=== PATIENT | male | born 1950 | race Caucasian/White ===

== ENCOUNTER 2020-06-12 14:53 | Inpatient (IN) | payer MEDICARE, SELFPAY ==
[2020-06-12 14:57] VITALS: BP 123/83; BP 127/82; PULSE 91; RESP 17; TEMP 36.8; O2SAT 98; BMI 27.8
--- NOTE | 2020-06-12 15:04 | RAD_ITS ---
STUDY: X-RAY - PELVIS AND LEFT HIP REASON FOR EXAM: Male, 69 years old. fall, left hip pain, shortening and rotation TECHNIQUE: 3 views of the pelvis and hip. COMPARISON: None. FINDINGS: There is a non-specific bowel gas pattern. Normal visualized soft tissue structures. Normal bilateral iliac wings, sacroiliac joints and visualized sacrum. Normal bilateral superior and inferior pubic rami. Normal pubic symphysis. Normal bilateral ischial tuberosities. Acute angulated fracture of the intertrochanteric left femur. Normal acetabulum. Normal hip joint. RAD/HIP, UNI W/ Pelvis 2-3 Views IMPRESSION: Acute angulated fracture of the intertrochanteric femur. Electronically Signed: Bennett Rand MD at 16:01 EST Tel , Service support ,
--- NOTE | 2020-06-12 15:04 | EKG12_ITS ---
Test Reason : FALL Blood Pressure : / mmHG Vent. Rate : 083 BPM Atrial Rate : 083 BPM P-R Int : 146 ms QRS Dur : 096 ms QT Int : 372 ms P-R-T Axes : 070 -64 080 degrees QTc Int : 437 ms Sinus rhythm with Premature atrial complexes Left axis deviation Low voltage QRS Abnormal ECG Confirmed by CRIS POLK, SUMAN ([id number]), editor in chief KHAI GOTTLIEB ([id number]) on 06/19/2020 10:26:24 AM Referred By: TAMMIE Confirmed By:SANGEETA LYNCH MD
--- NOTE | 2020-06-12 15:06 | ED.DCSUM_ITS ---
- ER Visit Summary Date of Service: 06/12/20 Chief Complaint: Fall, left hip pain History of Present Illness: The patient is a [address] Black. He reports that he was walking his dog and slipped on the slope of his driveway. States that he landed on his left hip. He has pain extension with movement is pain- free at rest. He denies any loss of consciousness or headache. He is not on anticoagulants. He denies any neck, back, shoulder, wrist, or right hip pain. Physical Examination: Vitals: Stable. Afebrile. Neck: No vertebral tenderness. Full ROM without difficulty. Cleared by NEXUS criteria. Back: No vertebral tenderness. General: A&O x 3. NAD. Cardiovascular exam: Regular rate and rhythm, no murmur, rub or gallop. Respiratory exam: Chest nontender. No crepitus. Clear to auscultation bilaterally. No wheezes or stridor. Abdominal exam: Soft, nontender, nondistended, normal bowel sounds. No pain in RUQ or LUQ specifically. No peritoneal signs. Extremity: Left leg is shortened and externally rotated. He has pain with minimal internal and external rotation. He has a 2+ dorsalis pedis pulse normal sensation to light touch. Test Results: EKG is sinus at 83 with PACs and nonspecific ST changes. Left hip x-ray shows an intertrochanteric fracture. CBC shows 7 neutrophils of 40 and monocytes of 15. Chem-7 is normal. Coags are normal. Chest x-ray shows chronic changes and hyperinflation. Emergency Department Course and Treatment: Patient had an IV on arrival. He was given morphine and Zofran IV. He is resting more comfortably. Treatment Plan: Patient was discussed with Dr. Kebede and Dr. Vargas. He will be admitted to the hospital for further evaluation and treatment. Disposition: Admitted in improved condition. Impression: 1. Fall. 2. Left hip fracture. This note was generated with [employer] dictation software. It may contain incorrect words, spelling, and punctuation that were not noted in review of the chart prior to signing ED Disposition - Plan for ED Patient: Referrals: Inocencio Black MD [Primary Care Provider] -
[2020-06-12 15:11] LABS: Absolute Lymphocyte Count 4.15 X10^3/uL (0.83-4.51); Basophil# 0.09 X10^3/uL; Basophil% 0.9 % (0-1); Eosinophil# 0.37 X10^3/uL; Eosinophils% 3.6 % (0-5); Hematocrit 48.2 % (40-54); Lymphocyte # 4.15 X10^3/ul (4.0); Lymphocyte % 40.8 % (19-41); Mean Corp Hgb Conc 33.2 g/dL (32-36); Mean Corpuscular Hgb 34.7 pg (27.0-32.0); Mean Corpuscular Volume 104.6 fL (80-94); Monocyte# 1.53 X10^3/uL; NRBC Flagged by Analyzer 0 % (0-5); Neutrophil # 4.01 X10^3/uL (2.7-7.7); Neutrophil % 39.5 % (47-70); POSITIVE DIFFERENTIAL YES; Platelet Count 363 K/mm3 (150-450); RBC Distribution Width CV 12.9 % (11.6-14.6); RBC Distribution Width SD 49.9 fl (35.1-43.9); Red Blood Count 4.61 M/mm3 (4.6-6.2); White Blood Count 10.2 K/mm3 (4.4-11.0)
[2020-06-12 15:24] LABS: Prothrombin Time (Protime)PT. 12.7 SECONDS (11.7-14.9)
[2020-06-12 15:25] LABS: Anion Gap 5 (5-15); BUN 14 mg/dL (7-18); BUN/Creat Ratio 14.8 RATIO (10-20); Calcium,Total 9.3 mg/dL (8.5-10.1); Chloride 106 mmol/L (98-107); Creatinine, Serum 0.95 mg/dL (0.70-1.30); EST Glomerular Filtration Rate 84 mL/min (>60); Est Glom Filt Rate - Afr Amer 102 mL/min (>60); Estimated Creatinine Clearance 84.11 ml/min; Glucose 100 mg/dL (74-106); Potassium 3.5 mmol/L (3.5-5.1); Sodium Level 142 mmol/L (136-145)
[2020-06-12] MEDS: Morphine 4 MG/ML Syringe IV ×2 (15:26→16:31)
--- NOTE | 2020-06-12 15:40 | RAD_ITS ---
STUDY: X-RAY CHEST REASON FOR EXAM: Male, 69 years old. fall, left hip pain, shortening and rotation TECHNIQUE: Single AP portable view of the chest. COMPARISON: 05/14/2015 FINDINGS: The lungs are clear and expanded. There is no demonstrated pleural abnormality. Normal size heart. Normal mediastinum and angelica. Normal visualized pulmonary arteries. Normal visualized aortic arch and descending thoracic aorta. Normal visualized thoracic spine. Normal visualized ribs, clavicles, and shoulders. There is no demonstrated abnormality of the visualized soft tissue structures of the upper abdomen. RAD/Chest 1 View (Portable) IMPRESSION: Normal x-ray examination of the chest. Electronically Signed: Bennett Rand MD at 16:01 EST Tel , Service support ,
[2020-06-12 15:49] LABS: Differential Indicated SCAN CRITERIA MET
[2020-06-12 16:15] LABS: Platelet Estimate ADEQUATE (ADEQ); Reactive Lymphocyte 1+
[2020-06-12 16:34] VITALS: BP 111/71; PULSE 78; RESP 16; TEMP 36.8; O2SAT 99
--- NOTE | 2020-06-12 16:36 | NURSING ---
MED SURG WHITE LEFT HIP FX
--- NOTE | 2020-06-12 17:01 | HP.PCM_ITS ---
Problem List (1) Intertrochanteric fracture Status: Acute (2) Nicotine abuse Status: Chronic History of Present Illness Date of Admission: 06/12/20 Chief Complaint: left hip pain The patient is a 69 year old M with pmhx of smoking, HLD, and prior left knee repair with Dr. Varela who presented to the ER with c/o left hip pain. The patient slipped and fell while out walking his dog today. He landed directly on his left hip. He developed severe pain and inability to stand or ambulate. He presented to the ER via EMS and was found to have a left intertroch fracture. The pain has improved to 5/10. He has otherwise been in his normal state of health. [] Past Medical History Past Medical History (Chronic Problems): Chronic Problems Nicotine abuse (Chronic) Allergies No Known Allergies Allergy (Verified 06/12/20 14:56) Home Medications: Ambulatory Orders Medication Instructions Recorded Ascorbic Acid [C-1000] 1,000 mg PO 4X/DAY 06/12/20 Aspirin E.C. [Ecotrin] 81 mg PO DAILY@0800 06/12/20 Aspirin E.C. [Ecotrin] 325 mg PO DAILY@0800 06/12/20 Atorvastatin Calcium [Lipitor] 20 mg PO DAILY 06/12/20 Cholecalciferol (Vitamin D3) 1,000 unit PO DAILY 06/12/20 [Vitamin D3] Cyanocobalamin (Vitamin B-12) 1,000 mcg PO DAILY 06/12/20 [Vitamin B-12] Multivitamin with Minerals 1 tab PO DAILY 06/12/20 [Multiple Vitamin] Vitamin A 8,000 unit PO DAILY 06/12/20 Surgical History: - - left knee repair, small bowel fistula repair, appendectomy Lives: Spouse/ Significant Other Smoking Status: Current every day smoker Tobacco Use: Non-smoker Alcohol: None Drugs: None - *Family History Maternal History Items: No pertinent history Paternal History Items: No pertinent history Review of Systems Constitutional: Denies: Chills, Fever, Weight Change HEENT: Denies: Hard of Hearing, Head Aches, Sinus Congestion, Sinus Drainage Cardiovascular: Denies: Chest Pain, Heaviness, Palpitations Respiratory: Denies: Cough, Shortness of breath at rest, Sputum production Gastrointestinal: Denies: Abdominal Pain, Nausea, Vomiting Genitourinary: Denies: Dysuria Musculoskeletal: Denies: Joint Pain, Joint Tenderness Skin: Denies: Lesions, Rash, Wounds Neurological: Denies: Numbness, Tingling, Focal weakness Psychiatric: Denies: Anxiety, Depression, Homicidal Ideations, Suicidal Ideations Hematologic/ Lymphatic: Denies: Easy Bruising, Easy Bleeding VTE Information - Inpt Only VTE Present on Admission: No VTE Mechan Device Prophylaxis: None VTE Pharm Prophylaxis ordered?: Yes - Physical Exam Vitals/I&O's: Vital Signs Temp Pulse Resp BP Pulse Ox 98.2 F 78 16 111/71 99 06/12/20 16:34 06/12/20 16:34 06/12/20 16:34 06/12/20 16:34 06/12/20 16:34 Oxygen Delivery Method Room Air Weight: 210 lb 15.718 oz Body Mass Index (BMI) 27.8 General: Alert, Oriented x3, Cooperative HEENT: Atraumatic, PERRLA, EOMI, Normocephalic Neck: Supple, No JVD, Negative Carotid Bruits Lungs: Clear to auscultation, Normal air movement Cardiovascular: Regular rate, No murmurs Abdomen: Bowel Sounds Present, Soft, Non Tender Extremities: No edema, Capillary Refill Less than 3 Seconds Skin: No rashes, No breakdown Musculoskeletal: No Tenderness to Palpation of Joints or Extremities Neurological: Cranial nerves II-XII grossly intact Psych/Mental Status: Normal Affect, Appropriate, Alert and oriented to time, place, person, mood and affect Microbiology Past 72 Hours 06/12/20 15:35 Mucosa - Nose SARS-CoV-2 Antigen (Rapid) - Final Laboratory Results 06/12/20 14:42: WBC 10.2, RBC 4.61, Hgb 16.0, Hct 48.2, MCV 104.6 H, MCH 34.7 H, MCHC 33.2, RDW Std Deviation 49.9 H, RDW Coeff of Ena 12.9, Plt Count 363, MPV 10.0, Immature Gran % (Auto) 0.200, Neut % (Auto) 39.5 L, Lymph % (Auto) 40.8, [place] % (Auto) 15.0 H, Eos % (Auto) 3.6, Baso % (Auto) 0.9, Absolute Neuts (auto) 4.0, Absolute Lymphs (auto) 4.15, Nucleated RBC % 0, Differential Comment COMMENT, Reactive Lymphocytes 1+, Platelet Estimate ADEQUATE 06/12/20 14:42: PT 12.7, INR 1.0, APTT 29.0 06/12/20 14:42: Sodium 142, Potassium 3.5, Chloride 106, Carbon Dioxide 31.0, Anion Gap 5, BUN 14, Creatinine 0.95, Estim Creat Clear Calc 84.11, Est GFR (MDRD) Af Amer 102, Est GFR (MDRD) Non-Af 84, BUN/Creatinine Ratio 14.8, Glucose 100, Calcium 9.3 Assessment/Plan All Active Problems Intertrochanteric fracture (Acute) 1. Acute left intertroch fx 2/2 mechanical fall - consult ortho. admit to med surg. NPO after midnight. 2. Nicotine abuse - 1 ppd, whole life. provide patch. 3. HLD - statin DVT ppx: per ortho DC planning: PTOT evals. Pt lives with . Previously without home needs This patient was seen by Guillermo Rasmussen PA-C under the supervision of Dr. Vargas.
--- NOTE | 2020-06-12 17:06 | RAD_ITS ---
STUDY: X-RAY - LEFT KNEE REASON FOR EXAM: Male, 69 years old. Pain after fall TECHNIQUE: 3 Limited view(s) of the knee. COMPARISON: None. FINDINGS: Normal visualized distal femur. Normal visualized proximal tibia and fibula. Normal proximal tibiofibular articulation. There is mild degenerative arthrosis of the medial femorotibial compartment. Normal lateral femorotibial compartment. Normal patellofemoral articulation. The soft tissue structures are unremarkable. RAD/Knee 1 or 2 Views IMPRESSION: No demonstrated fracture in the distal femur or visualized proximal tibia. Medial compartment arthrosis Electronically Signed: Mejia Power MD at 17:24 EST , Service support ,
[2020-06-12 17:53] VITALS: BMI 24.4
--- NOTE | 2020-06-12 17:59 | PCM.CONS.GEN ---
Reason for Consult Date of Consultation: 06/12/20 Reason for Consultation: Left hip pain History of Present Illness: The patient is a 69 year old M [who was walking his dog this afternoon. He slipped and fell this in the snow and broke his left hip. He was admitted via the ED. At the time of my evaluation, he reported only left hip pain, He denied N/T/P or pain in other parts of the axial or appendicular skeleton. His PMHx, PSHx, Family Hx, ROS, Medications and allergies were reviewed as per the chart.] Past Medical History Past Medical History (Chronic Problems): Chronic Problems Nicotine abuse (Chronic) Allergies No Known Allergies Allergy (Verified 06/12/20 14:56) Home Medications: Ambulatory Orders Medication Instructions Recorded Ascorbic Acid [C-1000] 1,000 mg PO 4X/DAY 06/12/20 Aspirin E.C. [Ecotrin] 81 mg PO DAILY@0800 06/12/20 Aspirin E.C. [Ecotrin] 325 mg PO DAILY@0800 06/12/20 Atorvastatin Calcium [Lipitor] 20 mg PO DAILY 06/12/20 Cholecalciferol (Vitamin D3) 1,000 unit PO DAILY 06/12/20 [Vitamin D3] Cyanocobalamin (Vitamin B-12) 1,000 mcg PO DAILY 06/12/20 [Vitamin B-12] Multivitamin with Minerals 1 tab PO DAILY 06/12/20 [Multiple Vitamin] Vitamin A 8,000 unit PO DAILY 06/12/20 Surgical History: - - left knee repair, small bowel fistula repair, appendectomy Lives: Spouse/ Significant Other Smoking Status: Current every day smoker Tobacco Use: Non-smoker Alcohol: None Drugs: None - *Family History Maternal History Items: No pertinent history Paternal History Items: No pertinent history Patient Problems: Active and Suspected Problems Intertrochanteric fracture (Acute) - Physical Exam Vitals/I&O's: Vital Signs Temp Pulse Resp BP Pulse Ox 98.2 F 78 16 111/71 99 06/12/20 16:34 06/12/20 16:34 06/12/20 16:34 06/12/20 16:34 06/12/20 16:34 Oxygen Delivery Method Room Air Weight: 210 lb 15.718 oz Body Mass Index (BMI) 27.8 General: Alert, Oriented x3, Cooperative, No apparent distress HEENT: Atraumatic, PERRLA, EOMI Neck: Supple Extremities: No clubbing, No cyanosis, No edema, Capillary Refill Less than 3 Seconds, No Calf Tenderness, Tenderness - Left hip with shortening and external rotation. ROM not tested due to known fracture. Neurological: Neuro grossly intact Comment: Review of xrays reveals a comminuted,displaced and shortened IT fx Microbiology Past 72 Hours 06/12/20 15:35 Mucosa - Nose SARS-CoV-2 Antigen (Rapid) - Final Laboratory Results 06/12/20 14:42: WBC 10.2, RBC 4.61, Hgb 16.0, Hct 48.2, MCV 104.6 H, MCH 34.7 H, MCHC 33.2, RDW Std Deviation 49.9 H, RDW Coeff of Ena 12.9, Plt Count 363, MPV 10.0, Immature Gran % (Auto) 0.200, Neut % (Auto) 39.5 L, Lymph % (Auto) 40.8, [place] % (Auto) 15.0 H, Eos % (Auto) 3.6, Baso % (Auto) 0.9, Absolute Neuts (auto) 4.0, Absolute Lymphs (auto) 4.15, Nucleated RBC % 0, Differential Comment COMMENT, Reactive Lymphocytes 1+, Platelet Estimate ADEQUATE 06/12/20 14:42: PT 12.7, INR 1.0, APTT 29.0 06/12/20 14:42: Sodium 142, Potassium 3.5, Chloride 106, Carbon Dioxide 31.0, Anion Gap 5, BUN 14, Creatinine 0.95, Estim Creat Clear Calc 84.11, Est GFR (MDRD) Af Amer 102, Est GFR (MDRD) Non-Af 84, BUN/Creatinine Ratio 14.8, Glucose 100, Calcium 9.3 Current Medications Acetaminophen (Acetaminophen 325 Mg Tablet) 650 mg PO Q6H PRN PRN PRN Reason: Pain Score 1-10/Temp > 100.7 F Al Hydroxide/Mg Hydroxide (Mag Hydrox/Al Hydrox/Simeth 30 Ml Udc) 30 ml PO Q6H PRN PRN PRN Reason: Gastric Burning Albuterol Sulfate (Albuterol 2.5 Mg/3 Ml Vial.Neb.) 2.5 mg INHALATION Q2H PRN PRN PRN Reason: Dyspnea, wheezing Atorvastatin Calcium (Atorvastatin Calcium 20 Mg Tablet) 20 mg PO DAILY ROSA Famotidine (Famotidine 20 Mg Tablet) 20 mg PO BID ROSA Guaifenesin (Guaifenesin 10 Ml Udc (200mg/10ml)) 20 ml PO Q4H PRN PRN PRN Reason: COUGH Hydralazine HCl (Hydralazine 20 Mg/Ml Vial) 10 mg IV Q4H PRN PRN PRN Reason: SBP > 160 Hydromorphone HCl (Hydromorphone 0.5 Mg/0.5 Ml Syringe) 0.5 mg IV Q4H PRN PRN PRN Reason: Pain Score 6-10 Sodium Chloride () 1,000 mls @ 100 mls/hr IV .Q10H ROSA Sodium Chloride () 250 mls @ 15 mls/hr IV .[id number] PRN PRN Reason: Saline Flush Sodium Chloride () 250 mls @ 15 mls/hr IV .[id number] PRN PRN Reason: Additional IVPB Infusion Magnesium Hydroxide (Magnesium Hydroxide 30 Ml Udc) 30 ml PO DAILY PRN PRN PRN Reason: Constipation Nicotine (Nicotine 14 Mg Patch) 14 mg TD DAILY PRN PRN Reason: Nicotine Craving Ondansetron HCl (Ondansetron 4 Mg/2 Ml Vial) 4 mg IV Q8H PRN PRN PRN Reason: NAUSEA/VOMITING Oxycodone HCl (Oxycodone 5 Mg Tablet) 5 mg PO Q4H PRN PRN PRN Reason: Pain Score 4-5 Oxycodone HCl (Oxycodone 5 Mg Tablet) 10 mg PO Q4H PRN PRN PRN Reason: Pain Score 6-10 Prochlorperazine Edisylate (Prochlorperazine 10 Mg/2 Ml Vial) 5 mg IV Q4H PRN PRN PRN Reason: Breakthrough nausea/vomiting Psyllium Hydrophilic Mucilloid (Psyllium 1 Packet) 1 packet PO DAILY PRN PRN PRN Reason: Constipation Senna/Docusate Sodium (Senna/Docusate Sodium 1 Tablet) 2 tablet PO BID PRN PRN PRN Reason: Constipation Sodium Chloride (0.9% Saline Lock 10 Ml Syringe) 10 - 40 ml IV UD PRN PRN Reason: SALINE FLUSH Temazepam (Temazepam 15 Mg Capsule) 15 mg PO QHS PRN PRN PRN Reason: INSOMNIA Throat Lozenges (Benzocaine/Menthol 1 Lozenge) 1 lozenge MUCOUS MEM Q2H PRN PRN PRN Reason: SORE THROAT Assessment/Plan All Active Problems Intertrochanteric fracture (Acute) Comminuted, displaced intertrochanteric fracture left hip We will plan on going to the OR tomorrow afternoon for reduction and fixation of this fracture with a Gamma nail. I reviewed with him the potential risks, complications, expected healing time and course and other options and he does wish to proceed.
[2020-06-12 18:18] LABS: Magnesium 2.1 mg/dL (1.6-2.6)
[2020-06-12 18:24] VITALS: BP 98/59; PULSE 71; RESP 16; TEMP 36.8; O2SAT 99
[2020-06-12] MEDS: oxyCODONE 5 MG Tablet 10 MG PO (19:32)
[2020-06-12] MEDS: 0.9% Saline Lock 10 ML Syringe IV (19:33)
[2020-06-12] MEDS: 0.9% Normal Saline 1,000 ML 100 ML IV (19:38)
[2020-06-12 20:33] VITALS: PULSE 65
[2020-06-12 20:48] VITALS: BP 112/55; PULSE 46; RESP 16; TEMP 37; O2SAT 96
[2020-06-12] MEDS: Acetaminophen 325 MG Tablet 650 MG PO (21:04)
--- NOTE | 2020-06-12 23:04 | PCS.PANDOC ---
PANDEMIC DOCUMENTATION INITIATED: Date: Time:
[2020-06-12 23:48] VITALS: BP 139/59; PULSE 79; RESP 15; TEMP 36.9; O2SAT 94
[2020-06-12] MEDS: HYDROmorphone 0.5 MG/0.5 ML SYRINGE IV (23:58)
[2020-06-13] VITALS (15 sets, daily range): BP systolic 107–157; BP diastolic 52–77; PULSE 62–96; RESP 16–20; TEMP 36.8–37.4; O2SAT 94–98; BMI 24.4
[2020-06-13] MEDS: oxyCODONE 5 MG Tablet 10 MG PO ×2 (02:38→18:30)
[2020-06-13] MEDS: Acetaminophen 325 MG Tablet 650 MG PO ×2 (05:03→18:30)
[2020-06-13 07:29] LABS: Absolute Lymphocyte Count 2.35 X10^3/uL (0.83-4.51); Absolute Neutrophil Count 6.7 X10^3/uL (2.0-7.7); Basophil# 0.06 X10^3/uL; Basophil% 0.5 % (0-1); Eosinophil# 0.18 X10^3/uL; Eosinophils% 1.6 % (0-5); Hemoglobin 11.9 g/dL (13.0-16.5); Lymphocyte # 2.35 X10^3/ul (4.0); Lymphocyte % 21.3 % (19-41); Mean Corp Hgb Conc 32.2 g/dL (32-36); Mean Corpuscular Hgb 33.6 pg (27.0-32.0); Mean Corpuscular Volume 104.5 fL (80-94); Mean Platelet Vol. 9.7 fl (6.2-12.0); Monocyte# 1.68 X10^3/uL; Monocyte% 15.2 % (0-10); NRBC Flagged by Analyzer 0 % (0-5); Neutrophil # 6.73 X10^3/uL (2.7-7.7); POSITIVE DIFFERENTIAL YES; Platelet Count 245 K/mm3 (150-450); RBC Distribution Width CV 13.2 % (11.6-14.6); RBC Distribution Width SD 50.8 fl (35.1-43.9); Red Blood Count 3.54 M/mm3 (4.6-6.2)
[2020-06-13 07:35] LABS: Differential Indicated SCAN CRITERIA MET
[2020-06-13 07:37] LABS: International Normalized Ratio 1.1; Prothrombin Time (Protime)PT. 13.9 SECONDS (11.7-14.9)
[2020-06-13 07:38] LABS: Partial Thromboplast Time 30.5 Seconds (24.1-36.2)
[2020-06-13 08:11] LABS: ALB/GLOB Ratio 1.1 RATIO (0.9-2.4); AST(SGOT) 9 U/L (15-37); Alanine Aminotransfer ALT/SGPT 19 U/L (16-61); Albumin, Serum 3.1 g/dL (3.2-5.0); Alkaline Phosphatase 103 U/L (45-117); Anion Gap 5 (5-15); BUN 14 mg/dL (7-18); BUN/Creat Ratio 20.5 RATIO (10-20); Calcium,Total 7.8 mg/dL (8.5-10.1); Chloride 108 mmol/L (98-107); Creatinine, Serum 0.68 mg/dL (0.70-1.30); EST Glomerular Filtration Rate 122 mL/min (>60); Est Glom Filt Rate - Afr Amer 148 mL/min (>60); Globulin 2.7 g/dL (2.2-4.2); Glucose 101 mg/dL (74-106); Potassium 3.6 mmol/L (3.5-5.1); Protein, Total 5.8 g/dL (6.4-8.2); Sodium Level 141 mmol/L (136-145)
[2020-06-13] MEDS: 0.9% Saline Lock 10 ML Syringe IV ×2 (08:21→11:56)
[2020-06-13] MEDS: HYDROmorphone 0.5 MG/0.5 ML SYRINGE IV (08:21)
[2020-06-13] MEDS: Famotidine 20 MG Tablet PO (09:38)
--- NOTE | 2020-06-13 11:45 | RAD_ITS ---
STUDY: X-RAY - PELVIS AND LEFT HIP REASON FOR EXAM: Male, 69 years old. ORIF hip, gamma nail long. TECHNIQUE: 3 intraoperative views of the pelvis and hip. COMPARISON: None. FINDINGS: 3 limited intraoperative C-arm films were performed of the left femur as the patient has undergone ORIF of an intertrochanteric fracture to the left femur. Alignment at the fracture site is anatomic. Hardware is free of complication, follow-up recommended to assure osseous union RAD/Hip Min 2 Views (Portable) IMPRESSION: Status post ORIF of an intertrochanteric fracture of the left femur. Alignment at the fracture site is anatomic. Follow-up recommended to assure osseous union Electronically Signed: Mejia Power MD at 16:34 EST , Service support ,
--- NOTE | 2020-06-13 11:50 | PN_ITS ---
Patient Problems: Active and Suspected Problems Intertrochanteric fracture (Acute) Reason for Visit: Follow-up for left hip fracture. Objective: Patient has history of smoking more than 40 pack years of cigarette smoking. Does not want to quit. Admitted with left hip intertrochanteric fracture. Complain of pain 7/10 intensity. Urine output 125 mL since 6 AM Physical exam: General: Alert, Oriented x3, Cooperative HEENT: Atraumatic, PERRLA, EOMI, Normocephalic Oral: No Gingival or Mucosal Lesions/ Ulcerations Neck: Supple, No JVD, Negative Carotid Bruits Lungs: Air entry diminished in bilateral lung bases. No crepitation/rhonchi Cardiovascular: Regular rate, Regular Rhythm, Normal S1, Normal S2, No murmurs Abdomen: Bowel Sounds Present, Soft, Non Tender, Non-Distended : No renal angle tenderness. No suprapubic tenderness. Extremities: Left lower extremity externally rotated. Tenderness over left hip joint. Capillary Refill Less than 3 Seconds Skin: No rashes, No breakdown Musculoskeletal: ROM restricted over left hip, left knee joint. No Tenderness to Palpation of other joints or Extremities except left hip Neurological: Cranial nerves II-XII grossly intact, Deep Tendon Reflexes 2+/4 and Symmetrical, Neuro grossly intact Psych/Mental Status: Normal Affect, Appropriate. Vitals/I&O's: Vital Signs Temp Pulse Resp BP Pulse Ox 98.6 F 72 18 111/57 L 96 06/13/20 11:37 06/13/20 11:37 06/13/20 11:37 06/13/20 11:37 06/13/20 11:37 Oxygen Flow Rate (L/min) 2 Oxygen Delivery Method Nasal Cannula Weight: 185 lb 3.013 oz Body Mass Index (BMI) 24.4 Intake and Output for Last 24 Hours 06/11/20 06/12/20 06/13/20 23:59 23:59 23:59 Intake Total 2325 / 2325 Output Total 475 / 475 Balance 1850 / 1850 Microbiology Past 72 Hours 06/12/20 15:35 Mucosa - Nose SARS-CoV-2 Antigen (Rapid) - Final Laboratory Results 06/12/20 14:42: WBC 10.2, RBC 4.61, Hgb 16.0, Hct 48.2, MCV 104.6 H, MCH 34.7 H, MCHC 33.2, RDW Std Deviation 49.9 H, RDW Coeff of Ena 12.9, Plt Count 363, MPV 10.0, Immature Gran % (Auto) 0.200, Neut % (Auto) 39.5 L, Lymph % (Auto) 40.8, [place] % (Auto) 15.0 H, Eos % (Auto) 3.6, Baso % (Auto) 0.9, Absolute Neuts (auto) 4.0, Absolute Lymphs (auto) 4.15, Nucleated RBC % 0, Differential Comment COMME NT, Reactive Lymphocytes 1+, Platelet Estimate ADEQUATE 06/12/20 14:42: PT 12.7, INR 1.0, APTT 29.0 06/12/20 14:42: Sodium 142, Potassium 3.5, Chloride 106, Carbon Dioxide 31.0, Anion Gap 5, BUN 14, Creatinine 0.95, Estim Creat Clear Calc 84.11, Est GFR (MDRD) Af Amer 102, Est GFR (MDRD) Non-Af 84, BUN/Creatinine Ratio 14.8, Glucose 100, Calcium 9.3 06/12/20 14:42: Magnesium 2.1 06/13/20 07:00: WBC 11.0, RBC 3.54 L, Hgb 11.9 L, Hct 37.0 L, MCV 104.5 H, MCH 33.6 H, MCHC 32.2, RDW Std Deviation 50.8 H, RDW Coeff of Ena 13.2, Plt Count 245, MPV 9.7, Immature Gran % (Auto) 0.400, Neut % (Auto) 61.0, Lymph % (Auto) 21.3, [place] % (Auto) 15.2 H, Eos % (Auto) 1.6, Baso % (Auto) 0.5, Absolute Neuts (auto) 6.7, Absolute Lymphs (auto) 2.35, Nucleated RBC % 0, Differential Comment COMMENT 06/13/20 07:00: PT 13.9, INR 1.1, APTT 30.5 06/13/20 07:00: Sodium 141, Potassium 3.6, Chloride 108 H, Carbon Dioxide 28.0, Anion Gap 5, BUN 14, Creatinine 0.68 L, Estim Creat Clear Calc 79.90, Est GFR (MDRD) Af Amer 148, Est GFR (MDRD) Non-Af 122, BUN/Creatinine Ratio 20.5 H, Glucose 101, Calcium 7.8 L, Total Bilirubin 0.90, AST 9 L, ALT 19, Alkaline Phosphatase 103, Total Protein 5.8 L, Albumin 3.1 L, Globulin 2.7, Albumin/Globulin Ratio 1.1 06/13/20 07:00: Blood Type O NEGATIVE, Antibody Screen NEGATIVE Current Medications Acetaminophen (Acetaminophen 325 Mg Tablet) 650 mg PO Q6H PRN PRN PRN Reason: Pain Score 1-10/Temp > 100.7 F Last Admin: 06/13/20 05:03 Dose: 650 mg Documented by: Al Hydroxide/Mg Hydroxide (Mag Hydrox/Al Hydrox/Simeth 30 Ml Udc) 30 ml PO Q6H PRN PRN PRN Reason: Gastric Burning Albuterol Sulfate (Albuterol 2.5 Mg/3 Ml Vial.Neb.) 2.5 mg INHALATION Q2H PRN PRN PRN Reason: Dyspnea, wheezing Atorvastatin Calcium (Atorvastatin Calcium 20 Mg Tablet) 20 mg PO QHS [facility] Last Admin: 06/12/20 21:12 Dose: Not Given Documented by: Famotidine (Famotidine 20 Mg Tablet) 20 mg PO BID [facility] Last Admin: 06/13/20 09:38 Dose: 20 mg Documented by: Guaifenesin (Guaifenesin 10 Ml Udc (200mg/10ml)) 20 ml PO Q4H PRN PRN PRN Reason: COUGH Hydralazine HCl (Hydralazine 20 Mg/Ml Vial) 10 mg IV Q4H PRN PRN PRN Reason: SBP > 160 Hydromorphone HCl (Hydromorphone 1 Mg/Ml Syringe) 1 mg IV X1 ONE Stop: 06/13/20 11:50 Hydromorphone HCl (Hydromorphone 0.5 Mg/0.5 Ml Syringe) 1 mg IV Q4H PRN PRN PRN Reason: Pain Score 6-10 Sodium Chloride () 250 mls @ 15 mls/hr IV .[id number] PRN PRN Reason: Saline Flush Sodium Chloride () 250 mls @ 15 mls/hr IV .[id number] PRN PRN Reason: Additional IVPB Infusion Cefazolin Sodium 2 gm/ Sodium (Chloride) 110 mls @ 150 mls/hr IV X1 ONE Stop: 06/13/20 13:43 Lactated Ringer's () 1,000 mls @ 999 mls/hr IV .[id number] ROSA Stop: 06/13/20 12:50 Lactated Ringer's () 1,000 mls @ 100 mls/hr IV .Q10H [facility] Stop: 06/13/20 21:49 Magnesium Hydroxide (Magnesium Hydroxide 30 Ml Udc) 30 ml PO DAILY PRN PRN PRN Reason: Constipation Nicotine (Nicotine 14 Mg Patch) 14 mg TD DAILY PRN PRN Reason: Nicotine Craving Ondansetron HCl (Ondansetron 4 Mg/2 Ml Vial) 4 mg IV Q8H PRN PRN PRN Reason: NAUSEA/VOMITING Oxycodone HCl (Oxycodone 5 Mg Tablet) 5 mg PO Q4H PRN PRN PRN Reason: Pain Score 4-5 Oxycodone HCl (Oxycodone 5 Mg Tablet) 10 mg PO Q4H PRN PRN PRN Reason: Pain Score 6-10 Last Admin: 06/13/20 02:38 Dose: 10 mg Documented by: Prochlorperazine Edisylate (Prochlorperazine 10 Mg/2 Ml Vial) 5 mg IV Q4H PRN PRN PRN Reason: Breakthrough nausea/vomiting Psyllium Hydrophilic Mucilloid (Psyllium 1 Packet) 1 packet PO DAILY PRN PRN PRN Reason: Constipation Senna/Docusate Sodium (Senna/Docusate Sodium 1 Tablet) 2 tablet PO BID PRN PRN PRN Reason: Constipation Sodium Chloride (0.9% Saline Lock 10 Ml Syringe) 10 - 40 ml IV UD PRN PRN Reason: SALINE FLUSH Last Admin: 06/13/20 08:21 Dose: 10 ml Documented by: Temazepam (Temazepam 15 Mg Capsule) 15 mg PO QHS PRN PRN PRN Reason: INSOMNIA Throat Lozenges (Benzocaine/Menthol 1 Lozenge) 1 lozenge MUCOUS MEM Q2H PRN PRN PRN Reason: SORE THROAT STROKE Vital Signs/Narrative: Vital Signs Temp Pulse Resp BP Pulse Ox 06/13/20 11:37 98.6 F 72 18 111/57 L 96 06/13/20 11:32 98.6 F 72 18 111/57 L 96 06/13/20 08:10 98.5 F 64 18 112/52 L 96 Medical Necessity - Tobacco Use Smoking Status: Current every day smoker Tobacco Use: Non-smoker Assessment/Plan All Active Problems Intertrochanteric fracture (Acute) This is a 69-year-old gentleman with history of chronic cigarette smoking more than 40 packs came to ED with left hip pain after slip and fall and x-ray finding of left hip intertrochanteric fracture. 1. Acute angulated left intertrochanteric fracture mechanical fall -heart rate and blood pressure in normal range. Twelve-lead EKG normal sinus rhythm with no acute evidence of ischemia. Chest x-ray no acute cardiopulmonary findings. Clinically possibility of underlying undiagnosed COPD as patient has cough with sputum early in the morning after he wakes up. Does not willing to quit smoking. NSQIP perioperative low risk. Pain management, incentive spirometry, PT and OT. 2. Low urine output, oliguria: Patient had 125 mL dark-colored urine since 6 AM. Total urine output charted found 75 mils since admission. Ringer lactate 1000 mL bolus and 100 mils per hour. 3. Chronic cigarette smoking with possibility of underlying COPD: Advised outpatient PFT patient has declined. On nicotine patch. DuoNeb as needed. 4 dyslipidemia: Statin. DVT ppx: Moderate to high risk based on the left hip fracture, chronic smoking: As per orthopedic surgeon discretion but prefer Lovenox 40 mg subcu daily for Eliquis 2.5 mg p.o. twice daily after surgery once bleeding risk is acceptable. DC planning: PTOT evals. Pt lives with . Previously without home needs Clinical Impression(s) from Imaging Studies Hip/Pelvis X-Ray 06/12/20 15:04 IMPRESSION: Acute angulated fracture of the intertrochanteric femur. Chest X-Ray 06/12/20 15:40 IMPRESSION: Normal x-ray examination of the chest. Electronically Signed: Bennett Rand MD at 16:01 EST Tel , Service support , Knee X-Ray 06/12/20 17:06 IMPRESSION: No demonstrated fracture in the distal femur or visualized proximal tibia. Medial compartment arthrosis Microbiology Past 72 Hours 06/12/20 15:35 Mucosa - Nose SARS-CoV-2 Antigen (Rapid) - Final Laboratory Results 06/12/20 14:42: WBC 10.2, RBC 4.61, Hgb 16.0, Hct 48.2, MCV 104.6 H, MCH 34.7 H, MCHC 33.2, RDW Std Deviation 49.9 H, RDW Coeff of Ena 12.9, Plt Count 363, MPV 10.0, Immature Gran % (Auto) 0.200, Neut % (Auto) 39.5 L, Lymph % (Auto) 40.8, [place] % (Auto) 15.0 H, Eos % (Auto) 3.6, Baso % (Auto) 0.9, Absolute Neuts (auto) 4.0, Absolute Lymphs (auto) 4.15, Nucleated RBC % 0, Differential Comment COMMENT, Reactive Lymphocytes 1+, Platelet Estimate ADEQUATE 06/12/20 14:42: PT 12.7, INR 1.0, APTT 29.0 06/12/20 14:42: Sodium 142, Potassium 3.5, Chloride 106, Carbon Dioxide 31.0, Anion Gap 5, BUN 14, Creatinine 0.95, Estim Creat Clear Calc 84.11, Est GFR (MDRD) Af Amer 102, Est GFR (MDRD) Non-Af 84, BUN/Creatinine Ratio 14.8, Glucose 100, Calcium 9.3 06/12/20 14:42: Magnesium 2.1 06/13/20 07:00: WBC 11.0, RBC 3.54 L, Hgb 11.9 L, Hct 37.0 L, MCV 104.5 H, MCH 33.6 H, MCHC 32.2, RDW Std Deviation 50.8 H, RDW Coeff of Ena 13.2, Plt Count 245, MPV 9.7, Immature Gran % (Auto) 0.400, Neut % (Auto) 61.0, Lymph % (Auto) 21.3, [place] % (Auto) 15.2 H, Eos % (Auto) 1.6, Baso % (Auto) 0.5, Absolute Neuts (auto) 6.7, Absolute Lymphs (auto) 2.35, Nucleated RBC % 0, Differential Comment COMMENT 06/13/20 07:00: PT 13.9, INR 1.1, APTT 30.5 06/13/20 07:00: Sodium 141, Potassium 3.6, Chloride 108 H, Carbon Dioxide 28.0, Anion Gap 5, BUN 14, Creatinine 0.68 L, Estim Creat Clear Calc 79.90, Est GFR (MDRD) Af Amer 148, Est GFR (MDRD) Non-Af 122, BUN/Creatinine Ratio 20.5 H, Glucose 101, Calcium 7.8 L, Total Bilirubin 0.90, AST 9 L, ALT 19, Alkaline Phosphatase 103, Total Protein 5.8 L, Albumin 3.1 L, Globulin 2.7, Albumin/Globulin Ratio 1.1 06/13/20 07:00: Blood Type O NEGATIVE, Antibody Screen NEGATIVE Inpatient E&M: 12563 Subs Hosp L2
--- NOTE | 2020-06-13 11:50 | CASEMGMT ---
RN CM Face to Face with patient for initial transition planning/care coordination assessment. RN CM introduced self and role at [facility]. Patient lying in bed, alert and oriented. Patient willing to participate in assessment and is able to answer all questions appropriately. Care providers, pharmacy, and demographics verified. Patient wishes to discharge home, will monitor for HHC vs Outpt PT vs SNF pending how patient progresses with therapy. Patient states he has no further needs or concerns at this time. CM to follow for discharge planning needs that may arise. PCP: Wayne Specialists: none Preferred Pharmacy: [facility] Insurance: [employer] [facility] Prescription Benefit: yes Living Will/HPOA: yes, Cinthya Colón LNOK: Living Arrangements: Patient live with in a 2 story home with bed and bath on second floor. Patient states he has double railing to second floor. Patient states he was independent at home. Transportation: self, DME/HHC: Patient states he has crutches, will monitor for need for walker at discharge. Disposition Plan: TBD. Will monitor how patient progresses with therapy to determine disposition plan. Stephanie STEWART, RN, CM
[2020-06-13] MEDS: Lactated Ringers 1,000 ML 999 ML IV (11:52)
[2020-06-13] MEDS: HYDROmorphone 1 MG/ML Syringe IV (11:55)
[2020-06-13] MEDS: Cefazolin 2 GM in 0.9% Normal Saline 100 ML IV (13:37)
[2020-06-13] MEDS: Lactated Ringers 1,000 ML 100 ML IV ×2 (14:00→15:53)
--- NOTE | 2020-06-13 14:43 | PCM.OPRPT ---
Report of Operation Date of Procedure: 06/13/20 Pre-Operative Diagnosis: Comminuted, displaced intertrochanteric fracture left hip Post-Operative Diagnosis: same Surgery/Procedure Performed:: ORIF left hip with 400 mm x 13 mm Gamma nail Description of Surgical Findings:: Primary Surgeon/Physician: Rosendo Varela clothespin drier operator: LESLEY Nichols clothespin drier operator: Pre-Operative Diagnosis: Comminuted, displace intertrochanteric fracture left hip Post-Operative Diagnosis: same Surgery/Procedure Performed: ORIF left hip Estimated Blood Loss: 150 cc Specimen's Removed: none Type of Anesthesia: general ASA Class: 2 Implants: [place] Gamma nail 13mm x 400 mm, 110 mm lag screw, 50 mm locking screw Procedure Description: The patient was greeted in the preoperative area. The [left ] lower extremity was marked with surgical marker. Preoperative antibiotics were administered. The patient was then placed in supine position on a fracture table, a padded perineal post was utilized, all bony prominences were well-padded. Patient's leg was then secured in the fracture leg huizar and the well leg was placed in the well-leg huizar both were well-padded. Closed reduction maneuver was then performed under biplanar fluoroscopic imaging. Once anatomic alignment of the fracture was confirmed the leg was prepped and draped in usual sterile fashion. Surgical timeout was performed and surgery was commenced. Fluoroscopic imaging was used to identify the tip of the greater trochanter. A 3 cm incision was then made 3 cm above the tip of the greater trochanter and a guidepin was then placed at the junction of the anterior one third and posterior two thirds of the greater trochanter. This was then placed intramedullary. an opening reamer was then used and a ball-tipped guidewire was then placed to the superior pole of the patella and measured. Sequential reaming was then commenced over the ball-tipped guidewire to the appropriate diameter and where chatter was identified. Appropriate size Gamma nail was then placed on the guide handle on the operating table and confirmed to be appropriately placed. This was then inserted into the body over the ball-tipped guidewire to the appropriate depth. A stab incision was then made on lateral aspect of the thigh for placement of the lag screw which was then placed in center-center position confirmed in both AP and lateral. Lag screw reamer was then used over the guidepin and the lag screw was then placed into subchondral bone with tip to apex distance less than 25 mm on both the AP and lateral. The insertion handle was then removed after the compression screw was applied. Attention was then turned to the distal fixation. A perfect jackson technique was used and a screw was then placed from lateral to medial through the eccentric hole distally. This was drilled measured and a screw was placed with excellent purchase. Final imaging was obtained with fluoroscopic imaging AP and lateral. The wounds were then irrigated with copious irrigation and closed in layers with 2-0 Vicryl and surgical ashlee. A well-padded nonadherent dressing is applied patient was taken to recovery room in stable condition. Postoperatively patient may be weightbearing as tolerated without restrictions clothespin drier operator: Amador Rushing Type of Anesthesia:: General Anesthesiologist: Edgar Angulo Estimated Blood Loss (mL): 150 cc - Admit VTE Documentation VTE Present on Admission: No VTE Mechan Device Prophylaxis: SCD's VTE Pharm Prophylaxis ordered?: Yes
[2020-06-13 15:46] LABS: Hematocrit 38.9 % (40-54); Hemoglobin 12.4 g/dL (13.0-16.5); Mean Corp Hgb Conc 31.9 g/dL (32-36); Mean Corpuscular Hgb 34.1 pg (27.0-32.0); Mean Corpuscular Volume 106.9 fL (80-94); Mean Platelet Vol. 9.6 fl (6.2-12.0); Platelet Count 241 K/mm3 (150-450); RBC Distribution Width CV 13.1 % (11.6-14.6); RBC Distribution Width SD 52.6 fl (35.1-43.9); Red Blood Count 3.64 M/mm3 (4.6-6.2); White Blood Count 12.9 K/mm3 (4.4-11.0)
[2020-06-13 15:55] LABS: Anion Gap 5 (5-15); BUN 12 mg/dL (7-18); BUN/Creat Ratio 13.4 RATIO (10-20); Calcium,Total 7.7 mg/dL (8.5-10.1); Chloride 106 mmol/L (98-107); EST Glomerular Filtration Rate 89 mL/min (>60); Est Glom Filt Rate - Afr Amer 108 mL/min (>60); Estimated Creatinine Clearance 88.78 ml/min; Glucose 131 mg/dL (74-106); Potassium 4.3 mmol/L (3.5-5.1); Sodium Level 139 mmol/L (136-145)
[2020-06-13] MEDS: 0.9% Normal Saline 1,000 ML 100 ML IV (16:56)
[2020-06-13] MEDS: Senna/Docusate Sodium 1 Tablet 2 TABLET PO (18:30)
[2020-06-13] MEDS: Atorvastatin Calcium 20 MG Tablet PO (21:37)
[2020-06-13] MEDS: Cefazolin 1 GM/50 ML BAG IV (21:37)
[2020-06-13] MEDS: Temazepam 15 MG Capsule PO (23:12)
[2020-06-14] VITALS (9 sets, daily range): BP systolic 103–118; BP diastolic 47–63; PULSE 88–107; RESP 18–20; TEMP 36.7–37.5; O2SAT 92–98; BMI 24.4
[2020-06-14] MEDS: oxyCODONE 5 MG Tablet 10 MG PO ×4 (03:28→18:15)
[2020-06-14] MEDS: Enoxaparin 40 MG/0.4 ML Syringe SC (06:20)
[2020-06-14] MEDS: Cefazolin 1 GM/50 ML BAG IV (06:20)
[2020-06-14 07:38] LABS: Hematocrit 28.7 % (40-54); Hemoglobin 9.4 g/dL (13.0-16.5); Mean Corp Hgb Conc 32.8 g/dL (32-36); Mean Corpuscular Hgb 34.4 pg (27.0-32.0); Mean Corpuscular Volume 105.1 fL (80-94); Mean Platelet Vol. 9.6 fl (6.2-12.0); Platelet Count 183 K/mm3 (150-450); RBC Distribution Width CV 12.8 % (11.6-14.6); RBC Distribution Width SD 49.2 fl (35.1-43.9); Red Blood Count 2.73 M/mm3 (4.6-6.2); White Blood Count 10.5 K/mm3 (4.4-11.0)
--- NOTE | 2020-06-14 09:04 | PN.ORTHO_ITS ---
Patient Problems: Active and Suspected Problems Intertrochanteric fracture (Acute) Subjective: Pt. doing well. Left hip pain with motion. Denies N/T/P. - Physical Exam Vitals/I&O's: Vital Signs Temp Pulse Resp BP Pulse Ox 99.5 F H 91 18 111/63 92 06/14/20 03:10 06/14/20 03:10 06/14/20 03:10 06/14/20 03:10 06/14/20 07:27 Oxygen Flow Rate (L/min) 2 Oxygen Delivery Method Nasal Cannula Weight: 185 lb 3.013 oz Body Mass Index (BMI) 24.4 Intake and Output for Last 24 Hours 06/12/20 06/13/20 06/14/20 23:59 23:59 23:59 Intake Total 5443.33 / 5443.33 1063.33 / 1063.33 Output Total 1175 / 1175 450 / 450 Balance 4268.33 / 4268.33 613.33 / 613.33 General: Alert, Oriented x3, Cooperative, No apparent distress Extremities: No clubbing, No cyanosis, No edema, Capillary Refill Less than 3 Seconds, No Calf Tenderness Skin: Incision - stable without drainage Neurological: Neuro grossly intact Microbiology Past 72 Hours 06/12/20 15:35 Mucosa - Nose SARS-CoV-2 Antigen (Rapid) - Final Laboratory Results 06/13/20 07:00: Blood Type O NEGATIVE, Antibody Screen NEGATIVE 06/13/20 15:36: WBC 12.9 H, RBC 3.64 L, Hgb 12.4 L, Hct 38.9 L, MCV 106.9 H, MCH 34.1 H, MCHC 31.9 L, RDW Std Deviation 52.6 H, RDW Coeff of Ena 13.1, Plt Count 241, MPV 9.6 06/13/20 15:36: Sodium 139, Potassium 4.3, Chloride 106, Carbon Dioxide 28.0, Anion Gap 5, BUN 12, Creatinine 0.90, Estim Creat Clear Calc 88.78, Est GFR (MDRD) Af Amer 108, Est GFR (MDRD) Non-Af 89, BUN/Creatinine Ratio 13.4, Glucose 131 H, Calcium 7.7 L 06/14/20 07:25: WBC 10.5, RBC 2.73 L, Hgb 9.4 L, Hct 28.7 L, MCV 105.1 H, MCH 34.4 H, MCHC 32.8, RDW Std Deviation 49.2 H, RDW Coeff of Ena 12.8, Plt Count 183, MPV 9.6 Current Medications Acetaminophen (Acetaminophen 325 Mg Tablet) 650 mg PO Q6H PRN PRN PRN Reason: Pain Score 1-10/Temp > 100.7 F Last Admin: 06/13/20 18:30 Dose: 650 mg Documented by: Acetaminophen/Codeine Phosphate (Acetaminophen/Codeine #3 Tablet) 1 - 2 tablet PO Q6H PRN PRN PRN Reason: Pain Score 1-3 Al Hydroxide/Mg Hydroxide (Mag Hydrox/Al Hydrox/Simeth 30 Ml Udc) 30 ml PO Q6H PRN PRN PRN Reason: Gastric Burning Albuterol Sulfate (Albuterol 2.5 Mg/3 Ml Vial.Neb.) 2.5 mg INHALATION Q2H PRN PRN PRN Reason: Dyspnea, wheezing Atorvastatin Calcium (Atorvastatin Calcium 20 Mg Tablet) 20 mg PO QHS [facility] Last Admin: 06/13/20 21:37 Dose: 20 mg Documented by: Enoxaparin Sodium (Enoxaparin 40 Mg/0.4 Ml Syringe) 40 mg SC DAILY@0600 [facility] Last Admin: 06/14/20 06:20 Dose: 40 mg Documented by: Famotidine (Famotidine 20 Mg Tablet) 20 mg PO BID [facility] Last Admin: 06/13/20 21:37 Dose: Not Given Documented by: Guaifenesin (Guaifenesin 10 Ml Udc (200mg/10ml)) 20 ml PO Q4H PRN PRN PRN Reason: COUGH Hydralazine HCl (Hydralazine 20 Mg/Ml Vial) 10 mg IV Q4H PRN PRN PRN Reason: SBP > 160 Hydromorphone HCl (Hydromorphone 0.5 Mg/0.5 Ml Syringe) 1 mg IV Q4H PRN PRN PRN Reason: Pain Score 6-10 Sodium Chloride () 250 mls @ 15 mls/hr IV .[id number] PRN PRN Reason: Saline Flush Sodium Chloride () 250 mls @ 15 mls/hr IV .[id number] PRN PRN Reason: Additional IVPB Infusion Magnesium Hydroxide (Magnesium Hydroxide 30 Ml Udc) 30 ml PO DAILY PRN PRN PRN Reason: Constipation Nicotine (Nicotine 14 Mg Patch) 14 mg TD DAILY PRN PRN Reason: Nicotine Craving Ondansetron HCl (Ondansetron 4 Mg/2 Ml Vial) 4 mg IV Q8H PRN PRN PRN Reason: NAUSEA/VOMITING Oxycodone HCl (Oxycodone 5 Mg Tablet) 5 mg PO Q4H PRN PRN PRN Reason: Pain Score 4-5 Oxycodone HCl (Oxycodone 5 Mg Tablet) 10 mg PO Q4H PRN PRN PRN Reason: Pain Score 6-10 Last Admin: 06/14/20 03:28 Dose: 10 mg Documented by: Prochlorperazine Edisylate (Prochlorperazine 10 Mg/2 Ml Vial) 5 mg IV Q4H PRN PRN PRN Reason: Breakthrough nausea/vomiting Psyllium Hydrophilic Mucilloid (Psyllium 1 Packet) 1 packet PO DAILY PRN PRN PRN Reason: Constipation Senna/Docusate Sodium (Senna/Docusate Sodium 1 Tablet) 2 tablet PO BID PRN PRN PRN Reason: Constipation Last Admin: 06/13/20 18:30 Dose: 2 tablet Documented by: Sodium Chloride (0.9% Saline Lock 10 Ml Syringe) 10 - 40 ml IV UD PRN PRN Reason: SALINE FLUSH Last Admin: 06/13/20 11:56 Dose: 10 ml Documented by: Temazepam (Temazepam 15 Mg Capsule) 15 mg PO QHS PRN PRN PRN Reason: INSOMNIA Last Admin: 06/13/20 23:12 Dose: 15 mg Documented by: Throat Lozenges (Benzocaine/Menthol 1 Lozenge) 1 lozenge MUCOUS MEM Q2H PRN PRN PRN Reason: SORE THROAT Medical Necessity - Tobacco Use Smoking Status: Current every day smoker Tobacco Use: Non-smoker Assessment/Plan All Active Problems Intertrochanteric fracture (Acute) s/p ORIF left hip fracture with long Gamma nail PT today, WBAT Eliquis for DVT prophylaxis Discharge either to home or ECF Follow up with me in my office in 10 days for staple removal and wound check Case discussed with hospitalist.
[2020-06-14] MEDS: Acetaminophen 325 MG Tablet 650 MG PO ×2 (09:20→18:15)
[2020-06-14] MEDS: Famotidine 20 MG Tablet PO ×2 (09:20→21:10)
[2020-06-14] MEDS: Senna/Docusate Sodium 1 Tablet 2 TABLET PO (09:20)
--- NOTE | 2020-06-14 09:54 | CASEMGMT ---
Addendum entered by Melany Timmons 06/14/20 11:59: PT/OT evaluations completed, SW let Cindy on the referral line know, she will contact physician regarding the referral. SATURNINO Antoine Addendum entered by Melany Timmons 06/14/20 10:27: SW spoke w/pt again in regard to options. We discussed rehab as a possible option as well, SW explained to pt that he would need be approved both by the physician and by insurance. SW explained that he may not be approves but we can try. Pt is in agreement with trying to see if rehab will take him and insurance will approve. Pt states if he cannot go to rehab, he is going home. Pt is refusing to go to a halfway for rehab. SW explained we will start the process and will let him know. Pt asked about equipment for homegoing. SW explained to pt that if he does end up going home, we will order the DME needed, explained some is covered by insurance and some is not, we will let him know if he ends up going home. Pt states understanding. SW called rehab, made referral. Cindy will let SW know if physician will accept and if so will start precert. If pt is accepted and precert is attained, they would have a bed for him Wednesday. SW will continue to follow. SATURNINO Antoine Original Note: SW spoke w/pt in room about discharge options. Pt aware he would have a difficult time going home, but does not want to go to a halfway either. Pt expressed frustration with the current situation. Pt asked what kind of help he would get if he were to go home, SW explained that with home care he would get therapy and an aide once per week. We discussed how much help pt needed with therapy, pt confirmed needed help of two people. Pt lives home w/ and would not be able to assist pt to level needed at present. SW gave pt list of nursing homes in network, pt is not at this time able to give SW any choices, not wanting to go to any of the facilities listed. Pt is going to call his , SW explained will come back shortly to see what they have decided. SW will continue to follow. SATURNINO Antoine
--- NOTE | 2020-06-14 14:08 | CASEMGMT ---
Rehab will be able to take pt pending precert. Cindy will start precert today. She will be in on the weekend to check on it. The bed will be available on Wednesday. Cindy will call the floor to let them know if precert is attained on the weekend and pt can come on the weekend. SW spoke w/pt in room, let him know the physician in rehab accepted him and they are starting precert with insurance. SW explained to pt that pt may be here through the weekend if the precert is still pending through the weekend. If precert is attained on the weekend, pt can go to rehab on Wednesday. SW explained if rehab is denied, SW will follow up w/him again on Wednesday regarding if pt can truly go home or if group home needs to be considered. Pt states understanding. Plan: Rehab, pending precert. Green sheet on chart in even precert is attained on the weekend. Otherwise, SW will follow up Wednesday and if pt's insurance denied rehab SW will follow up w/pt regarding plan, home w/home health and DME, or if pt will reconsider SNF. SATURNINO Antoine
[2020-06-14] MEDS: Albuterol 2.5 MG/3 ML VIAL.NEB. INHALATION (14:55)
--- NOTE | 2020-06-14 15:16 | PCM.PN.HOSP ---
Patient Problems: Active and Suspected Problems Intertrochanteric fracture (Acute) Reason for Visit: Follow-up for left hip fracture. Objective: No fever or chills. Heart rate and blood pressure is good. Had low-grade temperature T-max 99.5 Fahrenheit. Patient has mild chronic cough with history of smoking 2 packs/day. Mild shortness of breath and wheezing. Physical exam General: Alert, Oriented x3, Cooperative HEENT: Atraumatic, PERRLA, EOMI, Normocephalic Oral: No Gingival or Mucosal Lesions/ Ulcerations Neck: Supple, No JVD, Negative Carotid Bruits Lungs: Air entry diminished in bilateral lung bases. Mild bilateral expiratory rhonchi, right more than left. Cardiovascular: Regular rate, Regular Rhythm, Normal S1, Normal S2, No murmurs Abdomen: Bowel Sounds Present, Soft, Non Tender, Non-Distended : No renal angle tenderness. No suprapubic tenderness. Extremities: Left hip surgical dressing, mild soakage with serous drainage but mostly dry. No edema, Capillary Refill Less than 3 Seconds Skin: No rashes, No breakdown Musculoskeletal: Tenderness on the left hip operative region. Patient could not stand up on walker. No Tenderness to Palpation of other joints or Extremities Neurological: Cranial nerves II-XII grossly intact, Deep Tendon Reflexes 2+/4 and Symmetrical, Neuro grossly intact Psych/Mental Status: Normal Affect, Appropriate. Vitals/I&O's: Vital Signs Temp Pulse Resp BP Pulse Ox 98.1 F 89 18 109/56 L 98 06/14/20 14:18 06/14/20 14:18 06/14/20 14:18 06/14/20 14:18 06/14/20 14:18 Oxygen Flow Rate (L/min) 2 Oxygen Delivery Method Nasal Cannula Weight: 185 lb 3.013 oz Body Mass Index (BMI) 24.4 Intake and Output for Last 24 Hours 06/12/20 06/13/20 06/14/20 23:59 23:59 23:59 Intake Total 5443.33 / 5443.33 1063.33 / 1063.33 Output Total 1175 / 1175 750 / 750 Balance 4268.33 / 4268.33 313.33 / 313.33 Microbiology Past 72 Hours 06/12/20 15:35 Mucosa - Nose SARS-CoV-2 Antigen (Rapid) - Final Laboratory Results 06/13/20 15:36: WBC 12.9 H, RBC 3.64 L, Hgb 12.4 L, Hct 38.9 L, MCV 106.9 H, MCH 34.1 H, MCHC 31.9 L, RDW Std Deviation 52.6 H, RDW Coeff of Ena 13.1, Plt Count 241, MPV 9.6 06/13/20 15:36: Sodium 139, Potassium 4.3, Chloride 106, Carbon Dioxide 28.0, Anion Gap 5, BUN 12, Creatinine 0.90, Estim Creat Clear Calc 88.78, Est GFR (MDRD) Af Amer 108, Est GFR (MDRD) Non-Af 89, BUN/Creatinine Ratio 13.4, Glucose 131 H, Calcium 7.7 L 06/14/20 07:25: WBC 10.5, RBC 2.73 L, Hgb 9.4 L, Hct 28.7 L, MCV 105.1 H, MCH 34.4 H, MCHC 32.8, RDW Std Deviation 49.2 H, RDW Coeff of Ena 12.8, Plt Count 183, MPV 9.6 Current Medications Acetaminophen (Acetaminophen 325 Mg Tablet) 650 mg PO Q6H PRN PRN PRN Reason: Pain Score 1-10/Temp > 100.7 F Last Admin: 06/14/20 09:20 Dose: 650 mg Documented by: Acetaminophen/Codeine Phosphate (Acetaminophen/Codeine #3 Tablet) 1 - 2 tablet PO Q6H PRN PRN PRN Reason: Pain Score 1-3 Al Hydroxide/Mg Hydroxide (Mag Hydrox/Al Hydrox/Simeth 30 Ml Udc) 30 ml PO Q6H PRN PRN PRN Reason: Gastric Burning Albuterol Sulfate (Albuterol 2.5 Mg/3 Ml Vial.Neb.) 2.5 mg INHALATION Q2H PRN PRN PRN Reason: Dyspnea, wheezing Last Admin: 06/14/20 14:55 Dose: 2.5 mg Documented by: Albuterol/Ipratropium (Ipratropium/Albuterol Sulfate 3 Ml Ampul.Neb) 3 ml INHALATION Q6HWA.RT ROSA Atorvastatin Calcium (Atorvastatin Calcium 20 Mg Tablet) 20 mg PO QHS ROSA Last Admin: 06/13/20 21:37 Dose: 20 mg Documented by: Enoxaparin Sodium (Enoxaparin 40 Mg/0.4 Ml Syringe) 40 mg SC DAILY@0600 [facility] Last Admin: 06/14/20 06:20 Dose: 40 mg Documented by: Famotidine (Famotidine 20 Mg Tablet) 20 mg PO BID [facility] Last Admin: 06/14/20 09:20 Dose: 20 mg Documented by: Guaifenesin (Guaifenesin 10 Ml Udc (200mg/10ml)) 20 ml PO Q4H PRN PRN PRN Reason: COUGH Hydralazine HCl (Hydralazine 20 Mg/Ml Vial) 10 mg IV Q4H PRN PRN PRN Reason: SBP > 160 Hydromorphone HCl (Hydromorphone 0.5 Mg/0.5 Ml Syringe) 1 mg IV Q4H PRN PRN PRN Reason: Pain Score 6-10 Sodium Chloride () 250 mls @ 15 mls/hr IV .[id number] PRN PRN Reason: Saline Flush Sodium Chloride () 250 mls @ 15 mls/hr IV .[id number] PRN PRN Reason: Additional IVPB Infusion Magnesium Hydroxide (Magnesium Hydroxide 30 Ml Udc) 30 ml PO DAILY PRN PRN PRN Reason: Constipation Nicotine (Nicotine 14 Mg Patch) 14 mg TD DAILY PRN PRN Reason: Nicotine Craving Last Admin: 06/14/20 09:20 Dose: 14 mg Documented by: Ondansetron HCl (Ondansetron 4 Mg/2 Ml Vial) 4 mg IV Q8H PRN PRN PRN Reason: NAUSEA/VOMITING Oxycodone HCl (Oxycodone 5 Mg Tablet) 5 mg PO Q4H PRN PRN PRN Reason: Pain Score 4-5 Oxycodone HCl (Oxycodone 5 Mg Tablet) 10 mg PO Q4H PRN PRN PRN Reason: Pain Score 6-10 Last Admin: 06/14/20 13:56 Dose: 10 mg Documented by: Prochlorperazine Edisylate (Prochlorperazine 10 Mg/2 Ml Vial) 5 mg IV Q4H PRN PRN PRN Reason: Breakthrough nausea/vomiting Psyllium Hydrophilic Mucilloid (Psyllium 1 Packet) 1 packet PO DAILY PRN PRN PRN Reason: Constipation Senna/Docusate Sodium (Senna/Docusate Sodium 1 Tablet) 2 tablet PO BID PRN PRN PRN Reason: Constipation Last Admin: 06/14/20 09:20 Dose: 2 tablet Documented by: Sodium Chloride (0.9% Saline Lock 10 Ml Syringe) 10 - 40 ml IV UD PRN PRN Reason: SALINE FLUSH Last Admin: 06/13/20 11:56 Dose: 10 ml Documented by: Temazepam (Temazepam 15 Mg Capsule) 15 mg PO QHS PRN PRN PRN Reason: INSOMNIA Last Admin: 06/13/20 23:12 Dose: 15 mg Documented by: Throat Lozenges (Benzocaine/Menthol 1 Lozenge) 1 lozenge MUCOUS MEM Q2H PRN PRN PRN Reason: SORE THROAT STROKE Vital Signs/Narrative: Vital Signs Temp Pulse Resp BP Pulse Ox 06/14/20 14:18 98.1 F 89 18 109/56 L 98 Medical Necessity - Tobacco Use Smoking Status: Current every day smoker Tobacco Use: Non-smoker Assessment/Plan All Active Problems Intertrochanteric fracture (Acute) This is a 69-year-old gentleman with history of chronic cigarette smoking more than 40 packs came to ED with left hip pain after slip and fall and x-ray finding of left hip intertrochanteric fracture. 1. Acute angulated left intertrochanteric fracture mechanical fall -heart rate and blood pressure in normal range. Twelve-lead EKG normal sinus rhythm with no acute evidence of ischemia. Chest x-ray no acute cardiopulmonary findings. Clinically possibility of underlying undiagnosed COPD as patient has cough with sputum early in the morning after he wakes up. Does not willing to quit smoking. NSQIP perioperative low risk. Pain management, incentive spirometry, PT and OT. 06/14: Patient evaluated by PT. Patient could not bear weight on walker even on standing. Plan to discharge to SNF. Pre-CERT pending. Acute anemia of blood loss: Patient hemoglobin dropped from 12.4-9.4 after surgery. No active bleeding or left hip hematoma. No indication for blood transfusion product. Ferrous sulfate 325 mg daily. 2. Low urine output, oliguria: Patient had 125 mL dark-colored urine since 6 AM. Total urine output charted found 75 mils since admission. Ringer lactate 1000 mL bolus and 100 mils per hour. 06/14: Resolved. Patient had declined 75 mL output on 06/13 and 750 mL 06/14. BUN/creatinine normal. 3. Chronic cigarette smoking with possibility of underlying COPD: Advised outpatient PFT patient has declined. On nicotine patch. DuoNeb as needed. 04/14: Mild wheezing and shortness of breath. Bronchodilator ordered. Aggressive pulmonary hygiene with incentive spirometry and PEP 4 dyslipidemia: Statin. DVT ppx: Moderate to high risk based on the left hip fracture, chronic smoking: As per orthopedic surgeon discretion but prefer Lovenox 40 mg subcu daily for Eliquis 2.5 mg p.o. twice daily after surgery once bleeding risk is acceptable. DC planning: PTOT evals. Pt lives with . Previously without home needs Clinical Impression(s) from Imaging Studies Hip/Pelvis X-Ray 06/12/20 15:04 IMPRESSION: Acute angulated fracture of the intertrochanteric femur. Chest X-Ray 06/12/20 15:40 IMPRESSION: Normal x-ray examination of the chest. Electronically Signed: Bennett Rand MD at 16:01 EST Tel , Service support , Knee X-Ray 06/12/20 17:06 IMPRESSION: No demonstrated fracture in the distal femur or visualized proximal tibia. Medial compartment arthrosis Microbiology Past 72 Hours 06/12/20 15:35 Mucosa - Nose SARS-CoV-2 Antigen (Rapid) - Final Laboratory Results 06/13/20 15:36: WBC 12.9 H, RBC 3.64 L, Hgb 12.4 L, Hct 38.9 L, MCV 106.9 H, MCH 34.1 H, MCHC 31.9 L, RDW Std Deviation 52.6 H, RDW Coeff of Ena 13.1, Plt Count 241, MPV 9.6 06/13/20 15:36: Sodium 139, Potassium 4.3, Chloride 106, Carbon Dioxide 28.0, Anion Gap 5, BUN 12, Creatinine 0.90, Estim Creat Clear Calc 88.78, Est GFR (MDRD) Af Amer 108, Est GFR (MDRD) Non-Af 89, BUN/Creatinine Ratio 13.4, Glucose 131 H, Calcium 7.7 L 06/14/20 07:25: WBC 10.5, RBC 2.73 L, Hgb 9.4 L, Hct 28.7 L, MCV 105.1 H, MCH 34.4 H, MCHC 32.8, RDW Std Deviation 49.2 H, RDW Coeff of Ena 12.8, Plt Count 183, MPV 9.6 Inpatient E&M: 10336 Subs Hosp L2
[2020-06-14] MEDS: Ferrous Sulfate 325 MG Tablet PO (17:07)
--- NOTE | 2020-06-14 18:19 | NURSING ---
encouraged po intake/liquids post bladder scan- pt verbalizes understanding and is agreeable.
[2020-06-14] MEDS: Ipratropium/Albuterol Sulfate 3 ML AMPUL.NEB INHALATION (19:53)
[2020-06-14] MEDS: Tamsulosin HCl 0.4 MG Capsule PO (21:10)
[2020-06-14] MEDS: Atorvastatin Calcium 20 MG Tablet PO (21:10)
[2020-06-15] VITALS (7 sets, daily range): BP systolic 111–140; BP diastolic 43–68; PULSE 57–105; RESP 14–20; TEMP 36.7–37.6; O2SAT 92–99
[2020-06-15] MEDS: oxyCODONE 5 MG Tablet 10 MG PO ×4 (05:38→21:04)
[2020-06-15] MEDS: Enoxaparin 40 MG/0.4 ML Syringe SC (05:39)
[2020-06-15] MEDS: Ferrous Sulfate 325 MG Tablet PO (10:46)
[2020-06-15] MEDS: Famotidine 20 MG Tablet PO ×2 (10:46→19:54)
[2020-06-15 11:59] LABS: Absolute Lymphocyte Count 1.53 X10^3/uL (0.83-4.51); Absolute Neutrophil Count 5.7 X10^3/uL (2.0-7.7); Basophil# 0.04 X10^3/uL; Basophil% 0.4 % (0-1); Eosinophil# 0.12 X10^3/uL; Eosinophils% 1.3 % (0-5); Hematocrit 25.3 % (40-54); Hemoglobin 8.5 g/dL (13.0-16.5); Lymphocyte # 1.53 X10^3/ul (4.0); Lymphocyte % 16.6 % (19-41); Mean Corp Hgb Conc 33.6 g/dL (32-36); Mean Corpuscular Hgb 34.6 pg (27.0-32.0); Mean Corpuscular Volume 102.8 fL (80-94); Mean Platelet Vol. 9.7 fl (6.2-12.0); Monocyte# 1.75 X10^3/uL; NRBC Flagged by Analyzer 0 % (0-5); Neutrophil # 5.74 X10^3/uL (2.7-7.7); Neutrophil % 62.5 % (47-70); POSITIVE DIFFERENTIAL YES; Platelet Count 173 K/mm3 (150-450); RBC Distribution Width CV 12.4 % (11.6-14.6); Red Blood Count 2.46 M/mm3 (4.6-6.2); White Blood Count 9.2 K/mm3 (4.4-11.0)
[2020-06-15 12:00] LABS: Differential Indicated SCAN CRITERIA MET
[2020-06-15 12:48] LABS: Hypochromasia 1+; Platelet Estimate ADEQUATE (ADEQ)
--- NOTE | 2020-06-15 14:08 | PN_ITS ---
Patient Problems: Active and Suspected Problems Intertrochanteric fracture (Acute) Reason for Visit: Patient is to complain of pain on the left hip and could not stand up or do much walking but said he does not want to go to alf. Heart rate and blood pressure are good. Physical exam General: Alert, Oriented x3, Cooperative HEENT: Atraumatic, PERRLA, EOMI, Normocephalic Oral: No Gingival or Mucosal Lesions/ Ulcerations Neck: Supple, No JVD, Negative Carotid Bruits Lungs: Air entry diminished in bilateral lungs. Mild expiratory rhonchi present. No tachypnea. On 1 to 2 L of oxygen. Cardiovascular: Regular rate, Regular Rhythm, Normal S1, Normal S2, No murmurs Abdomen: Bowel Sounds Present, Soft, Non Tender, Non-Distended : No renal angle tenderness. No suprapubic tenderness. Extremities: No edema, Capillary Refill Less than 3 Seconds Skin: No rashes, No breakdown Musculoskeletal: Mild expected tenderness around left hip. Surgical dressing is dry. ROM restricted. Neurological: Cranial nerves II-XII grossly intact, Deep Tendon Reflexes 2+/4 and Symmetrical, Neuro grossly intact Psych/Mental Status: Normal Affect, Appropriate. Vitals/I&O's: Vital Signs Temp Pulse Resp BP Pulse Ox 98.1 F 100 14 113/48 L 94 06/15/20 09:55 06/15/20 09:55 06/15/20 09:55 06/15/20 09:55 06/15/20 09:55 Oxygen Flow Rate (L/min) 1 Oxygen Delivery Method Nasal Cannula Weight: 185 lb 3.013 oz Body Mass Index (BMI) 24.4 Intake and Output for Last 24 Hours 06/13/20 06/14/20 06/15/20 23:59 23:59 23:59 Intake Total 5443.33 / 5443.33 1063.33 / 1063.33 Output Total 1175 / 1175 1600 / 1600 300 / 300 Balance 4268.33 / 4268.33 -536.67 / -536.67 -300 / -300 Microbiology Past 72 Hours 06/12/20 15:35 Mucosa - Nose SARS-CoV-2 Antigen (Rapid) - Final Laboratory Results 06/15/20 11:40: WBC 9.2, RBC 2.46 L, Hgb 8.5 L, Hct 25.3 L, MCV 102.8 H, MCH 34.6 H, MCHC 33.6, RDW Std Deviation 47.0 H, RDW Coeff of Ena 12.4, Plt Count 173, MPV 9.7, Immature Gran % (Auto) 0.200, Neut % (Auto) 62.5, Lymph % (Auto) 16.6 L, Sweet Grass % (Auto) 19.0 H, Eos % (Auto) 1.3, Baso % (Auto) 0.4, Absolute Neuts (auto) 5.7, Absolute Lymphs (auto) 1.53, Nucleated RBC % 0, Platelet Estimate ADEQUATE, Hypochromasia 1+ Current Medications Acetaminophen (Acetaminophen 325 Mg Tablet) 650 mg PO Q6H PRN PRN PRN Reason: Pain Score 1-10/Temp > 100.7 F Last Admin: 06/14/20 18:15 Dose: 650 mg Documented by: Acetaminophen/Codeine Phosphate (Acetaminophen/Codeine #3 Tablet) 1 - 2 tablet PO Q6H PRN PRN PRN Reason: Pain Score 1-3 Al Hydroxide/Mg Hydroxide (Mag Hydrox/Al Hydrox/Simeth 30 Ml Udc) 30 ml PO Q6H PRN PRN PRN Reason: Gastric Burning Albuterol Sulfate (Albuterol 2.5 Mg/3 Ml Vial.Neb.) 2.5 mg INHALATION Q2H PRN PRN PRN Reason: Dyspnea, wheezing Last Admin: 06/14/20 14:55 Dose: 2.5 mg Documented by: Albuterol/Ipratropium (Ipratropium/Albuterol Sulfate 3 Ml Ampul.Neb) 3 ml INHALATION Q6HWA.RT [facility] Last Admin: 06/14/20 19:53 Dose: 3 ml Documented by: Atorvastatin Calcium (Atorvastatin Calcium 20 Mg Tablet) 20 mg PO QHS [facility] Last Admin: 06/14/20 21:10 Dose: 20 mg Documented by: Enoxaparin Sodium (Enoxaparin 40 Mg/0.4 Ml Syringe) 40 mg SC DAILY@0600 [facility] Last Admin: 06/15/20 05:39 Dose: 40 mg Documented by: Famotidine (Famotidine 20 Mg Tablet) 20 mg PO BID [facility] Last Admin: 06/15/20 10:46 Dose: 20 mg Documented by: Ferrous Sulfate (Ferrous Sulfate 325 Mg Tablet) 325 mg PO DAILY@1200 [facility] Last Admin: 06/15/20 10:46 Dose: 325 mg Documented by: Guaifenesin (Guaifenesin 10 Ml Udc (200mg/10ml)) 20 ml PO Q4H PRN PRN PRN Reason: COUGH Hydralazine HCl (Hydralazine 20 Mg/Ml Vial) 10 mg IV Q4H PRN PRN PRN Reason: SBP > 160 Hydromorphone HCl (Hydromorphone 0.5 Mg/0.5 Ml Syringe) 1 mg IV Q4H PRN PRN PRN Reason: Pain Score 6-10 Sodium Chloride () 250 mls @ 15 mls/hr IV .[id number] PRN PRN Reason: Saline Flush Sodium Chloride () 250 mls @ 15 mls/hr IV .[id number] PRN PRN Reason: Additional IVPB Infusion Magnesium Hydroxide (Magnesium Hydroxide 30 Ml Udc) 30 ml PO DAILY PRN PRN PRN Reason: Constipation Nicotine (Nicotine 14 Mg Patch) 14 mg TD DAILY PRN PRN Reason: Nicotine Craving Last Admin: 06/15/20 10:46 Dose: 14 mg Documented by: Ondansetron HCl (Ondansetron 4 Mg/2 Ml Vial) 4 mg IV Q8H PRN PRN PRN Reason: NAUSEA/VOMITING Oxycodone HCl (Oxycodone 5 Mg Tablet) 5 mg PO Q4H PRN PRN PRN Reason: Pain Score 4-5 Oxycodone HCl (Oxycodone 5 Mg Tablet) 10 mg PO Q4H PRN PRN PRN Reason: Pain Score 6-10 Last Admin: 06/15/20 10:46 Dose: 10 mg Documented by: Prochlorperazine Edisylate (Prochlorperazine 10 Mg/2 Ml Vial) 5 mg IV Q4H PRN PRN PRN Reason: Breakthrough nausea/vomiting Psyllium Hydrophilic Mucilloid (Psyllium 1 Packet) 1 packet PO DAILY PRN PRN PRN Reason: Constipation Senna/Docusate Sodium (Senna/Docusate Sodium 1 Tablet) 2 tablet PO BID PRN PRN PRN Reason: Constipation Last Admin: 06/14/20 09:20 Dose: 2 tablet Documented by: Sodium Chloride (0.9% Saline Lock 10 Ml Syringe) 10 - 40 ml IV UD PRN PRN Reason: SALINE FLUSH Last Admin: 06/13/20 11:56 Dose: 10 ml Documented by: Tamsulosin HCl (Tamsulosin Hcl 0.4 Mg Capsule) 0.4 mg PO DAILY@1730 [facility] Last Admin: 06/14/20 21:10 Dose: 0.4 mg Documented by: Temazepam (Temazepam 15 Mg Capsule) 15 mg PO QHS PRN PRN PRN Reason: INSOMNIA Last Admin: 06/13/20 23:12 Dose: 15 mg Documented by: Throat Lozenges (Benzocaine/Menthol 1 Lozenge) 1 lozenge MUCOUS MEM Q2H PRN PRN PRN Reason: SORE THROAT Medical Necessity - Tobacco Use Smoking Status: Current every day smoker Tobacco Use: Non-smoker Assessment/Plan All Active Problems Intertrochanteric fracture (Acute) This is a 69-year-old gentleman with history of chronic cigarette smoking more than 40 packs came to ED with left hip pain after slip and fall and x-ray finding of left hip intertrochanteric fracture. 1. Acute angulated left intertrochanteric fracture mechanical fall -heart rate and blood pressure in normal range. Twelve-lead EKG normal sinus rhythm with no acute evidence of ischemia. Chest x-ray no acute cardiopulmonary findings. Clinically possibility of underlying undiagnosed COPD as patient has cough with sputum early in the morning after he wakes up. Does not willing to quit smoking. NSQIP perioperative low risk. Pain management, incentive spirometry, PT and OT. 06/14: Patient evaluated by PT. Patient could not bear weight on walker even on standing. Plan to discharge to SNF. Pre-CERT pending. 06/15 continue PT and OT. associate program manager working on it. Acute anemia of blood loss: Patient hemoglobin dropped from 12.4-9.4 after surgery. No active bleeding or left hip hematoma. No indication for blood transfusion product. Ferrous sulfate 325 mg daily. 06/15: Hemoglobin further dropped to 8.5. 200 mg IV Venofer ordered. 2. Low urine output, oliguria: Patient had 125 mL dark-colored urine since 6 AM. Total urine output charted found 75 mils since admission. Ringer lactate 1000 mL bolus and 100 mils per hour. 06/14: Resolved. Patient had declined 75 mL output on 06/13 and 750 mL 06/14. BUN/creatinine normal. 06/15: Urine output was 1300 mL on 06/14 3. Chronic cigarette smoking with possibility of underlying COPD: Advised outpatient PFT patient has declined. On nicotine patch. DuoNeb as needed. 06/14: Mild wheezing and shortness of breath. Scheduled bronchodilator ordered. Aggressive pulmonary hygiene with incentive spirometry and PEP 06/15: Continue bronchodilator and above treatment. Does not seem to be acute exacerbation 4 dyslipidemia: Statin. DVT ppx: Moderate to high risk based on the left hip fracture, chronic smoking: As per orthopedic surgeon discretion but prefer Lovenox 40 mg subcu daily for Eliquis 2.5 mg p.o. twice daily after surgery once bleeding risk is acceptable. DC planning: PTOT evals. Pt lives with . Previously without home needs Microbiology Past 72 Hours 06/12/20 15:35 Mucosa - Nose SARS-CoV-2 Antigen (Rapid) - Final Laboratory Results 06/15/20 11:40: WBC 9.2, RBC 2.46 L, Hgb 8.5 L, Hct 25.3 L, MCV 102.8 H, MCH 34.6 H, MCHC 33.6, RDW Std Deviation 47.0 H, RDW Coeff of Ena 12.4, Plt Count 173, MPV 9.7, Immature Gran % (Auto) 0.200, Neut % (Auto) 62.5, Lymph % (Auto) 16.6 L, Sweet [place] % (Auto) 19.0 H, Eos % (Auto) 1.3, Baso % (Auto) 0.4, Absolute Neuts (auto) 5.7, Absolute Lymphs (auto) 1.53, Nucleated RBC % 0, Platelet Estimate ADEQUATE, Hypochromasia 1+ Clinical Impression(s) from Imaging Studies Hip/Pelvis X-Ray 06/12/20 15:04 IMPRESSION: Acute angulated fracture of the intertrochanteric femur. Chest X-Ray 06/12/20 15:40 IMPRESSION: Normal x-ray examination of the chest. Electronically Signed: Bennett Rand MD at 16:01 EST Tel , Service support , Knee X-Ray 06/12/20 17:06 IMPRESSION: No demonstrated fracture in the distal femur or visualized proximal tibia. Medial compartment arthrosis Inpatient E&M: [id number] Subs Hosp L2
[2020-06-15 14:53] LABS: Platelet Count 178 K/mm3 (150-450); Reticulocyte Count 1.98 % (0.5-1.5)
[2020-06-15] MEDS: Sodium Ferric Gluconat 250 MG in 0.9% Normal Saline 250 ML 135 MG IV (16:11)
[2020-06-15] MEDS: 0.9% Saline Lock 10 ML Syringe IV ×2 (16:11→21:04)
[2020-06-15] MEDS: Tamsulosin HCl 0.4 MG Capsule PO (16:12)
[2020-06-15] MEDS: Ipratropium/Albuterol Sulfate 3 ML AMPUL.NEB INHALATION (18:55)
[2020-06-15] MEDS: Acetaminophen 325 MG Tablet 650 MG PO (19:54)
[2020-06-15] MEDS: Atorvastatin Calcium 20 MG Tablet PO (19:54)
[2020-06-16] VITALS (8 sets, daily range): BP systolic 106–133; BP diastolic 55–68; PULSE 72–101; RESP 14–18; TEMP 36.8–37.2; O2SAT 90–96
[2020-06-16] MEDS: Enoxaparin 40 MG/0.4 ML Syringe SC (06:26)
[2020-06-16 07:28] LABS: Absolute Lymphocyte Count 1.39 X10^3/uL (0.83-4.51); Absolute Neutrophil Count 6.3 X10^3/uL (2.0-7.7); Basophil# 0.04 X10^3/uL; Basophil% 0.4 % (0-1); Differential Indicated SCAN CRITERIA MET; Eosinophil# 0.18 X10^3/uL; Eosinophils% 1.9 % (0-5); Hematocrit 25.9 % (40-54); Hemoglobin 8.7 g/dL (13.0-16.5); Lymphocyte # 1.39 X10^3/ul (4.0); Lymphocyte % 14.4 % (19-41); Mean Corp Hgb Conc 33.6 g/dL (32-36); Mean Corpuscular Hgb 34.3 pg (27.0-32.0); Mean Platelet Vol. 10.4 fl (6.2-12.0); Monocyte# 1.65 X10^3/uL; Monocyte% 17.2 % (0-10); NRBC Flagged by Analyzer 0 % (0-5); Neutrophil # 6.32 X10^3/uL (2.7-7.7); Neutrophil % 65.7 % (47-70); POSITIVE DIFFERENTIAL YES; Platelet Count 209 K/mm3 (150-450); RBC Distribution Width CV 12.7 % (11.6-14.6); RBC Distribution Width SD 47.3 fl (35.1-43.9); Red Blood Count 2.54 M/mm3 (4.6-6.2); White Blood Count 9.6 K/mm3 (4.4-11.0)
--- NOTE | 2020-06-16 07:28 | PCM.PN.HOSP ---
Patient Problems: Active and Suspected Problems Intertrochanteric fracture (Acute) Objective: Heart rate and blood pressure are controlled in normal range. Patient complain of pain in the left posterior medial thigh. Patient still has significant pain with the left hip Physical exam General: Alert, Oriented x3, Cooperative HEENT: Atraumatic, PERRLA, EOMI, Normocephalic Oral: No Gingival or Mucosal Lesions/ Ulcerations Neck: Supple, No JVD, Negative Carotid Bruits Lungs: Air entry diminished in bilateral lungs. Mild expiratory rhonchi present. No tachypnea. On 1 to 2 L of oxygen. Cardiovascular: Regular rate, Regular Rhythm, Normal S1, Normal S2, No murmurs Abdomen: Bowel Sounds Present, Soft, Non Tender, Non-Distended : No renal angle tenderness. No suprapubic tenderness. Extremities: No erythema, induration or swelling palpable lump posterior medial left thigh. No edema, Capillary Refill Less than 3 Seconds Skin: No rashes, No breakdown Musculoskeletal: Mild expected tenderness around left hip point. Surgical dressing is dry. ROM restricted. Neurological: Cranial nerves II-XII grossly intact, Deep Tendon Reflexes 2+/4 and Symmetrical, Neuro grossly intact Psych/Mental Status: Normal Affect, Appropriate. Vitals/I&O's: Vital Signs Temp Pulse Resp BP Pulse Ox 98.8 F 101 H 16 116/55 L 92 06/16/20 02:05 06/16/20 02:05 06/16/20 02:05 06/16/20 02:05 06/16/20 02:05 Oxygen Flow Rate (L/min) 1 Oxygen Delivery Method Room Air Weight: 185 lb 3.013 oz Body Mass Index (BMI) 24.4 Intake and Output for Last 24 Hours 06/14/20 06/15/20 06/16/20 23:59 23:59 23:59 Intake Total 1063.33 / 1063.33 670.25 / 670.25 150 / 150 Output Total 1600 / 1600 1000 / 1000 200 / 200 Balance -536.67 / -536.67 -329.75 / -329.75 -50 / -50 Laboratory Results 06/15/20 11:40: WBC 9.2, RBC 2.46 L, Hgb 8.5 L, Hct 25.3 L, MCV 102.8 H, MCH 34.6 H, MCHC 33.6, RDW Std Deviation 47.0 H, RDW Coeff of Ena 12.4, Plt Count 173, MPV 9.7, Immature Gran % (Auto) 0.200, Neut % (Auto) 62.5, Lymph % (Auto) 16.6 L, Toole % (Auto) 19.0 H, Eos % (Auto) 1.3, Baso % (Auto) 0.4, Absolute Neuts (auto) 5.7, Absolute Lymphs (auto) 1.53, Nucleated RBC % 0, Platelet Estimate ADEQUATE, Hypochromasia 1+ 06/15/20 11:40: Retic Count 1.98 H, Immature Retic Fraction 14.50, Retic Hgb Equivalent 37.0 H 06/16/20 06:21: WBC Pending, RBC Pending, Hgb Pending, Hct Pending, MCV Pending, MCH Pending, MCHC Pending, RDW Std Deviation Pending, RDW Coeff of Ena Pending, Plt Count Pending, Neut % (Auto) Pending, Absolute Neuts (auto) Pending 06/16/20 06:21: Sodium Pending, Potassium Pending, Chloride Pending, Carbon Dioxide Pending, Anion Gap Pending, BUN Pending, Creatinine Pending, Est GFR (MDRD) Af Amer Pending, Est GFR (MDRD) Non-Af Pending, BUN/Creatinine Ratio Pending, Glucose Pending, Calcium Pending Current Medications Acetaminophen (Acetaminophen 325 Mg Tablet) 650 mg PO Q6H PRN PRN PRN Reason: Pain Score 1-10/Temp > 100.7 F Last Admin: 06/15/20 19:54 Dose: 650 mg Documented by: Acetaminophen/Codeine Phosphate (Acetaminophen/Codeine #3 Tablet) 1 - 2 tablet PO Q6H PRN PRN PRN Reason: Pain Score 1-3 Al Hydroxide/Mg Hydroxide (Mag Hydrox/Al Hydrox/Simeth 30 Ml Udc) 30 ml PO Q6H PRN PRN PRN Reason: Gastric Burning Albuterol Sulfate (Albuterol 2.5 Mg/3 Ml Vial.Neb.) 2.5 mg INHALATION Q2H PRN PRN PRN Reason: Dyspnea, wheezing Last Admin: 06/14/20 14:55 Dose: 2.5 mg Documented by: Albuterol/Ipratropium (Ipratropium/Albuterol Sulfate 3 Ml Ampul.Neb) 3 ml INHALATION Q6HWA.RT [facility] Last Admin: 06/15/20 18:55 Dose: 3 ml Documented by: Atorvastatin Calcium (Atorvastatin Calcium 20 Mg Tablet) 20 mg PO QHS [facility] Last Admin: 06/15/20 19:54 Dose: 20 mg Documented by: Enoxaparin Sodium (Enoxaparin 40 Mg/0.4 Ml Syringe) 40 mg SC DAILY@0600 [facility] Last Admin: 06/16/20 06:26 Dose: 40 mg Documented by: Famotidine (Famotidine 20 Mg Tablet) 20 mg PO BID [facility] Last Admin: 06/15/20 19:54 Dose: 20 mg Documented by: Ferrous Sulfate (Ferrous Sulfate 325 Mg Tablet) 325 mg PO DAILY@1200 [facility] Last Admin: 06/15/20 10:46 Dose: 325 mg Documented by: Guaifenesin (Guaifenesin 10 Ml Udc (200mg/10ml)) 20 ml PO Q4H PRN PRN PRN Reason: COUGH Hydralazine HCl (Hydralazine 20 Mg/Ml Vial) 10 mg IV Q4H PRN PRN PRN Reason: SBP > 160 Sodium Chloride () 250 mls @ 15 mls/hr IV .[id number] PRN PRN Reason: Saline Flush Last Infusion: 06/15/20 18:11 Dose: 15 mls/hr Documented by: Sodium Chloride () 250 mls @ 15 mls/hr IV .[id number] PRN PRN Reason: Additional IVPB Infusion Magnesium Hydroxide (Magnesium Hydroxide 30 Ml Udc) 30 ml PO DAILY PRN PRN PRN Reason: Constipation Nicotine (Nicotine 14 Mg Patch) 14 mg TD DAILY PRN PRN Reason: Nicotine Craving Last Admin: 06/15/20 10:46 Dose: 14 mg Documented by: Ondansetron HCl (Ondansetron 4 Mg/2 Ml Vial) 4 mg IV Q8H PRN PRN PRN Reason: NAUSEA/VOMITING Oxycodone HCl (Oxycodone 5 Mg Tablet) 5 mg PO Q4H PRN PRN PRN Reason: Pain Score 4-5 Oxycodone HCl (Oxycodone 5 Mg Tablet) 10 mg PO Q4H PRN PRN PRN Reason: Pain Score 6-10 Last Admin: 06/15/20 21:04 Dose: 10 mg Documented by: Prochlorperazine Edisylate (Prochlorperazine 10 Mg/2 Ml Vial) 5 mg IV Q4H PRN PRN PRN Reason: Breakthrough nausea/vomiting Psyllium Hydrophilic Mucilloid (Psyllium 1 Packet) 1 packet PO DAILY PRN PRN PRN Reason: Constipation Senna/Docusate Sodium (Senna/Docusate Sodium 1 Tablet) 2 tablet PO BID PRN PRN PRN Reason: Constipation Last Admin: 06/14/20 09:20 Dose: 2 tablet Documented by: Sodium Chloride (0.9% Saline Lock 10 Ml Syringe) 10 - 40 ml IV UD PRN PRN Reason: SALINE FLUSH Last Admin: 06/15/20 21:04 Dose: 20 ml Documented by: Tamsulosin HCl (Tamsulosin Hcl 0.4 Mg Capsule) 0.4 mg PO DAILY@1730 [facility] Last Admin: 06/15/20 16:12 Dose: 0.4 mg Documented by: Temazepam (Temazepam 15 Mg Capsule) 15 mg PO QHS PRN PRN PRN Reason: INSOMNIA Last Admin: 06/13/20 23:12 Dose: 15 mg Documented by: Throat Lozenges (Benzocaine/Menthol 1 Lozenge) 1 lozenge MUCOUS MEM Q2H PRN PRN PRN Reason: SORE THROAT Medical Necessity - Tobacco Use Smoking Status: Current every day smoker Tobacco Use: Non-smoker Assessment/Plan All Active Problems Intertrochanteric fracture (Acute) This is a 69-year-old gentleman with history of chronic cigarette smoking more than 40 packs came to ED with left hip pain after slip and fall and x-ray finding of left hip intertrochanteric fracture. 1. Acute angulated left intertrochanteric fracture mechanical fall -heart rate and blood pressure in normal range. Twelve-lead EKG normal sinus rhythm with no acute evidence of ischemia. Chest x-ray no acute cardiopulmonary findings. Clinically possibility of underlying undiagnosed COPD as patient has cough with sputum early in the morning after he wakes up. Does not willing to quit smoking. NSQIP perioperative low risk. Pain management, incentive spirometry, PT and OT. 06/14: Patient evaluated by PT. Patient could not bear weight on walker even on standing. Plan to discharge to SNF. Pre-CERT pending. 06/15 continue PT and OT. research laboratory manager working on it. 06/16: Continue incentive spirometry. Acute anemia of blood loss: Patient hemoglobin dropped from 12.4-9.4 after surgery. No active bleeding or left hip hematoma. No indication for blood transfusion product. Ferrous sulfate 325 mg daily. GERD continue normal. 06/15: Hemoglobin further dropped to 8.5. 200 mg IV Venofer ordered. 06/16: Reticulocyte count is 1.98 high suggestive of good marrow response. H&H responded well with IV Venofer. H&H 8.01/20. Lovenox changed to Eliquis. Venous duplex of lower extremities ordered for tomorrow a.m. 2. Low urine output, oliguria: Patient had 125 mL dark-colored urine since 6 AM. Total urine output charted found 75 mils since admission. Ringer lactate 1000 mL bolus and 100 mils per hour. 06/14: Resolved. Patient had declined 75 mL output on 06/13 and 750 mL 06/14. BUN/creatinine normal. 06/15: Urine output was 1300 mL on 06/14 3. Chronic cigarette smoking with possibility of underlying COPD: Advised outpatient PFT patient has declined. On nicotine patch. DuoNeb as needed. 06/14: Mild wheezing and shortness of breath. Scheduled bronchodilator ordered. Aggressive pulmonary hygiene with incentive spirometry and PEP 06/15: Continue bronchodilator and above treatment. Does not seem to be acute exacerbation 4 dyslipidemia: Statin. DVT ppx: Moderate to high risk based on the left hip fracture, chronic smoking: As per orthopedic surgeon discretion but prefer Lovenox 40 mg subcu daily for Eliquis 2.5 mg p.o. twice daily after surgery once bleeding risk is acceptable. DC planning: PTOT evals. PT recommended SNF placement. Pre-CERT pending. Patient not eager to go to residential. Follow-up venous duplex of lower extremity as patient complained of pain over distal left posterior medial thigh Laboratory Results 06/15/20 11:40: WBC 9.2, RBC 2.46 L, Hgb 8.5 L, Hct 25.3 L, MCV 102.8 H, MCH 34.6 H, MCHC 33.6, RDW Std Deviation 47.0 H, RDW Coeff of Ena 12.4, Plt Count 173, MPV 9.7, Immature Gran % (Auto) 0.200, Neut % (Auto) 62.5, Lymph % (Auto) 16.6 L, Toole % (Auto) 19.0 H, Eos % (Auto) 1.3, Baso % (Auto) 0.4, Absolute Neuts (auto) 5.7, Absolute Lymphs (auto) 1.53, Nucleated RBC % 0, Platelet Estimate ADEQUATE, Hypochromasia 1+ 06/15/20 11:40: Retic Count 1.98 H, Immature Retic Fraction 14.50, Retic Hgb Equivalent 37.0 H 06/16/20 06:21: WBC 9.6, RBC 2.54 L, Hgb 8.7 L, Hct 25.9 L, MCV 102.0 H, MCH 34.3 H, MCHC 33.6, RDW Std Deviation 47.3 H, RDW Coeff of Ena 12.7, Plt Count 209, MPV 10.4, Immature Gran % (Auto) 0.400, Neut % (Auto) 65.7, Lymph % (Auto) 14.4 L, Toole % (Auto) 17.2 H, Eos % (Auto) 1.9, Baso % (Auto) 0.4, Absolute Neuts (auto) 6.3, Absolute Lymphs (auto) 1.39, Nucleated RBC % 0, Platelet Estimate ADEQUATE, Polychromasia RARE, Hypochromasia 2+ 06/16/20 06:21: Sodium 139, Potassium 3.5, Chloride 104, Carbon Dioxide 29.0, Anion Gap 6, BUN 9, Creatinine 0.60 L, Estim Creat Clear Calc 79.90, Est GFR (MDRD) Af Amer 173, Est GFR (MDRD) Non-Af 143, BUN/Creatinine Ratio 15.1, Glucose 110 H, Calcium 7.9 L Clinical Impression(s) from Imaging Studies Hip/Pelvis X-Ray 06/12/20 15:04 IMPRESSION: Acute angulated fracture of the intertrochanteric femur. Chest X-Ray 06/12/20 15:40 IMPRESSION: Normal x-ray examination of the chest. Electronically Signed: Bennett Rand MD at 16:01 EST Tel , Service support , Knee X-Ray 06/12/20 17:06 IMPRESSION: No demonstrated fracture in the distal femur or visualized proximal tibia. Medial compartment arthrosis Inpatient E&M: 02590 Subs Hosp L2
[2020-06-16 07:50] LABS: Anion Gap 6 (5-15); BUN 9 mg/dL (7-18); BUN/Creat Ratio 15.1 RATIO (10-20); Calcium,Total 7.9 mg/dL (8.5-10.1); Chloride 104 mmol/L (98-107); EST Glomerular Filtration Rate 143 mL/min (>60); Est Glom Filt Rate - Afr Amer 173 mL/min (>60); Glucose 110 mg/dL (74-106); Potassium 3.5 mmol/L (3.5-5.1); Sodium Level 139 mmol/L (136-145)
[2020-06-16 08:10] LABS: Hypochromasia 2+; Platelet Estimate ADEQUATE (ADEQ); Polychromasia RARE
[2020-06-16] MEDS: Famotidine 20 MG Tablet PO ×2 (08:14→21:51)
[2020-06-16] MEDS: oxyCODONE 5 MG Tablet 10 MG PO ×2 (09:01→21:51)
--- NOTE | 2020-06-16 10:02 | NURSING ---
PT TELLING THIS NURSE THAT HE GOT HIM SELF OUT OF BED AND INTO THE CHAIR LAST NIGHT AND THEN BACK TO BED. I TOLD HIM THAT IS WHY WE HAVE THE TATTLE TAIL (BED ALARM/CHAIR ALARM) ON HIM. HE SAID HE WAS UP AFTER THAT?!. I REMINDED HIM THAT HE SHOULD NOT GET UP ON HIS OWN INCASE HE LOSES HIS BALANCE OR ANYTHING BECAUSE HE HAD SAID IF IM GOING TO BE GETTING UP, I NEED TO LEARN TO DO IT ON MY OWN HE THEN SAID YOU REMEMBER WHAT I TOLD YOU YESTERDAY (GIGGLING). I SAID ABOUT SUEING?, WELL MY THOUGHT IS, YOU ARE A GROWN MAN AND ALERT AND ORIENTED. PT GIGGLED AND SAID I WOULD NEVER DO THAT YESTERDAY AFTER PT BECAME UPSET FOR BEING LEFT UP IN THE CHAIR AFTER THERAPY SAYING YOU CANT LEAVE AN INJURED PERSON UP ALONE AND THEY (THERAPY) SAID I COULDNT GET UP WITHOUT THEM. I EXPLAINED TO PT THAT WE CANNOT REMAIN IN THE ROOM WITH EVERY PT THE ENTIRE TIME THEY ARE UP IN A CHAIR, HE REPLIED WELL I WILL GET UP AND IF I FALL, I WILL LUCIANA. I THEN EXPLAINED THAT THERAPY DOES NOT REMAIN WITH THE PT AT ALL TIMES EITHER AND THAT WHAT THEY MEANT WAS THAT HE SHOULD NOT GET UP ALONE.
[2020-06-16] MEDS: Ferrous Sulfate 325 MG Tablet PO (10:47)
[2020-06-16] MEDS: Ipratropium/Albuterol Sulfate 3 ML AMPUL.NEB INHALATION ×2 (13:08→18:30)
[2020-06-16] MEDS: oxyCODONE 5 MG Tablet PO (14:08)
[2020-06-16] MEDS: Tamsulosin HCl 0.4 MG Capsule PO (17:21)
[2020-06-16] MEDS: Senna/Docusate Sodium 1 Tablet 2 TABLET PO (21:50)
[2020-06-16] MEDS: Atorvastatin Calcium 20 MG Tablet PO (21:51)
[2020-06-17 03:10] VITALS: BP 111/49; PULSE 99; RESP 18; TEMP 36.7; O2SAT 92
--- NOTE | 2020-06-17 05:55 | VDLE_ITS ---
Reason For Study: LLE pain (medial thigh) RIGHT LEFT GSV is normal. GSV is normal. CFV is compressible, spontaneous, phasic, CFV is compressible, spontaneous, phasic, competent and demonstrates normal competent, and demonstrates normal augmentation. augmentation. FV is compressible, spontaneous, phasic, FV is compressible, spontaneous, phasic, competent and demonstrates normal competent and demonstrates normal augmentation. augmentation. T/P Trunk is compressible. T/P Trunk is compressible. PTV is compressible. PTV is compressible. RT PerV is compressible. LT PerV is compressible. POP V is dialted, compressible and POP V is dialted, compressible and demonstrates rouleaux flow. demonstrates rouleaux flow. Procedure This is a venous duplex using B-mode, color flow and spectral Doppler. Exam performed portable in patient room. The exam was diagnostic. A preliminary report was called and/or faxed to [facility]. Interpretation Summary No evidence for acute deep venous thrombosis bilateral lower extremities with patent and compressible bilateral great saphenous veins. Bilateral popliteal veins are mildly dilated and demonstrate sluggish flow. Thrombosis is yet not identified. Ordering Physician: Benjamin Chisholm Referring Physician: Inocencio Black Performed By: Tequila Mcbride, MIKE, RVT
[2020-06-17 07:20] VITALS: PULSE 97; RESP 18
[2020-06-17] MEDS: APIXABAN 2.5 MG TABLET PO ×3 (07:59→20:22)
[2020-06-17 08:01] VITALS: BP 123/54; PULSE 99; RESP 18; TEMP 36.8; O2SAT 93
[2020-06-17] MEDS: oxyCODONE 5 MG Tablet 10 MG PO ×2 (09:37→18:39)
[2020-06-17] MEDS: Famotidine 20 MG Tablet PO ×2 (09:37→20:22)
--- NOTE | 2020-06-17 09:54 | CASEMGMT ---
Addendum entered by Stephanie Casey 06/17/20 15:16: SW received call from Cindy in [place] stating pt was denied. Cindy states [employer] is requesting to speak to this SW to let this worker know about the denial. Phone number [phone]. Cindy states TCU would have a bed available for pt if pt is agreeable. MUSA placed a call to [employer] number and spoke with Crista. Crista confirms pt was denied, states denial letter will be faxed and requests denial letter be given to pt if pt is still at [facility]. Crista states peer to peer can be completed for [facility]. SW in to speak with pt. SW introduced self and role at [facility]. Pt is alert and orientated. SW updated pt that [facility] has been denied, but [facility] does have a bed available if pt were to be agreeable to [facility]. SW discussed differences between [facility] and [facility]. Pt agreeable to [facility]. SW explained that pre-cert will need to be resubmitted again, likely will not get decision today. Pt then called his Cinthya and asked this worker to update her. SW introduced self and role to Cinthya. SW updated Cinthya on denial to [facility] and educated Cinthya on [facility]. Cinthya also agreeable to [facility]. SW updated pt this worker will be back in once this worker hears from insurance again regarding pre-cert. Pt states understanding. SW did educate pt on peer to peer process. MUSA placed a call to Cindy in TCU and updated her that pt is agreeable to [facility]. Cindy states she will submit for pre-cert. Physician updated. Plan: TCU pending pre-cert Original Note: Social Work Note MUSA spoke with Cindy in [place], pre-cert is still pending. MUSA updated Cindy pt is medically cleared for discharge once pre-cert is obtained. Plan: [facility] pending pre-cert Stephanie Casey TAPE EDITOR, PARTNER INTEGRATION PLANNER
[2020-06-17] MEDS: Ferrous Sulfate 325 MG Tablet PO (12:54)
[2020-06-17] MEDS: Senna/Docusate Sodium 1 Tablet 2 TABLET PO ×2 (12:57→20:22)
[2020-06-17] MEDS: oxyCODONE 5 MG Tablet PO (12:57)
[2020-06-17] MEDS: Psyllium 1 PACKET PO (12:58)
[2020-06-17 13:36] VITALS: PULSE 81; RESP 18
[2020-06-17] MEDS: Ipratropium/Albuterol Sulfate 3 ML AMPUL.NEB INHALATION ×2 (13:36→19:23)
[2020-06-17] MEDS: Tamsulosin HCl 0.4 MG Capsule PO (17:23)
--- NOTE | 2020-06-17 17:28 | PN_ITS ---
Patient Problems: Active and Suspected Problems Intertrochanteric fracture (Acute) Subjective: Pt states pain is controlled for the most part but sore with therapies. No BM yet. Willing to go to SNF/TCU at d/c. Vitals/I&O's: Vital Signs Temp Pulse Resp BP Pulse Ox 98.3 F 99 18 123/54 H 93 06/17/20 08:01 06/17/20 08:01 06/17/20 08:01 06/17/20 08:01 06/17/20 08:01 Oxygen Flow Rate (L/min) 2 Oxygen Delivery Method Room Air Weight: 84 kg Body Mass Index (BMI) 24.4 Intake and Output for Last 24 Hours 06/15/20 06/16/20 06/17/20 23:59 23:59 23:59 Intake Total 670.25 / 670.25 950 / 950 1100 / 1100 Output Total 1000 / 1000 750 / 750 1450 / 1450 Balance -329.75 / -329.75 200 / 200 -350 / -350 General: Alert, Oriented x3, Cooperative, No apparent distress, Well developed, Well nourished, - - upper middle aged WM lying in bed watching TV,appears comfortable HEENT: Atraumatic, Normocephalic Lungs: Clear to auscultation, Normal air movement, No rhonchi, No wheeze, No rales Cardiovascular: Regular rate, Regular Rhythm, Normal S1, Normal S2, No murmurs, No Ectopic Activity, No rub noted, No Gallop Abdomen: Bowel Sounds Present, Soft, Non Tender, Non-Distended, No Hepato- splenomegaly Extremities: No clubbing, No cyanosis, No edema, Peripheral Pulses Normal, Tenderness, - - ecchymosis L upper medial thigh/groin and tenderness R medial leg Skin: No rashes, No breakdown, - - bandage over incision Neurological: Cranial nerves II-XII grossly intact, Neuro grossly intact Psych/Mental Status: Normal Affect, Appropriate Current Medications Acetaminophen (Acetaminophen 325 Mg Tablet) 650 mg PO Q6H PRN PRN PRN Reason: Pain Score 1-10/Temp > 100.7 F Last Admin: 06/15/20 19:54 Dose: 650 mg Documented by: Acetaminophen/Codeine Phosphate (Acetaminophen/Codeine #3 Tablet) 1 - 2 tablet PO Q6H PRN PRN PRN Reason: Pain Score 1-3 Al Hydroxide/Mg Hydroxide (Mag Hydrox/Al Hydrox/Simeth 30 Ml Udc) 30 ml PO Q6H PRN PRN PRN Reason: Gastric Burning Albuterol Sulfate (Albuterol 2.5 Mg/3 Ml Vial.Neb.) 2.5 mg INHALATION Q2H PRN PRN PRN Reason: Dyspnea, wheezing Last Admin: 06/14/20 14:55 Dose: 2.5 mg Documented by: Albuterol/Ipratropium (Ipratropium/Albuterol Sulfate 3 Ml Ampul.Neb) 3 ml INHALATION Q6HWA.RT [facility] Last Admin: 06/17/20 13:36 Dose: 3 ml Documented by: Apixaban (Apixaban 2.5 Mg Tablet) 2.5 mg PO BID [facility] Last Admin: 06/17/20 09:38 Dose: 2.5 mg Documented by: Atorvastatin Calcium (Atorvastatin Calcium 20 Mg Tablet) 20 mg PO QHS [facility] Last Admin: 06/16/20 21:51 Dose: 20 mg Documented by: Famotidine (Famotidine 20 Mg Tablet) 20 mg PO BID [facility] Last Admin: 06/17/20 09:37 Dose: 20 mg Documented by: Ferrous Sulfate (Ferrous Sulfate 325 Mg Tablet) 325 mg PO DAILY@1200 [facility] Last Admin: 06/17/20 12:54 Dose: 325 mg Documented by: Guaifenesin (Guaifenesin 10 Ml Udc (200mg/10ml)) 20 ml PO Q4H PRN PRN PRN Reason: COUGH Hydralazine HCl (Hydralazine 20 Mg/Ml Vial) 10 mg IV Q4H PRN PRN PRN Reason: SBP > 160 Sodium Chloride () 250 mls @ 15 mls/hr IV .[id number] PRN PRN Reason: Saline Flush Last Infusion: 06/15/20 18:11 Dose: 15 mls/hr Documented by: Sodium Chloride () 250 mls @ 15 mls/hr IV .[id number] PRN PRN Reason: Additional IVPB Infusion Magnesium Hydroxide (Magnesium Hydroxide 30 Ml Udc) 30 ml PO DAILY PRN PRN PRN Reason: Constipation Nicotine (Nicotine 14 Mg Patch) 14 mg TD DAILY PRN PRN Reason: Nicotine Craving Last Admin: 06/16/20 14:07 Dose: 14 mg Documented by: Ondansetron HCl (Ondansetron 4 Mg/2 Ml Vial) 4 mg IV Q8H PRN PRN PRN Reason: NAUSEA/VOMITING Oxycodone HCl (Oxycodone 5 Mg Tablet) 5 mg PO Q4H PRN PRN PRN Reason: Pain Score 4-5 Last Admin: 06/17/20 12:57 Dose: 5 mg Documented by: Oxycodone HCl (Oxycodone 5 Mg Tablet) 10 mg PO Q4H PRN PRN PRN Reason: Pain Score 6-10 Last Admin: 06/17/20 09:37 Dose: 10 mg Documented by: Potassium Chloride (Potassium Chloride 20 Meq Tablet) 40 meq PO DAILYCM [facility] Stop: 06/18/20 11:31 Last Admin: 06/17/20 08:00 Dose: 40 meq Documented by: Prochlorperazine Edisylate (Prochlorperazine 10 Mg/2 Ml Vial) 5 mg IV Q4H PRN PRN PRN Reason: Breakthrough nausea/vomiting Psyllium Hydrophilic Mucilloid (Psyllium 1 Packet) 1 packet PO DAILY PRN PRN PRN Reason: Constipation Last Admin: 06/17/20 12:58 Dose: 1 packet Documented by: Senna/Docusate Sodium (Senna/Docusate Sodium 1 Tablet) 2 tablet PO BID PRN PRN PRN Reason: Constipation Last Admin: 06/17/20 12:57 Dose: 2 tablet Documented by: Sodium Chloride (0.9% Saline Lock 10 Ml Syringe) 10 - 40 ml IV UD PRN PRN Reason: SALINE FLUSH Last Admin: 06/15/20 21:04 Dose: 20 ml Documented by: Tamsulosin HCl (Tamsulosin Hcl 0.4 Mg Capsule) 0.4 mg PO DAILY@1730 [facility] Last Admin: 06/17/20 17:23 Dose: 0.4 mg Documented by: Temazepam (Temazepam 15 Mg Capsule) 15 mg PO QHS PRN PRN PRN Reason: INSOMNIA Last Admin: 06/13/20 23:12 Dose: 15 mg Documented by: Throat Lozenges (Benzocaine/Menthol 1 Lozenge) 1 lozenge MUCOUS MEM Q2H PRN PRN PRN Reason: SORE THROAT Medical Necessity - Tobacco Use Smoking Status: Current every day smoker Tobacco Use: Non-smoker Assessment/Plan All Active Problems Intertrochanteric fracture (Acute) Acute angulated left intertrochanteric fracture s/p mechanical fall -s/p ORIF with Gamma nail on 06/13 -continue current pain meds -PT/OT -WBAT -Eliquis for DVT prophylaxis -F/U with Dr. Varela in 10 days (06/24) L Medial Thigh Pain -Doppler pending Acute Anemia in the post-operative period -stable counts -trend -PO Fe -IV Fe given -retic count was up Tobacco Abuse -suspect COPD -PFT as outpt recommend -nicotine patch HPL -continue statin DVT Prophylaxis -Eliquis per Ortho Code Status -Full Inpatient E&M: 10573 Subs Hosp L2
[2020-06-17 19:23] VITALS: PULSE 90; RESP 18
[2020-06-17] MEDS: Atorvastatin Calcium 20 MG Tablet PO (20:22)
[2020-06-17] MEDS: Acetaminophen 325 MG Tablet 650 MG PO (20:22)
[2020-06-17 20:30] VITALS: BP 124/58; PULSE 91; RESP 18; TEMP 36.8; O2SAT 96
[2020-06-18] VITALS (7 sets, daily range): BP systolic 100–125; BP diastolic 55–74; PULSE 61–100; RESP 16–18; TEMP 36.7–37.2; O2SAT 91–98
[2020-06-18] MEDS: oxyCODONE 5 MG Tablet 10 MG PO ×3 (02:27→17:01)
[2020-06-18 07:06] LABS: Absolute Lymphocyte Count 1.47 X10^3/uL (0.83-4.51); Absolute Neutrophil Count 6.2 X10^3/uL (2.0-7.7); Basophil# 0.03 X10^3/uL; Basophil% 0.3 % (0-1); Eosinophil# 0.25 X10^3/uL; Eosinophils% 2.6 % (0-5); Hematocrit 29.5 % (40-54); Hemoglobin 9.7 g/dL (13.0-16.5); Lymphocyte # 1.47 X10^3/ul (4.0); Lymphocyte % 15.5 % (19-41); Mean Corp Hgb Conc 32.9 g/dL (32-36); Mean Corpuscular Hgb 34.3 pg (27.0-32.0); Mean Corpuscular Volume 104.2 fL (80-94); Mean Platelet Vol. 9.7 fl (6.2-12.0); Monocyte# 1.47 X10^3/uL; Monocyte% 15.5 % (0-10); NRBC Flagged by Analyzer 0.2 % (0-5); Neutrophil # 6.22 X10^3/uL (2.7-7.7); Neutrophil % 65.7 % (47-70); Platelet Count 326 K/mm3 (150-450); RBC Distribution Width CV 13.1 % (11.6-14.6); RBC Distribution Width SD 49.3 fl (35.1-43.9); Red Blood Count 2.83 M/mm3 (4.6-6.2); White Blood Count 9.5 K/mm3 (4.4-11.0)
[2020-06-18] MEDS: Ipratropium/Albuterol Sulfate 3 ML AMPUL.NEB INHALATION ×3 (07:07→19:22)
[2020-06-18] MEDS: APIXABAN 2.5 MG TABLET PO ×2 (08:56→16:57)
[2020-06-18] MEDS: Famotidine 20 MG Tablet PO (08:57)
[2020-06-18] MEDS: Ferrous Sulfate 325 MG Tablet PO (12:29)
--- NOTE | 2020-06-18 14:35 | CASEMGMT ---
Social Work Note MUSA received call from Cindy in TCU stating pre-cert has been obtained, pt is able to discharge to TCU today. Physician updated. SW in to speak with pt. SW updated pt that pre-cert has been obtained for TCU and pt will discharge to TCU today. Pt states understanding, thanked this worker. RN updated. Plan: TCU today Stephanie Casey RADIOLOGIC TECHNOLOGIST, STENCIL CUTTER
--- NOTE | 2020-06-18 16:20 | PCM.TXEXTCAR ---
- Diet 06/14/20 00:32 Diet: Regular - General Type of Dietary Supplement:: Ensure Enlive Is pt able to select menu?: No - Routine Orders/Code Status Enema Frequency: Daily PRN Routine Lab Work: CBC, BMP Code Status: Full Code - Wound(s) left hip Wound Type: Surgical Incision left lower leg Wound Type: Surgical Incision - Therapies Weight Bearing: Weight bearing as tolerated Extremity Affected:: Left Lower Physical Therapy: Eval and Treat Occupational Therapy: Eval and Treat - Allergies/Procedures Done in Hospital Allergies/Adverse Reactions: Allergies No Known Allergies Allergy (Verified 06/12/20 14:56) Procedures: - - ORIF with GAMMA Nail - Type of Care/Length of Stay Estimated LOS: Convalescent Care Less Than 30 days Type of Care Needed: Skilled Rehab Potential: Good Prognosis: Good - Additional Orders/Day of Discharge Day of Discharge: 06/18/20 - Dietary and Speech Recommendations Dietitian Recommendations/Changes: Rec continue regular diet as ordered. - Follow Up Care Primary Care Physician: Inocencio Black MD [Primary Care Provider] - Please follow up with your Primary Care Physician in: 1-2 weeks Please Follow Up With: Rosendo Varela DO When: 06/24/2020-needs appt
--- NOTE | 2020-06-18 16:25 | PCM.DC.SUM ---
Discharge Date and Diagnosis - Problem List Patient Problems: Active and Suspected Problems Intertrochanteric fracture (Acute) Date of Admission: 06/12/20 Date of Discharge: 06/18/20 - Primary Discharge Diagnosis Acute Problems: Active Problems Intertrochanteric fracture (Acute) - Secondary Discharge Diagnosis Chronic Problems: Chronic Problems Nicotine abuse (Chronic) Hospital Course and Treatment Imaging Results: STUDY: X-RAY - PELVIS AND LEFT HIP REASON FOR EXAM: Male, 69 years old. fall, left hip pain, shortening and rotation TECHNIQUE: 3 views of the pelvis and hip. COMPARISON: None. FINDINGS: There is a non-specific bowel gas pattern. Normal visualized soft tissue structures. Normal bilateral iliac wings, sacroiliac joints and visualized sacrum. Normal bilateral superior and inferior pubic rami. Normal pubic symphysis. Normal bilateral ischial tuberosities. Acute angulated fracture of the intertrochanteric left femur. Normal acetabulum. Normal hip joint. RAD/HIP, UNI W/ Pelvis 2-3 Views IMPRESSION: Acute angulated fracture of the intertrochanteric femur. Reason For Study: LLE pain (medial thigh) RIGHT LEFT GSV is normal. GSV is normal. CFV is compressible, spontaneous, phasic, CFV is compressible, spontaneous, phasic, competent and demonstrates normal competent, and demonstrates normal augmentation. augmentation. FV is compressible, spontaneous, phasic, FV is compressible, spontaneous, phasic, competent and demonstrates normal competent and demonstrates normal augmentation. augmentation. T/P Trunk is compressible. T/P Trunk is compressible. PTV is compressible. PTV is compressible. RT PerV is compressible. LT PerV is compressible. POP V is dialted, compressible and POP V is dialted, compressible and demonstrates rouleaux flow. demonstrates rouleaux flow. Procedure This is a venous duplex using B-mode, color flow and spectral Doppler. Exam performed portable in patient room. The exam was diagnostic. A preliminary report was called and/or faxed to [facility]. Interpretation Summary No evidence for acute deep venous thrombosis bilateral lower extremities with patent and compressible bilateral great saphenous veins. Bilateral popliteal veins are mildly dilated and demonstrate sluggish flow. Thrombosis is yet not identified. Orthopaedics Operations: None, - - ORIF L Hip Procedures: - - ORIF L hip Summary of Care Provided: Mr Colón is a 69 year old M who presented to the ED on 06/12 with L hip pain. He had been walking his dog and slipped and fell. He landed directly on his L hip and immediately developed severe pain and was unable to ambulate. Xrays in the ED demonstrated L hip fracture. He was taken to the OR on 06/13/2020 where an ORIF left hip with 400 mm x 13 mm Gamma nail was performed. He tolerated this well. Weightbearing status postoperatively is WBAT. He is to be on DVT prophylaxis with Eliquis 2.5 mg daily until discontinued by Dr. Varela and is to be seen by Dr. Varela in his office on 06/24 for his post-operative follow up. He did require 1 dose of IV iron and was started on PO Fe. He did develop some medial L thigh pain and a doppler was done to r/o DVT. This was negative for DVT. PT and OT felt that he would benefit from further rehab. His insurance denied an acute rehab admission and he was discharged to the TCU for continued care. He is to continue a baby asa with his Eliquis at this time. Pt will need a Vitamin D level and possible DEXA as an outpt as he is at increased risk for bone disease with his smoking hx. Discharge Dx Acute angulated left intertrochanteric fracture s/p mechanical fall L Medial Thigh Pain Acute Anemia in the post-operative period Tobacco Abuse HPL Discharge Time > 35' Patient Problems: Active and Suspected Problems Intertrochanteric fracture (Acute) - Physical Exam Vitals/I&O's: Vital Signs Temp Pulse Resp BP Pulse Ox 98.0 F 74 18 125/56 H 98 06/18/20 16:07 06/18/20 16:07 06/18/20 16:07 06/18/20 16:07 06/18/20 16:07 Oxygen Flow Rate (L/min) 2 Oxygen Delivery Method Room Air Weight: 84 kg Body Mass Index (BMI) 24.4 Intake and Output for Last 24 Hours 06/16/20 06/17/20 06/18/20 23:59 23:59 23:59 Intake Total 950 / 950 1100 / 1550 1700 / 1700 Output Total 750 / 750 1450 / 2250 1900 / 1900 Balance 200 / 200 -350 / -700 -200 / -200 General: Alert, Oriented x3, Cooperative, No apparent distress, Well developed, Well nourished HEENT: Atraumatic, Normocephalic Oral: Moist Mucosa, No Gingival or Mucosal Lesions/ Ulcerations Neck: Supple, Trachea Midline Lungs: Clear to auscultation, No rhonchi, No wheeze, No rales, Diminished - diffusely Cardiovascular: Regular rate, Regular Rhythm, Normal S1, Normal S2, No murmurs, No Ectopic Activity, No rub noted, No Gallop Abdomen: Bowel Sounds Present, Soft, Non Tender, Non-Distended, No Hepato-splenomegaly, No hernias noted Extremities: No clubbing, No cyanosis, No edema, Capillary Refill Less than 3 Seconds, Peripheral Pulses Normal Skin: No rashes, No breakdown, - - ecchymosis in varied stages of healing L medial thigh and groin, lateral incisions with dressings in place, incision CDI Musculoskeletal: No Tenderness to Palpation of Joints or Extremities, No Muscle Wasting, Arthritic Changes Lymphatic: No Cervical, Supraclavicular, or Inguinal Adenopathy Neurological: Cranial nerves II-XII grossly intact, Neuro grossly intact, - - LLE weakness 2/2 pain and disuse Psych/Mental Status: Normal Affect, Appropriate Laboratory Results 06/18/20 05:50: WBC 9.5, RBC 2.83 L, Hgb 9.7 L, Hct 29.5 L, MCV 104.2 H, MCH 34.3 H, MCHC 32.9, RDW Std Deviation 49.3 H, RDW Coeff of Ena 13.1, Plt Count 326, MPV 9.7, Immature Gran % (Auto) 0.400, Neut % (Auto) 65.7, Lymph % (Auto) 15.5 L, [place] % (Auto) 15.5 H, Eos % (Auto) 2.6, Baso % (Auto) 0.3, Absolute Neuts (auto) 6.2, Absolute Lymphs (auto) 1.47, Nucleated RBC % 0.2 Current Medications Acetaminophen (Acetaminophen 325 Mg Tablet) 650 mg PO Q6H PRN PRN PRN Reason: Pain Score 1-10/Temp > 100.7 F Last Admin: 06/17/20 20:22 Dose: 650 mg Documented by: Acetaminophen/Codeine Phosphate (Acetaminophen/Codeine #3 Tablet) 1 - 2 tablet PO Q6H PRN PRN PRN Reason: Pain Score 1-3 Al Hydroxide/Mg Hydroxide (Mag Hydrox/Al Hydrox/Simeth 30 Ml Udc) 30 ml PO Q6H PRN PRN PRN Reason: Gastric Burning Albuterol Sulfate (Albuterol 2.5 Mg/3 Ml Vial.Neb.) 2.5 mg INHALATION Q2H PRN PRN PRN Reason: Dyspnea, wheezing Last Admin: 06/14/20 14:55 Dose: 2.5 mg Documented by: Albuterol/Ipratropium (Ipratropium/Albuterol Sulfate 3 Ml Ampul.Neb) 3 ml INHALATION Q6HWA.RT [facility] Last Admin: 06/18/20 13:19 Dose: 3 ml Documented by: Apixaban (Apixaban 2.5 Mg Tablet) 2.5 mg PO BID [facility] Last Admin: 06/18/20 08:56 Dose: 2.5 mg Documented by: Atorvastatin Calcium (Atorvastatin Calcium 20 Mg Tablet) 20 mg PO QHS [facility] Last Admin: 06/17/20 20:22 Dose: 20 mg Documented by: Famotidine (Famotidine 20 Mg Tablet) 20 mg PO BID [facility] Last Admin: 06/18/20 08:57 Dose: 20 mg Documented by: Ferrous Sulfate (Ferrous Sulfate 325 Mg Tablet) 325 mg PO DAILY@1200 [facility] Last Admin: 06/18/20 12:29 Dose: 325 mg Documented by: Guaifenesin (Guaifenesin 10 Ml Udc (200mg/10ml)) 20 ml PO Q4H PRN PRN PRN Reason: COUGH Hydralazine HCl (Hydralazine 20 Mg/Ml Vial) 10 mg IV Q4H PRN PRN PRN Reason: SBP > 160 Sodium Chloride () 250 mls @ 15 mls/hr IV .[id number] PRN PRN Reason: Saline Flush Last Infusion: 06/15/20 18:11 Dose: 15 mls/hr Documented by: Sodium Chloride () 250 mls @ 15 mls/hr IV .[id number] PRN PRN Reason: Additional IVPB Infusion Magnesium Hydroxide (Magnesium Hydroxide 30 Ml Udc) 30 ml PO DAILY PRN PRN PRN Reason: Constipation Nicotine (Nicotine 14 Mg Patch) 14 mg TD DAILY PRN PRN Reason: Nicotine Craving Last Admin: 06/16/20 14:07 Dose: 14 mg Documented by: Ondansetron HCl (Ondansetron 4 Mg/2 Ml Vial) 4 mg IV Q8H PRN PRN PRN Reason: NAUSEA/VOMITING Oxycodone HCl (Oxycodone 5 Mg Tablet) 5 mg PO Q4H PRN PRN PRN Reason: Pain Score 4-5 Last Admin: 06/17/20 12:57 Dose: 5 mg Documented by: Oxycodone HCl (Oxycodone 5 Mg Tablet) 10 mg PO Q4H PRN PRN PRN Reason: Pain Score 6-10 Last Admin: 06/18/20 06:11 Dose: 10 mg Documented by: Prochlorperazine Edisylate (Prochlorperazine 10 Mg/2 Ml Vial) 5 mg IV Q4H PRN PRN PRN Reason: Breakthrough nausea/vomiting Psyllium Hydrophilic Mucilloid (Psyllium 1 Packet) 1 packet PO DAILY PRN PRN PRN Reason: Constipation Last Admin: 06/17/20 12:58 Dose: 1 packet Documented by: Senna/Docusate Sodium (Senna/Docusate Sodium 1 Tablet) 2 tablet PO BID PRN PRN PRN Reason: Constipation Last Admin: 06/17/20 20:22 Dose: 2 tablet Documented by: Sodium Chloride (0.9% Saline Lock 10 Ml Syringe) 10 - 40 ml IV UD PRN PRN Reason: SALINE FLUSH Last Admin: 12/19/20 21:04 Dose: 20 ml Documented by: Tamsulosin HCl (Tamsulosin Hcl 0.4 Mg Capsule) 0.4 mg PO DAILY@1730 [facility] Last Admin: 06/17/20 17:23 Dose: 0.4 mg Documented by: Temazepam (Temazepam 15 Mg Capsule) 15 mg PO QHS PRN PRN PRN Reason: INSOMNIA Last Admin: 06/13/20 23:12 Dose: 15 mg Documented by: Throat Lozenges (Benzocaine/Menthol 1 Lozenge) 1 lozenge MUCOUS MEM Q2H PRN PRN PRN Reason: SORE THROAT Home Medications: Medications to take at Discharge Ascorbic Acid [C-1000] 1,000 mg PO 4X/DAY 06/12/20 Aspirin E.C. [Ecotrin] 81 mg PO DAILY@0800 06/12/20 Aspirin E.C. [Ecotrin] 325 mg PO DAILY@0800 06/12/20 Atorvastatin Calcium [Lipitor] 20 mg PO DAILY 06/12/20 Cholecalciferol (Vitamin D3) [Vitamin D3] 1,000 unit PO DAILY 06/12/20 Cyanocobalamin (Vitamin B-12) [Vitamin B-12] 1,000 mcg PO DAILY 06/12/20 Multivitamin with Minerals [Multiple Vitamin] 1 tab PO DAILY 06/12/20 Vitamin A 8,000 unit PO DAILY 06/12/20 Acetaminophen [Tylenol Tablet] 650 mg PO Q6H PRN PRN tab 06/18/20 Apixaban [Eliquis] 2.5 mg PO BID tab 06/18/20 Ferrous Sulfate 325 mg PO DAILY@1200 tab 06/18/20 Nicotine [Nicoderm] 14 mg TD DAILY PRN patch 06/18/20 Oxycodone [Oxyir] 5 mg PO Q4H PRN PRN 2 Days #12 tab 06/18/20 Psyllium [Metamucil] 1 packet PO DAILY PRN PRN packet 06/18/20 Senna/Docusate Sodium [Senokot-S] 2 tab PO BID PRN PRN tab 06/18/20 Tamsulosin HCl [Flomax] 0.4 mg PO DAILY@1730 cap 06/18/20 Primary Care Physician: Inocencio Black MD [Primary Care Provider] - Please follow up with your Primary Care Physician in: 1-2 weeks Please Follow Up With: Rosendo Varela, DO When: 06/24/2020-needs appt Medical Necessity - Tobacco Use Smoking Status: Current every day smoker Tobacco Use: Non-smoker Meaningful Use Info Meaningful Use Diagnoses (Choose all that apply): None applicable Inpatient E&M: 53878 Disch Hosp
[2020-06-18] MEDS: Tamsulosin HCl 0.4 MG Capsule PO (17:02)
== END 2020-06-18 20:28 | DRG 481 ==
LOC: ED 16:24 → MS3 16:49
PROVIDERS: Internal Medicine; Orthopaedic Surgery; Admitting Provider Family Medicine; Emergency Provider Emergency Medicine; PCP Family Medicine; Visit Provider Internal Medicine
PROC: 0QS704Z Reposition Left Upper Femur with Internal Fixation Device, Open Approach (ICD-10-PCS; CPT 27245; principal; 2020-06-13 12:30)
DX: S72.142A Displaced intertrochanteric fracture of left femur, initial encounter for closed fracture (principal); D62 Acute posthemorrhagic anemia; M96.811 Intraoperative hemorrhage and hematoma of a musculoskeletal structure complicating other procedure; W10.2XXA Fall (on)(from) incline, initial encounter; Y93.K1 Activity, walking an animal; Y92.008 Other place in unspecified non-institutional (private) residence as the place of occurrence of the external cause; F17.210 Nicotine dependence, cigarettes, uncomplicated; E78.5 Hyperlipidemia, unspecified; Y83.8 Other surgical procedures as the cause of abnormal reaction of the patient, or of later complication, without mention of misadventure at the time of the procedure; Y92.239 Unspecified place in hospital as the place of occurrence of the external cause; R34 Anuria and oliguria; K21.9 Gastro-esophageal reflux disease without esophagitis
CPT/HCPCS: 36415; 71045; 73502; 73560; 76000; 80048; 80053; 83735; 85025; 85027; 85045; 85610; 85730; 86850; 86900; 86901; 87426; 93005; 93970; 94640; 97116; 97162; 97166; 97530; 99251; 99285; 99406; C1713; J7030; J7050; J7120; A4216; G0463; J2405; J2916

== ENCOUNTER 2020-06-18 20:58 | Inpatient (IN) | payer MEDICARE, SELFPAY ==
[2020-06-13 11:37] VITALS: BMI 24.4
[2020-06-18 21:14] VITALS: BMI 24.7
[2020-06-18 21:21] VITALS: BP 119/66; PULSE 62; RESP 18; TEMP 37.2; O2SAT 91
[2020-06-18 21:24] VITALS: BMI 24.7
[2020-06-18 21:28] VITALS: PULSE 62
--- NOTE | 2020-06-18 21:43 | HP.PCM_ITS ---
Problem List (1) Debility Status: Acute (2) Closed left hip fracture Status: Acute (3) Hyperlipidemia Status: Chronic (4) Postoperative anemia Status: Acute (5) Nicotine abuse Status: Chronic History of Present Illness Date of Admission: 06/18/20 Chief Complaint: Here for rehabilitation, strengthening, prior to discharge home with . 06/12/20 The patient is a 69 year old Male with below past medical history presented to [facility] Emergency Department with fall, left hip pain. 06/12/20 X-ray pelvis, left hip showed left hip fracture. 06/12/20 Chest X-ray negative. 06/22/20 X-ray left knee medial compartment arthritis. Walking his dog, slipped, fell on sloped driveway, landed left hip. Left hip fracture. Morphine, Zofran IV given. 06/12/20 Admit to Hospital. Prepare for surgery. 06/13/20 Orthopedics performed ORIF left hip with Gamma nail. Eliquis 2.5MG BID for DVT prophylaxis. IV iron, PO iron given for postoperative anemia. Left medial thigh pain, Doppler ultrasound done NEGATIVE DVT. PT/OT recommended SNF. 06/18/20 Admit to TCU with debility, here for rehabilitation, strengthening, prior to discharge home with . Past Medical History Past Medical History (Chronic Problems): Chronic Problems Nicotine abuse (Chronic) Hyperlipidemia (Chronic) Allergies No Known Allergies Allergy (Verified 06/12/20 14:56) Home Medications: Ambulatory Orders Medication Instructions Recorded Ascorbic Acid [C-1000] 1,000 mg PO 4X/DAY 06/12/20 Aspirin E.C. [Ecotrin] 81 mg PO DAILY@0800 06/12/20 Atorvastatin Calcium [Lipitor] 20 mg PO DAILY 06/12/20 Cholecalciferol (Vitamin D3) 1,000 unit PO DAILY 06/12/20 [Vitamin D3] Cyanocobalamin (Vitamin B-12) 1,000 mcg PO DAILY 06/12/20 [Vitamin B-12] Multivitamin with Minerals 1 tab PO DAILY 06/12/20 [Multiple Vitamin] Vitamin A 8,000 unit PO DAILY 06/12/20 Acetaminophen [Tylenol Tablet] 650 mg PO Q6H PRN PRN tab 06/18/20 Apixaban [Eliquis] 2.5 mg PO BID 06/18/20 Ferrous Sulfate 325 mg PO DAILY@1200 06/18/20 Nicotine [Nicoderm] 14 mg TD DAILY PRN patch 06/18/20 Oxycodone [Oxyir] 5 mg PO Q4H PRN PRN 2 Days #12 tab 06/18/20 Psyllium [Metamucil] 1 packet PO DAILY PRN PRN packet 06/18/20 Senna/Docusate Sodium [Senokot-S] 2 tab PO BID PRN PRN tab 06/18/20 Tamsulosin HCl [Flomax] 0.4 mg PO DAILY@1730 06/18/20 Surgical History: appendectomy, - - left knee repair, small bowel fistula repair, ORIF left hip with Gamma nail. Psychiatric History: No pertinent psych hx Lives: Spouse/ Significant Other Smoking Status: Current every day smoker Tobacco Use: Cigarettes Alcohol: None Drugs: None - *Family History Maternal History Items: No pertinent history Paternal History Items: No pertinent history Review of Systems Constitutional: Denies: Chills, Fever, Weight Change HEENT: Denies: Head Aches, Sinus Congestion, Sinus Drainage Cardiovascular: Denies: Chest Pain, Palpitations Respiratory: Denies: Cough, Shortness of breath at rest, Sputum production Gastrointestinal: Denies: Abdominal Pain, Nausea, Vomiting Genitourinary: Denies: Dysuria Musculoskeletal: Denies: Joint Pain, Joint Tenderness Skin: Denies: Rash, Wounds Neurological: Denies: Numbness, Tingling, Focal weakness Psychiatric: Denies: Anxiety, Depression, Homicidal Ideations, Suicidal Ideations Hematologic/ Lymphatic: Denies: Easy Bruising, Easy Bleeding VTE Information - Inpt Only VTE Present on Admission: No VTE Mechan Device Prophylaxis: Knee High HANY Hose VTE Pharm Prophylaxis ordered?: Yes Patient Problems: Active and Suspected Problems Debility (Acute) Closed left hip fracture (Acute) Postoperative anemia (Acute) - Physical Exam Vitals/I&O's: Vital Signs Temp Pulse Resp BP Pulse Ox 98.9 F 62 18 119/66 91 06/18/20 21:21 06/18/20 21:21 06/18/20 21:21 06/18/20 21:21 06/18/20 21:21 Oxygen Delivery Method Room Air Weight: 85 kg Body Mass Index (BMI) 24.7 General: Alert, Oriented x3, Cooperative HEENT: Atraumatic, PERRLA, EOMI, Normocephalic Neck: Supple, No JVD, Negative Carotid Bruits Lungs: Clear to auscultation, Normal air movement Cardiovascular: Regular rate, No murmurs Abdomen: Bowel Sounds Present, Soft, Non Tender Extremities: No edema, Capillary Refill Less than 3 Seconds Skin: No rashes, No breakdown Musculoskeletal: No Tenderness to Palpation of Joints or Extremities Neurological: Cranial nerves II-XII grossly intact Psych/Mental Status: Normal Affect, Appropriate Current Medications Acetaminophen (Acetaminophen 325 Mg Tablet) 650 mg PO Q6H PRN PRN PRN Reason: Pain Score 1-10/Temp > 100.7 F Apixaban (Apixaban 2.5 Mg Tablet) 2.5 mg PO BID [facility] Ascorbic Acid (Ascorbic Acid 500 Mg Tablet) 1,000 mg PO 4X/DAY [facility] Aspirin (Aspirin E.C. 81 Mg Tablet) 81 mg PO DAILY@0800 [facility] Atorvastatin Calcium (Atorvastatin Calcium 20 Mg Tablet) 20 mg PO QHS [facility] Cholecalciferol (Cholecalciferol (Vit D3) 1,000 Unit (25mcg)) 1,000 unit PO DAILY [facility] Cyanocobalamin (Cyanocobalamin 500 Mcg Tablet) 1,000 mcg PO DAILY [facility] Ferrous Sulfate (Ferrous Sulfate 325 Mg Tablet) 325 mg PO DAILY@1200 [facility] Multivitamins/Minerals (Multivitamins,Ther W-Minerals Tablet) 1 tablet PO DAILY@0800 [facility] Nicotine (Nicotine 14 Mg Patch) 14 mg TD DAILY PRN PRN Reason: Nicotine Craving Non-Formulary Medication (Vitamin A) 8,000 unit PO DAILY [facility] Oxycodone HCl (Oxycodone 5 Mg Tablet) 5 mg PO Q4H PRN PRN PRN Reason: Pain Score 4-5 Psyllium Hydrophilic Mucilloid (Psyllium 1 Packet) 1 packet PO DAILY PRN PRN PRN Reason: Constipation Senna/Docusate Sodium (Senna/Docusate Sodium 1 Tablet) 1 tablet PO BID PRN PRN PRN Reason: Constipation Tamsulosin HCl (Tamsulosin Hcl 0.4 Mg Capsule) 0.4 mg PO DAILY@1730 [facility] Tuberculin PPD (Tuberculin,Purif.Prot.Deriv. 50 Tu/Ml Vial) 5 tu ID [id number] Stop: 06/19/20 10:01 Tuberculin PPD (Tuberculin,Purif.Prot.Deriv. 50 Tu/Ml Vial) 5 tu ID [id number] Stop: 06/26/20 10:01 Assessment/Plan All Active Problems Intertrochanteric fracture (Acute) Debility (Acute) Closed left hip fracture (Acute) Postoperative anemia (Acute) 69 year old male with below past medical history hospitalized for left hip fracture, underwent ORIF left hip with gamma nail 06/13/20, postoperative course complicated left medial thigh pain, DVT ruled out, postoperative anemia requiring iron, admitted to TCU with debility, here for rehabilitation, strengthening, prior to discharge home with . * Debility - PT/OT. * Pain -Tylenol 1000MG Q6H PRN pain (1-3), Tramadol 50MG Q6H PRN pain (4-5), Oxycodone 5MG Q4H PRN pain (6-10). * Bowel - Miralax 17GM daily, Senna/colace 2 tablets BID, MOM 30ML daily PRN, Dulcolax 10MG AL daily PRN. * Adult immunization - Administer Prevnar 13, Pneumovax 23, Fluzone as appropriate. * DVT prophylaxis - Eliquis 2.5MG BID. * Vitamin C deficiency - Vitamin C 1000MG 4x/day. * CV prophylaxis - Aspirin 81MG daily. * Hyperlipidemia - Atorvastatin 20MG QHS. * Vitamin D deficiency - D3 1000IU daily. * Vitamin B12 deficiency - B12 1000MCG daily. * Iron deficiency anemia - Iron sulfate 325MG daily. * Nutrition - MVI daily. * Nicotine abuse - Nicotine patch 14MG TD daily. * BPH - Tamsulosin 0.4MG daily.
[2020-06-18] MEDS: oxyCODONE 5 MG Tablet PO (22:54)
[2020-06-18] MEDS: Ascorbic Acid 500 MG Tablet 1000 MG PO (23:34)
[2020-06-19 05:39] LABS: Absolute Lymphocyte Count 1.87 X10^3/uL (0.83-4.51); Absolute Neutrophil Count 6.4 X10^3/uL (2.0-7.7); Basophil# 0.05 X10^3/uL; Basophil% 0.5 % (0-1); Eosinophil# 0.26 X10^3/uL; Eosinophils% 2.5 % (0-5); Hematocrit 28.2 % (40-54); Hemoglobin 9.4 g/dL (13.0-16.5); Lymphocyte # 1.87 X10^3/ul (4.0); Lymphocyte % 18.2 % (19-41); Mean Corp Hgb Conc 33.3 g/dL (32-36); Mean Corpuscular Hgb 34.4 pg (27.0-32.0); Mean Corpuscular Volume 103.3 fL (80-94); Mean Platelet Vol. 9.7 fl (6.2-12.0); Monocyte# 1.64 X10^3/uL; Monocyte% 15.9 % (0-10); NRBC Flagged by Analyzer 0.2 % (0-5); Neutrophil # 6.41 X10^3/uL (2.7-7.7); Neutrophil % 62.3 % (47-70); POSITIVE DIFFERENTIAL YES; Platelet Count 375 K/mm3 (150-450); RBC Distribution Width CV 13.5 % (11.6-14.6); RBC Distribution Width SD 49.1 fl (35.1-43.9); Red Blood Count 2.73 M/mm3 (4.6-6.2); White Blood Count 10.3 K/mm3 (4.4-11.0)
[2020-06-19 05:57] LABS: Differential Indicated SCAN CRITERIA MET
[2020-06-19 06:15] LABS: Anion Gap 6 (5-15); BUN 17 mg/dL (7-18); BUN/Creat Ratio 25.6 RATIO (10-20); Calcium,Total 8.4 mg/dL (8.5-10.1); Chloride 101 mmol/L (98-107); Creatinine, Serum 0.66 mg/dL (0.70-1.30); EST Glomerular Filtration Rate 126 mL/min (>60); Est Glom Filt Rate - Afr Amer 153 mL/min (>60); Glucose 109 mg/dL (74-106); Potassium 4.2 mmol/L (3.5-5.1); Sodium Level 136 mmol/L (136-145)
[2020-06-19 07:00] VITALS: BP 113/56; PULSE 98; RESP 18; TEMP 36.8; O2SAT 94
[2020-06-19] MEDS: Menthol/Lanolin/Calamine/Znox 113 GM Tube 1 APPLIC TOPICAL ×2 (07:02→19:56)
[2020-06-19] MEDS: Polyethylene Glycol 3350 17 GM PACKET PO (07:03)
[2020-06-19] MEDS: Senna/Docusate Sodium 1 Tablet 2 TABLET PO ×2 (07:03→18:05)
[2020-06-19] MEDS: APIXABAN 2.5 MG TABLET PO ×2 (07:03→18:05)
[2020-06-19] MEDS: Cyanocobalamin 500 MCG Tablet 1000 MCG PO (07:04)
[2020-06-19] MEDS: Aspirin E.C. 81 MG Tablet PO (08:24)
[2020-06-19] MEDS: Multivitamins,Ther W-Minerals Tablet 1 TABLET PO (08:24)
[2020-06-19] MEDS: Ferrous Sulfate 325 MG Tablet PO (10:57)
[2020-06-19] MEDS: Tuberculin,Purif.prot.deriv. 50 TU/ML Vial 5 ML ID (11:02)
[2020-06-19] MEDS: Ascorbic Acid 500 MG Tablet 1000 MG PO ×3 (12:27→19:56)
[2020-06-19 12:29] VITALS: PULSE 99; RESP 16; O2SAT 91
[2020-06-19] MEDS: oxyCODONE 5 MG Tablet PO ×2 (13:36→18:38)
[2020-06-19] MEDS: Acetaminophen 500 MG Tablet 1000 MG PO (13:37)
[2020-06-19 14:49] VITALS: BP 105/60; PULSE 106; RESP 16; TEMP 37; O2SAT 91
--- NOTE | 2020-06-19 15:03 | CASEMGMT ---
Social Work Discussed code status with pt. Pt confirmed full code. MOLST form reviewed, communication to , placed in chart. Lea Ferrell, SPLICING MACHINE OPERATOR [employer] DIRECTOR
[2020-06-19] MEDS: Tamsulosin HCl 0.4 MG Capsule PO (18:06)
[2020-06-19] MEDS: Atorvastatin Calcium 20 MG Tablet PO (19:56)
[2020-06-20] MEDS: Cyanocobalamin 500 MCG Tablet 1000 MCG PO (05:48)
[2020-06-20] MEDS: Polyethylene Glycol 3350 17 GM PACKET PO (05:48)
[2020-06-20] MEDS: Senna/Docusate Sodium 1 Tablet 2 TABLET PO ×2 (05:50→17:37)
[2020-06-20] MEDS: Ascorbic Acid 500 MG Tablet 1000 MG PO ×4 (05:50→20:22)
[2020-06-20] MEDS: APIXABAN 2.5 MG TABLET PO ×2 (05:51→17:35)
[2020-06-20] MEDS: oxyCODONE 5 MG Tablet PO ×3 (06:02→16:06)
[2020-06-20] MEDS: Menthol/Lanolin/Calamine/Znox 113 GM Tube 1 APPLIC TOPICAL ×2 (06:04→20:21)
[2020-06-20 06:06] VITALS: BP 106/53; PULSE 83; RESP 18; TEMP 37.3; O2SAT 92
[2020-06-20] MEDS: Aspirin E.C. 81 MG Tablet PO (08:54)
[2020-06-20] MEDS: Multivitamins,Ther W-Minerals Tablet 1 TABLET PO (08:54)
[2020-06-20] MEDS: Ferrous Sulfate 325 MG Tablet PO (10:54)
[2020-06-20 14:26] VITALS: BP 125/69; PULSE 89; RESP 17; TEMP 36.5; O2SAT 95
[2020-06-20] MEDS: Tamsulosin HCl 0.4 MG Capsule PO (17:36)
[2020-06-20] MEDS: traMADol 50 MG Tablet PO (17:39)
[2020-06-20] MEDS: Atorvastatin Calcium 20 MG Tablet PO (20:22)
[2020-06-21 05:00] VITALS: BP 112/59; PULSE 82; RESP 14; TEMP 36.3; O2SAT 92
[2020-06-21] MEDS: Cyanocobalamin 500 MCG Tablet 1000 MCG PO (05:38)
[2020-06-21] MEDS: Senna/Docusate Sodium 1 Tablet 2 TABLET PO ×2 (05:38→16:47)
[2020-06-21] MEDS: Ascorbic Acid 500 MG Tablet 1000 MG PO ×4 (05:39→20:01)
[2020-06-21] MEDS: APIXABAN 2.5 MG TABLET PO ×3 (05:39→20:01)
[2020-06-21] MEDS: Polyethylene Glycol 3350 17 GM PACKET PO (05:39)
[2020-06-21] MEDS: Menthol/Lanolin/Calamine/Znox 113 GM Tube 1 APPLIC TOPICAL ×2 (05:39→21:01)
[2020-06-21] MEDS: Aspirin E.C. 81 MG Tablet PO (08:14)
[2020-06-21] MEDS: Multivitamins,Ther W-Minerals Tablet 1 TABLET PO (08:14)
[2020-06-21 10:11] VITALS: PULSE 87; RESP 16; O2SAT 93
[2020-06-21] MEDS: Ferrous Sulfate 325 MG Tablet PO (11:17)
--- NOTE | 2020-06-21 14:42 | PCM.PN.RX ---
<Anthony Talley C - Last Filed: 06/21/20 14:42> Progress Note - Pharmacy Subjective: [] TCU Admission Objective: Allergies No Known Allergies Allergy (Verified 06/12/20 14:56) Current Medications Generic Name Dose Route Start Last Admin Trade Name Freq PRN Reason Stop Dose Admin Acetaminophen 1,000 mg 06/18/20 21:55 06/19/20 13:37 Acetaminophen 500 Mg Tablet PO 1,000 mg Q6H PRN PRN Administration Pain Score 1-3 Apixaban 2.5 mg 06/19/20 06:00 06/21/20 05:39 Apixaban 2.5 Mg Tablet PO 2.5 mg BID ROSA Administration Ascorbic Acid 1,000 mg 06/18/20 22:00 06/21/20 11:17 Ascorbic Acid 500 Mg Tablet PO 1,000 mg 4X/DAY ROSA Administration Aspirin 81 mg 06/19/20 08:00 06/21/20 08:14 Aspirin E.C. 81 Mg Tablet PO 81 mg DAILY@0800 ROSA Administration Atorvastatin Calcium 20 mg 06/19/20 22:00 06/20/20 20:22 Atorvastatin Calcium 20 Mg Tablet PO 20 mg QHS ROSA Administration Bisacodyl 10 mg 06/18/20 21:55 Bisacodyl 10 Mg Suppository RECTAL DAILY PRN Constipation Calamine/Phenol 1 applic 06/19/20 06:00 06/21/20 05:39 Menthol/Lanolin/Calamine/Znox 113 Gm Tube TOPICAL 1 applicatio 0600,2200 [facility] Administration Protocol Cholecalciferol 1,000 unit 06/19/20 06:00 06/21/20 05:39 Cholecalciferol (Vit D3) 1,000 Unit (25mcg) PO 1,000 unit DAILY ROSA Administration Cyanocobalamin 1,000 mcg 06/19/20 06:00 06/21/20 05:38 Cyanocobalamin 500 Mcg Tablet PO 1,000 mcg DAILY ROSA Administration Ferrous Sulfate 325 mg 06/19/20 12:00 06/21/20 11:17 Ferrous Sulfate 325 Mg Tablet PO 325 mg DAILY@1200 ROSA Administration Magnesium Hydroxide 30 ml 06/18/20 21:55 Magnesium Hydroxide 30 Ml Udc PO DAILY PRN Constipation Multivitamins/Minerals 1 tablet 06/19/20 08:00 06/21/20 08:14 Multivitamins,Ther W-Minerals Tablet PO 1 tablet DAILY@0800 ROSA Administration Nicotine 14 mg 06/19/20 06:00 06/21/20 05:39 Nicotine 14 Mg Patch TD 14 mg DAILY ROSA Administration Nutritional Formula (Lactose Free) 120 ml 06/19/20 06:00 06/21/20 11:16 Ensure Enlive 120 Ml Liquid PO 120 ml 4X/DAY ROSA Administration Oxycodone HCl 5 mg 06/18/20 21:24 06/20/20 16:06 Oxycodone 5 Mg Tablet PO 5 mg Q4H PRN PRN Administration Pain Score 6-10 Polyethylene Glycol 17 gm 06/19/20 06:00 06/21/20 05:39 Polyethylene Glycol 3350 17 Gm Packet PO 17 gm DAILY ROSA Administration Senna/Docusate Sodium 2 tablet 06/19/20 06:00 06/21/20 05:38 Senna/Docusate Sodium 1 Tablet PO 2 tablet BID ROSA Administration Tamsulosin HCl 0.4 mg 06/19/20 17:30 06/20/20 17:36 Tamsulosin Hcl 0.4 Mg Capsule PO 0.4 mg DAILY@1730 [facility] Administration Tramadol HCl 50 mg 06/18/20 21:54 06/20/20 17:39 Tramadol 50 Mg Tablet PO 50 mg Q6H PRN PRN Administration Pain Score 4-5 Tuberculin PPD 5 tu 06/26/20 10:00 Tuberculin,Purif.Prot.Deriv. 50 Tu/Ml Vial ID 06/26/20 10:01 X1 ONE Problem List Nicotine abuse (Chronic) Debility (Acute) Closed left hip fracture (Acute) Hyperlipidemia (Chronic) Postoperative anemia (Acute) Vital Signs Temp Pulse Resp BP Pulse Ox 97.4 F L 87 16 112/59 L 93 06/21/20 05:00 06/21/20 10:11 06/21/20 10:11 06/21/20 05:00 06/21/20 10:11 Oxygen Flow Rate (L/min) 2 Oxygen Delivery Method Room Air Weight: 85 kg Body Mass Index (BMI) 24.7 Sodium 136 mmol/L (136-145) 06/19/20 05:00 Potassium 4.2 mmol/L (3.5-5.1) 06/19/20 05:00 Chloride 101 mmol/L (98-107) 06/19/20 05:00 Carbon Dioxide 29.0 mmol/L (21.0-32.0) 06/19/20 05:00 Anion Gap 6 (5-15) 06/19/20 05:00 BUN 17 mg/dL (7-18) 06/19/20 05:00 Creatinine 0.66 mg/dL (0.70-1.30) L 06/19/20 05:00 Est GFR (MDRD) Af Amer 153 mL/min (>60) 06/19/20 05:00 Est GFR (MDRD) Non-Af 126 mL/min (>60) 06/19/20 05:00 BUN/Creatinine Ratio 25.6 RATIO (10-20) H 06/19/20 05:00 Glucose 109 mg/dL (74-106) H 06/19/20 05:00 Assessment/Plan: 1) Pain: Acetaminophen 1000mg po q6h prn pain 1-3, Tramadol 50mg po q6h prn for pain 4-5, Oxycodone 5mg po q4h prn for pain 6-10. Please continue to monitor prn usage and for signs/symptoms of increased/decreased pain. *2) Hyperlipidemia: Atorvastatin 20mg po qhs. I could not find a recent Lipid Panel in the pt's chart. Please consider a yearly Lipid Panel while the pt is on Atorvastatin. Thank you 3) BPH: Tamsulosin 0.4mg po daily. Please consider to monitor for signs/symptoms of urinary retention 4) Iron Deficiency Anemia: Iron Sulfate 325mg po daily. Pt's H & H are 9.4 and 28.2, RBC are 2.73. Please continue to monitor labs *5) DVT Prophylaxis. Apixaban 2.5mg po bid. Pt has history of anemia and is also on Aspirin 81mg po daily. Please continue to monitor pt for signs/symptoms of bleeding/worsened anemia. Thanks Psychotropic Medications: None Unnecessary Medications: None Bowel Regimen: Bisacodyl 10mg suppository daily prn, Miralax 17gm po daily, Senna/Docusate 2 tablets po bid, Milk of Magnesia 30ml po daily prn. Please continue to monitor prn usage and for signs/symptoms of constipation/diarrhea. Date of Note:: 06/21/20 - Provider Comments Provider responsibility: Provider responsible to enter orders to implement recommendations <Dion Glaser Chi - Last Filed: 06/23/20 11:33> Progress Note - Pharmacy Subjective: [] Objective: Allergies No Known Allergies Allergy (Verified 06/12/20 14:56) Current Medications Generic Name Dose Route Start Last Admin Trade Name Freq PRN Reason Stop Dose Admin Acetaminophen 1,000 mg 06/18/20 21:55 06/22/20 18:23 Acetaminophen 500 Mg Tablet PO 1,000 mg Q6H PRN PRN Administration Pain Score 1-3 Apixaban 2.5 mg 06/19/20 06:00 06/23/20 05:32 Apixaban 2.5 Mg Tablet PO 2.5 mg BID ROSA Administration Ascorbic Acid 1,000 mg 06/18/20 22:00 06/23/20 05:31 Ascorbic Acid 500 Mg Tablet PO 1,000 mg 4X/DAY ROSA Administration Aspirin 81 mg 06/19/20 08:00 06/23/20 08:35 Aspirin E.C. 81 Mg Tablet PO 81 mg DAILY@0800 [facility] Administration Atorvastatin Calcium 20 mg 06/19/20 22:00 06/22/20 20:30 Atorvastatin Calcium 20 Mg Tablet PO 20 mg QHS ROSA Administration Bisacodyl 10 mg 06/18/20 21:55 Bisacodyl 10 Mg Suppository RECTAL DAILY PRN Constipation Calamine/Phenol 1 applic 06/19/20 06:00 06/23/20 05:33 Menthol/Lanolin/Calamine/Znox 113 Gm Tube TOPICAL Not Given 0600,2200 [facility] Protocol Cholecalciferol 1,000 unit 06/19/20 06:00 06/23/20 05:32 Cholecalciferol (Vit D3) 1,000 Unit (25mcg) PO 1,000 unit DAILY ROSA Administration Cyanocobalamin 1,000 mcg 06/19/20 06:00 06/23/20 05:31 Cyanocobalamin 500 Mcg Tablet PO 1,000 mcg DAILY ROSA Administration Ferrous Sulfate 325 mg 06/19/20 12:00 06/22/20 11:45 Ferrous Sulfate 325 Mg Tablet PO 325 mg DAILY@1200 ROSA Administration Magnesium Hydroxide 30 ml 06/18/20 21:55 Magnesium Hydroxide 30 Ml Udc PO DAILY PRN Constipation Multivitamins/Minerals 1 tablet 06/19/20 08:00 06/23/20 08:35 Multivitamins,Ther W-Minerals Tablet PO 1 tablet DAILY@0800 [facility] Administration Nicotine 14 mg 06/19/20 06:00 06/23/20 05:35 Nicotine 14 Mg Patch TD 14 mg DAILY [facility] Administration Nutritional Formula (Lactose Free) 120 ml 06/19/20 06:00 06/23/20 05:31 Ensure Enlive 120 Ml Liquid PO 120 ml 4X/DAY [facility] Administration Oxycodone HCl 5 mg 06/18/20 21:24 06/22/20 18:24 Oxycodone 5 Mg Tablet PO 5 mg Q4H PRN PRN Administration Pain Score 6-10 Polyethylene Glycol 17 gm 06/19/20 06:00 06/23/20 05:33 Polyethylene Glycol 3350 17 Gm Packet PO Not Given DAILY [facility] Senna/Docusate Sodium 2 tablet 06/19/20 06:00 06/23/20 05:33 Senna/Docusate Sodium 1 Tablet PO Not Given BID [facility] Tamsulosin HCl 0.4 mg 06/19/20 17:30 06/22/20 18:26 Tamsulosin Hcl 0.4 Mg Capsule PO 0.4 mg DAILY@1730 [facility] Administration Tramadol HCl 50 mg 06/18/20 21:54 06/22/20 14:02 Tramadol 50 Mg Tablet PO 50 mg Q6H PRN PRN Administration Pain Score 4-5 Tuberculin PPD 5 tu 06/26/20 10:00 Tuberculin,Purif.Prot.Deriv. 50 Tu/Ml Vial ID 06/26/20 10:01 X1 ONE Problem List Nicotine abuse (Chronic) Debility (Acute) Closed left hip fracture (Acute) Hyperlipidemia (Chronic) Postoperative anemia (Acute) Vital Signs Temp Pulse Resp BP Pulse Ox 98.3 F 71 14 112/58 L 92 06/23/20 05:30 06/23/20 05:30 06/23/20 05:30 06/23/20 05:30 06/23/20 05:30 Oxygen Flow Rate (L/min) 2 Oxygen Delivery Method Room Air Weight: 85 kg Body Mass Index (BMI) 24.7 Sodium 136 mmol/L (136-145) 06/19/20 05:00 Potassium 4.2 mmol/L (3.5-5.1) 06/19/20 05:00 Chloride 101 mmol/L (98-107) 06/19/20 05:00 Carbon Dioxide 29.0 mmol/L (21.0-32.0) 06/19/20 05:00 Anion Gap 6 (5-15) 06/19/20 05:00 BUN 17 mg/dL (7-18) 06/19/20 05:00 Creatinine 0.66 mg/dL (0.70-1.30) L 06/19/20 05:00 Est GFR (MDRD) Af Amer 153 mL/min (>60) 06/19/20 05:00 Est GFR (MDRD) Non-Af 126 mL/min (>60) 06/19/20 05:00 BUN/Creatinine Ratio 25.6 RATIO (10-20) H 06/19/20 05:00 Glucose 109 mg/dL (74-106) H 06/19/20 05:00 Assessment/Plan: Psychotropic Medications: Unnecessary Medications: Bowel Regimen: - Provider Comments Provider responsibility: Provider responsible to enter orders to implement recommendations Provider Comments to Recommendations by Pharmacy: Agree
[2020-06-21 15:38] VITALS: BP 97/56; PULSE 87; RESP 16; TEMP 36.4; O2SAT 93
[2020-06-21] MEDS: oxyCODONE 5 MG Tablet PO ×2 (16:35→20:05)
[2020-06-21] MEDS: Acetaminophen 500 MG Tablet 1000 MG PO (16:35)
[2020-06-21] MEDS: Tamsulosin HCl 0.4 MG Capsule PO (16:47)
[2020-06-21] MEDS: Atorvastatin Calcium 20 MG Tablet PO (20:02)
[2020-06-22 04:00] VITALS: BP 106/57; PULSE 78; RESP 18; TEMP 36.8; O2SAT 94
[2020-06-22] MEDS: oxyCODONE 5 MG Tablet PO ×3 (05:52→18:24)
[2020-06-22] MEDS: Ascorbic Acid 500 MG Tablet 1000 MG PO ×4 (05:53→20:30)
[2020-06-22] MEDS: Senna/Docusate Sodium 1 Tablet 2 TABLET PO (05:53)
[2020-06-22] MEDS: Cyanocobalamin 500 MCG Tablet 1000 MCG PO (05:53)
[2020-06-22] MEDS: Polyethylene Glycol 3350 17 GM PACKET PO (05:54)
[2020-06-22] MEDS: Menthol/Lanolin/Calamine/Znox 113 GM Tube 1 APPLIC TOPICAL ×2 (05:59→20:31)
[2020-06-22] MEDS: Multivitamins,Ther W-Minerals Tablet 1 TABLET PO (07:47)
[2020-06-22] MEDS: Aspirin E.C. 81 MG Tablet PO (07:47)
[2020-06-22] MEDS: traMADol 50 MG Tablet PO ×2 (07:47→14:02)
[2020-06-22] MEDS: Acetaminophen 500 MG Tablet 1000 MG PO ×2 (11:43→18:23)
[2020-06-22] MEDS: Ferrous Sulfate 325 MG Tablet PO (11:45)
[2020-06-22 14:31] VITALS: BP 117/64; PULSE 86; RESP 18; TEMP 36.6; O2SAT 96
[2020-06-22] MEDS: Tamsulosin HCl 0.4 MG Capsule PO (18:26)
[2020-06-22] MEDS: APIXABAN 2.5 MG TABLET PO (18:27)
[2020-06-22] MEDS: Atorvastatin Calcium 20 MG Tablet PO (20:30)
[2020-06-23 05:30] VITALS: BP 112/58; PULSE 71; RESP 14; TEMP 36.8; O2SAT 92
[2020-06-23] MEDS: Cyanocobalamin 500 MCG Tablet 1000 MCG PO (05:31)
[2020-06-23] MEDS: Ascorbic Acid 500 MG Tablet 1000 MG PO ×4 (05:31→21:04)
[2020-06-23] MEDS: APIXABAN 2.5 MG TABLET PO ×2 (05:32→16:15)
[2020-06-23] MEDS: Multivitamins,Ther W-Minerals Tablet 1 TABLET PO (08:35)
[2020-06-23] MEDS: Aspirin E.C. 81 MG Tablet PO (08:35)
[2020-06-23] MEDS: Ferrous Sulfate 325 MG Tablet PO (11:48)
[2020-06-23] MEDS: traMADol 50 MG Tablet PO ×2 (13:59→21:10)
[2020-06-23 14:02] VITALS: PULSE 84; RESP 16; O2SAT 94
[2020-06-23 15:56] VITALS: BP 111/58; PULSE 86; RESP 16; TEMP 36.9; O2SAT 92
[2020-06-23] MEDS: Tamsulosin HCl 0.4 MG Capsule PO (16:12)
[2020-06-23] MEDS: Atorvastatin Calcium 20 MG Tablet PO (21:04)
[2020-06-23] MEDS: Menthol/Lanolin/Calamine/Znox 113 GM Tube 1 APPLIC TOPICAL (21:13)
--- NOTE | 2020-06-23 21:32 | NURSING ---
Pt expressed some frustration about not having therapy today, stateshe thinks he could be doing more and making more progress, explained to pt about restrictions d/t covid, assisted pt to walk the length of his room twice, pt very appreciative, encouraged pt to speak with therapy in the morning about doing more.
[2020-06-23] MEDS: oxyCODONE 5 MG Tablet PO (22:43)
[2020-06-24 05:26] VITALS: BP 100/55; PULSE 80; RESP 16; TEMP 36.5; O2SAT 91
[2020-06-24] MEDS: Cyanocobalamin 500 MCG Tablet 1000 MCG PO (05:29)
[2020-06-24] MEDS: APIXABAN 2.5 MG TABLET PO ×2 (05:29→16:42)
[2020-06-24] MEDS: Ascorbic Acid 500 MG Tablet 1000 MG PO ×4 (05:30→20:49)
[2020-06-24] MEDS: Multivitamins,Ther W-Minerals Tablet 1 TABLET PO (08:20)
[2020-06-24] MEDS: Aspirin E.C. 81 MG Tablet PO (08:20)
[2020-06-24] MEDS: traMADol 50 MG Tablet PO (10:11)
[2020-06-24] MEDS: Acetaminophen 500 MG Tablet 1000 MG PO (11:38)
[2020-06-24] MEDS: Ferrous Sulfate 325 MG Tablet PO (11:38)
--- NOTE | 2020-06-24 12:04 | NURSING ---
CALLED DR CARRERA'S OFFICE TO VERIFY IF R' CAN SHOWER. SPOKE WITH CL[employer]ICAL [employer]MENT [employer]TER AND STATED ITS OKAY TO SHOWER.
[2020-06-24 14:42] VITALS: BP 107/59; PULSE 64; RESP 14; TEMP 36.2; O2SAT 94
[2020-06-24] MEDS: Tamsulosin HCl 0.4 MG Capsule PO (16:42)
[2020-06-24] MEDS: Atorvastatin Calcium 20 MG Tablet PO (20:52)
[2020-06-25] MEDS: Ascorbic Acid 500 MG Tablet 1000 MG PO ×4 (07:13→20:45)
[2020-06-25] MEDS: Cyanocobalamin 500 MCG Tablet 1000 MCG PO (07:13)
[2020-06-25] MEDS: Aspirin E.C. 81 MG Tablet PO (07:14)
[2020-06-25] MEDS: APIXABAN 2.5 MG TABLET PO ×2 (07:14→17:04)
[2020-06-25] MEDS: Multivitamins,Ther W-Minerals Tablet 1 TABLET PO (07:14)
[2020-06-25 07:16] VITALS: BP 117/67; PULSE 77; RESP 16; TEMP 37.2; O2SAT 93
[2020-06-25] MEDS: traMADol 50 MG Tablet PO (10:43)
[2020-06-25] MEDS: Ferrous Sulfate 325 MG Tablet PO (11:20)
[2020-06-25 14:28] VITALS: BP 123/64; PULSE 95; RESP 16; TEMP 36.6; O2SAT 94
--- NOTE | 2020-06-25 15:31 | NURSING ---
Resident and family updated on COVID status on the unit.
[2020-06-25] MEDS: Tamsulosin HCl 0.4 MG Capsule PO (17:04)
[2020-06-25] MEDS: Acetaminophen 500 MG Tablet 1000 MG PO (17:07)
[2020-06-25] MEDS: Atorvastatin Calcium 20 MG Tablet PO (20:46)
[2020-06-26 06:06] LABS: Absolute Neutrophil Count 5.7 X10^3/uL (2.0-7.7); Basophil# 0.07 X10^3/uL; Basophil% 0.7 % (0-1); Eosinophil# 0.39 X10^3/uL; Hematocrit 32.5 % (40-54); Lymphocyte % 21.5 % (19-41); Mean Corp Hgb Conc 30.8 g/dL (32-36); Mean Corpuscular Hgb 33.7 pg (27.0-32.0); Mean Corpuscular Volume 109.4 fL (80-94); Monocyte# 1.37 X10^3/uL; NRBC Flagged by Analyzer 0 % (0-5); Neutrophil # 5.74 X10^3/uL (2.7-7.7); Neutrophil % 58.7 % (47-70); Platelet Count 685 K/mm3 (150-450); RBC Distribution Width CV 15.1 % (11.6-14.6); Red Blood Count 2.97 M/mm3 (4.6-6.2); White Blood Count 9.8 K/mm3 (4.4-11.0)
[2020-06-26] MEDS: APIXABAN 2.5 MG TABLET PO ×2 (06:19→16:25)
[2020-06-26] MEDS: Ascorbic Acid 500 MG Tablet 1000 MG PO ×4 (06:20→21:29)
[2020-06-26] MEDS: Cyanocobalamin 500 MCG Tablet 1000 MCG PO (06:20)
[2020-06-26 06:26] VITALS: BP 119/61; PULSE 70; RESP 16; TEMP 36.2; O2SAT 93
[2020-06-26 06:29] LABS: Anion Gap 3 (5-15); BUN 18 mg/dL (7-18); BUN/Creat Ratio 27.8 RATIO (10-20); Calcium,Total 8.5 mg/dL (8.5-10.1); Chloride 107 mmol/L (98-107); Creatinine, Serum 0.65 mg/dL (0.70-1.30); EST Glomerular Filtration Rate 130 mL/min (>60); Est Glom Filt Rate - Afr Amer 158 mL/min (>60); Glucose 91 mg/dL (74-106); Potassium 4.1 mmol/L (3.5-5.1); Sodium Level 140 mmol/L (136-145)
[2020-06-26] MEDS: Multivitamins,Ther W-Minerals Tablet 1 TABLET PO (08:22)
[2020-06-26] MEDS: Aspirin E.C. 81 MG Tablet PO (08:22)
[2020-06-26] MEDS: Tuberculin,Purif.prot.deriv. 50 TU/ML Vial 5 ML ID (10:05)
[2020-06-26] MEDS: Ferrous Sulfate 325 MG Tablet PO (11:15)
--- NOTE | 2020-06-26 11:43 | CASEMGMT ---
Social Work IDT met with patient and via conference call for care plan meeting. Discussed patient's progress in therapy. Pt is min for bed mobility, CGA-SBA for sit to stands and tx with FWW, and to ambulate 100ft with FWW. Pt is CGA to step 8x on box step with FWW. Pt is SBA for toileting, set up seated for UE ADLS, SBA with AE for LE ADLs. Pt has good intake, DC'd ensure, weight is stable. Pt is out of isolation 07/02. Explained [facility] with NRD 07/01 and continued stay is not guaranteed. pt has 4 steps to enter home and flight of steps to 2nd floor with bathroom. Pt is requesting to DC home 06/27. pt states he has his son and neighbor assistance at home. IDT agreeable to DC. Explained outpatient therapy vs HHC. Pt would like to start with HHC then 'graduate' to outpatient. Referral made for [facility] PT. SOC 07/01. No DME needs. to transport. Plan: DC home with 06/27 with [facility] PT. Lea Ferrell, YI [id number]
[2020-06-26] MEDS: oxyCODONE 5 MG Tablet PO (13:46)
[2020-06-26 14:29] VITALS: BP 108/59; PULSE 84; RESP 16; TEMP 36.8; O2SAT 92
[2020-06-26] MEDS: Tamsulosin HCl 0.4 MG Capsule PO (16:25)
--- NOTE | 2020-06-26 20:08 | DCINST_ITS ---
- Discharge Diagnoses Current Active Problems: Current Active and Chronic Problems Nicotine abuse (Chronic) Debility (Acute) Closed left hip fracture (Acute) Hyperlipidemia (Chronic) Postoperative anemia (Acute) You will use the following diet at home:: No restrictions, Regular Your food should be the consistency of: Regular Your liquids should be the consistency of: Regular/Thin Discharge Activity: Return to Normal Activity, May Shower, Use Walker Weight Bearing Status: Weight bearing as tolerated Call your doctor if you observe: Fever of 101 or Higher, Inability to urinate, Inability to have a bowel movement, Shortness of breath, Chest pain, Uncontrolled pain Allergies/Adverse Reactions: Allergies No Known Allergies Allergy (Verified 06/12/20 14:56) Medications to take at Discharge Ascorbic Acid [C-1000] 1,000 mg PO 4X/DAY 06/12/20 Aspirin E.C. [Ecotrin] 81 mg PO DAILY@0800 06/12/20 Atorvastatin Calcium [Lipitor] 20 mg PO DAILY 06/12/20 Cholecalciferol (Vitamin D3) [Vitamin D3] 1,000 unit PO DAILY 06/12/20 Cyanocobalamin (Vitamin B-12) [Vitamin B-12] 1,000 mcg PO DAILY 06/12/20 Multivitamin with Minerals [Multiple Vitamin] 1 tab PO DAILY 06/12/20 Vitamin A 8,000 unit PO DAILY 06/12/20 Acetaminophen [Tylenol] 1,000 mg PO Q6H PRN PRN tablet 06/26/20 Apixaban [Eliquis] 2.5 mg PO BID #34 tab 06/26/20 Ferrous Sulfate 325 mg PO DAILY@1200 #30 tab 06/26/20 Menthol/Lanolin/Calamine/Znox [Calmoseptine Ointment] 1 applic TOPICAL 0600,2200 tube 06/26/20 Nicotine [Nicoderm] 14 mg TD DAILY PRN #30 patch 06/26/20 Tamsulosin HCl [Flomax] 0.4 mg PO DAILY@1730 #30 cap 06/26/20 traMADol [Ultram] 50 mg PO Q6H PRN PRN #28 tablet 06/26/20 The following prescriptions were given: Apixaban [Eliquis] 2.5 mg PO BID #34 tab Transmission Status: Pending to [facility] #30 Ferrous Sulfate 325 mg PO DAILY@1200 #30 tab Transmission Status: Pending to [facility] #30 Tamsulosin HCl [Flomax] 0.4 mg PO DAILY@1730 #30 cap Transmission Status: Pending to [facility] #30 Nicotine [Nicoderm] 14 mg TD DAILY PRN #30 patch PRN Reason: Nicotine Craving Transmission Status: Pending to [facility] #30 traMADol [Ultram] 50 mg PO Q6H PRN PRN #28 tablet PRN Reason: Pain Score 4-5 Transmission Status: Sent to [facility] #30 Primary Care Physician: Inocencio Black MD [Primary Care Provider] - Please follow up with your Primary Care Physician in: 1 week. Test Results: Test results from this visit will be discussed in further detail at your follow- up appointment, if applicable. Please Follow Up With: Trevin DECKER (Orthopedics) When: 06/24/2020-- Needs Appointment Proposed Discharge Date: 06/27/20
--- NOTE | 2020-06-26 20:09 | DS.PCM_ITS ---
Discharge Date and Diagnosis - Problem List Patient Problems: Active and Suspected Problems Debility (Acute) Closed left hip fracture (Acute) Postoperative anemia (Acute) Date of Admission: 06/18/20 Date of Discharge: 06/27/20 - Primary Discharge Diagnosis Acute Problems: Active Problems Debility (Acute) Closed left hip fracture (Acute) Postoperative anemia (Acute) - Secondary Discharge Diagnosis Chronic Problems: Chronic Problems Nicotine abuse (Chronic) Hyperlipidemia (Chronic) Hospital Course and Treatment Imaging Results: 06/18/20 21:30 Diet: Regular - General Food consistency:: Regular Liquid Consistency:: Regular/Thin Type of Dietary Supplement:: Is pt able to select menu?: Yes Labs (Last 48 Hours) 06/26/20 06/26/20 05:30 05:30 WBC 9.8 RBC 2.97 L Hgb 10.0 L Hct 32.5 L MCV 109.4 H MCH 33.7 H MCHC 30.8 L RDW Std Deviation 59.0 H RDW Coeff of Ena 15.1 H Plt Count 685 H MPV 9.0 Immature Gran % (Auto) 1.100 H Neut % (Auto) 58.7 Lymph % (Auto) 21.5 Sullivan % (Auto) 14.0 H Eos % (Auto) 4.0 Baso % (Auto) 0.7 Absolute Neuts (auto) 5.7 Absolute Lymphs (auto) 2.10 Nucleated RBC % 0 Sodium 140 Potassium 4.1 Chloride 107 Carbon Dioxide 30.0 Anion Gap 3 L BUN 18 Creatinine 0.65 L Estim Creat Clear Calc 79.90 Est GFR (MDRD) Af Amer 158 Est GFR (MDRD) Non-Af 130 BUN/Creatinine Ratio 27.8 H Glucose 91 Calcium 8.5 Operations: None, - - ORIF L Hip Procedures: None Summary of Care Provided: The patient is a 69 year old Male with below past medical history hospitalized for left hip fracture, underwent ORIF left hip with gamma nail 06/13/20, postoperative course complicated left medial thigh pain, DVT ruled out, postoperative anemia requiring iron, admitted to TCU with debility, here for rehabilitation, strengthening, prior to discharge home with . Eliquis 2.5MG twice daily for DVT prophylaxis. Iron added for postoperative anemia. Discharge home with , [facility] PT. Patient Problems: Active and Suspected Problems Debility (Acute) Closed left hip fracture (Acute) Postoperative anemia (Acute) - Physical Exam Vitals/I&O's: Vital Signs Temp Pulse Resp BP Pulse Ox 98.2 F 84 16 108/59 L 92 06/26/20 14:29 06/26/20 14:29 06/26/20 14:29 06/26/20 14:29 06/26/20 14:29 Oxygen Flow Rate (L/min) 2 Oxygen Delivery Method Room Air Weight: 84.085 kg Body Mass Index (BMI) 24.7 Intake and Output for Last 24 Hours 06/24/20 06/25/20 06/26/20 23:59 23:59 23:59 Intake Total 1280 / 1280 600 / 600 600 / 600 Balance 1280 / 1280 600 / 600 600 / 600 Microbiology Past 72 Hours 06/24/20 12:30 Nasal Secretion SARS-CoV-2 Antigen (Rapid) - Final Laboratory Results 06/26/20 05:30: WBC 9.8, RBC 2.97 L, Hgb 10.0 L, Hct 32.5 L, MCV 109.4 H, MCH 33.7 H, MCHC 30.8 L, RDW Std Deviation 59.0 H, RDW Coeff of Ena 15.1 H, Plt Count 685 H, MPV 9.0, Immature Gran % (Auto) 1.100 H, Neut % (Auto) 58.7, Lymph % (Auto) 21.5, Sullivan % (Auto) 14.0 H, Eos % (Auto) 4.0, Baso % (Auto) 0.7, Absolute Neuts (auto) 5.7, Absolute Lymphs (auto) 2.10, Nucleated RBC % 0 06/26/20 05:30: Sodium 140, Potassium 4.1, Chloride 107, Carbon Dioxide 30.0, Anion Gap 3 L, BUN 18, Creatinine 0.65 L, Estim Creat Clear Calc 79.90, Est GFR (MDRD) Af Amer 158, Est GFR (MDRD) Non-Af 130, BUN/Creatinine Ratio 27.8 H, Glucose 91, Calcium 8.5 Current Medications Acetaminophen (Acetaminophen 500 Mg Tablet) 1,000 mg PO Q6H PRN PRN PRN Reason: Pain Score 1-3 Last Admin: 06/25/20 17:07 Dose: 1,000 mg Documented by: Apixaban (Apixaban 2.5 Mg Tablet) 2.5 mg PO BID [facility] Last Admin: 06/26/20 16:25 Dose: 2.5 mg Documented by: Ascorbic Acid (Ascorbic Acid 500 Mg Tablet) 1,000 mg PO 4X/DAY [facility] Last Admin: 06/26/20 16:25 Dose: 1,000 mg Documented by: Aspirin (Aspirin E.C. 81 Mg Tablet) 81 mg PO DAILY@0800 [facility] Last Admin: 06/26/20 08:22 Dose: 81 mg Documented by: Atorvastatin Calcium (Atorvastatin Calcium 20 Mg Tablet) 20 mg PO QHS [facility] Last Admin: 06/25/20 20:46 Dose: 20 mg Documented by: Bisacodyl (Bisacodyl 10 Mg Suppository) 10 mg RECTAL DAILY PRN PRN Reason: Constipation Calamine/Phenol (Menthol/Lanolin/Calamine/Znox 113 Gm Tube) 1 applic TOPICAL 0600,2200 [facility]; Protocol Last Admin: 06/26/20 06:19 Dose: Not Given Documented by: Cholecalciferol (Cholecalciferol (Vit D3) 1,000 Unit (25mcg)) 1,000 unit PO DAILY [facility] Last Admin: 06/26/20 06:20 Dose: 1,000 unit Documented by: Cyanocobalamin (Cyanocobalamin 500 Mcg Tablet) 1,000 mcg PO DAILY [facility] Last Admin: 06/26/20 06:20 Dose: 1,000 mcg Documented by: Ferrous Sulfate (Ferrous Sulfate 325 Mg Tablet) 325 mg PO DAILY@1200 [facility] Last Admin: 06/26/20 11:15 Dose: 325 mg Documented by: Magnesium Hydroxide (Magnesium Hydroxide 30 Ml Ud) 30 ml PO DAILY PRN PRN Reason: Constipation Multivitamins/Minerals (Multivitamins,Ther W-Minerals Tablet) 1 tablet PO DAILY@0800 [facility] Last Admin: 06/26/20 08:22 Dose: 1 tablet Documented by: Nicotine (Nicotine 14 Mg Patch) 14 mg TD DAILY [facility] Last Admin: 06/26/20 06:20 Dose: 14 mg Documented by: Oxycodone HCl (Oxycodone 5 Mg Tablet) 5 mg PO Q4H PRN PRN PRN Reason: Pain Score 6-10 Last Admin: 06/26/20 13:46 Dose: 5 mg Documented by: Polyethylene Glycol (Polyethylene Glycol 3350 17 Gm Packet) 17 gm PO DAILY [facility] Last Admin: 06/26/20 06:17 Dose: Not Given Documented by: Senna/Docusate Sodium (Senna/Docusate Sodium 1 Tablet) 2 tablet PO BID [facility] Last Admin: 06/26/20 16:25 Dose: Not Given Documented by: Tamsulosin HCl (Tamsulosin Hcl 0.4 Mg Capsule) 0.4 mg PO DAILY@1730 [facility] Last Admin: 06/26/20 16:25 Dose: 0.4 mg Documented by: Tramadol HCl (Tramadol 50 Mg Tablet) 50 mg PO Q6H PRN PRN PRN Reason: Pain Score 4-5 Last Admin: 06/25/20 10:43 Dose: 50 mg Documented by: Discharge Diet: No Restrictions Discharge Activity: Return to Normal Activity, May Shower, Use Walker Weight Bearing Status: Weight bearing as tolerated Call your doctor if you observe: Fever of 101 or Higher, Inability to urinate, Inability to have a bowel movement, Shortness of breath, Chest pain, Uncontrolled pain Home Medications: Medications to take at Discharge Ascorbic Acid [C-1000] 1,000 mg PO 4X/DAY 06/12/20 Aspirin E.C. [Ecotrin] 81 mg PO DAILY@0800 06/12/20 Atorvastatin Calcium [Lipitor] 20 mg PO DAILY 06/12/20 Cholecalciferol (Vitamin D3) [Vitamin D3] 1,000 unit PO DAILY 06/12/20 Cyanocobalamin (Vitamin B-12) [Vitamin B-12] 1,000 mcg PO DAILY 06/12/20 Multivitamin with Minerals [Multiple Vitamin] 1 tab PO DAILY 06/12/20 Vitamin A 8,000 unit PO DAILY 06/12/20 Acetaminophen [Tylenol] 1,000 mg PO Q6H PRN PRN tablet 06/26/20 Apixaban [Eliquis] 2.5 mg PO BID #34 tab 06/26/20 Ferrous Sulfate 325 mg PO DAILY@1200 #30 tab 06/26/20 Menthol/Lanolin/Calamine/Znox [Calmoseptine Ointment] 1 applic TOPICAL 0600,2200 tube 06/26/20 Nicotine [Nicoderm] 14 mg TD DAILY PRN #30 patch 06/26/20 Tamsulosin HCl [Flomax] 0.4 mg PO DAILY@1730 #30 cap 06/26/20 traMADol [Ultram] 50 mg PO Q6H PRN PRN #28 tablet 06/26/20 Following Prescriptions Were Given to Patient: Apixaban [Eliquis] 2.5 mg PO BID #34 tab Transmission Status: Pending to [facility] #30 Ferrous Sulfate 325 mg PO DAILY@1200 #30 tab Transmission Status: Pending to [facility] #30 Tamsulosin HCl [Flomax] 0.4 mg PO DAILY@1730 #30 cap Transmission Status: Pending to [facility] #30 Nicotine [Nicoderm] 14 mg TD DAILY PRN #30 patch PRN Reason: Nicotine Craving Transmission Status: Pending to [facility] #30 traMADol [Ultram] 50 mg PO Q6H PRN PRN #28 tablet PRN Reason: Pain Score 4-5 Transmission Status: Sent to [facility] #30 Primary Care Physician: Inocencio Black MD [Primary Care Provider] - Please follow up with your Primary Care Physician in: 1 week. Please Follow Up With: Trevin DECKER (Orthopedics) When: 06/24/2020-- Needs Appointment Disposition: Home with Home Health Minutes spent on discharge:: 35 Patient Condition:: Stable Medical Necessity - Tobacco Use Smoking Status: Current every day smoker Tobacco Use: Cigarettes Meaningful Use Info Meaningful Use Diagnoses (Choose all that apply): None applicable
[2020-06-26] MEDS: Atorvastatin Calcium 20 MG Tablet PO (21:29)
[2020-06-27 06:35] VITALS: BP 115/63; PULSE 81; RESP 16; TEMP 36.9; O2SAT 91
[2020-06-27] MEDS: Ascorbic Acid 500 MG Tablet 1000 MG PO (06:37)
[2020-06-27] MEDS: Cyanocobalamin 500 MCG Tablet 1000 MCG PO (06:38)
[2020-06-27] MEDS: APIXABAN 2.5 MG TABLET PO (06:38)
[2020-06-27] MEDS: Multivitamins,Ther W-Minerals Tablet 1 TABLET PO (07:57)
[2020-06-27] MEDS: Aspirin E.C. 81 MG Tablet PO (07:57)
[2020-06-27 09:18] VITALS: PULSE 107; RESP 18; O2SAT 96
[2020-06-27 10:14] VITALS: BP 105/62; PULSE 107; RESP 18; TEMP 36.9; O2SAT 96
--- NOTE | 2020-07-01 10:26 | MDS.RN ---
information for the mds was obtained from review of the clinical record, interview of resident, staff, and direct observation of resident's care.
== END 2020-06-27 10:30 | disposition home health service (06) | DRG 561 ==
PROVIDERS: Admitting Provider Family Medicine Geriatric Medicine; PCP Family Medicine; Visit Provider Family Medicine Geriatric Medicine
DX: S72.142D Displaced intertrochanteric fracture of left femur, subsequent encounter for closed fracture with routine healing (principal); E78.5 Hyperlipidemia, unspecified; F17.210 Nicotine dependence, cigarettes, uncomplicated; N40.0 Benign prostatic hyperplasia without lower urinary tract symptoms; D50.9 Iron deficiency anemia, unspecified; E55.9 Vitamin D deficiency, unspecified; W01.0XXD Fall on same level from slipping, tripping and stumbling without subsequent striking against object, subsequent encounter
CPT/HCPCS: 36415; 80048; 85025; 87426; 97110; 97116; 97162; 97166; 97530; 97535; 97802; 99406

== ENCOUNTER 2021-04-11 10:33 | Emergency (ER) | payer MEDICARE, SELFPAY ==
[2021-04-11 10:37] VITALS: BP 143/98; PULSE 78; RESP 16; TEMP 36.5; O2SAT 97; BMI 24.4
--- NOTE | 2021-04-11 11:10 | EKG12_ITS ---
Test Reason : AFIB Blood Pressure : / mmHG Vent. Rate : 134 BPM Atrial Rate : 134 BPM P-R Int : 000 ms QRS Dur : 108 ms QT Int : 322 ms P-R-T Axes : 000 -64 113 degrees QTc Int : 480 ms Atrial fibrillation Left anterior fascicular block Septal infarct , age undetermined ST & T wave abnormality, consider lateral ischemia Abnormal ECG Confirmed by CLIVE POLK, TONY ([id number]), editor publications KHAI GOTTLIEB ([id number]) on 04/15/2021 7:51:48 AM Referred By: /BB Confirmed By:TONY DUFFY MD
--- NOTE | 2021-04-11 11:11 | EX.ED.DYSGE1 ---
HPI History of Present Illness Chief Complaint: Palpitations Informant: patient Onset/Context/Timing Onset: Weeks (2) Context: Gradual Onset Timing: Intermittent Quality: Racing and irregular Location: Heart/chest Current Severity: Mild Maximum Severity: Moderate Worsened by: Nothing in particular Relieved by: Nothing in particular Associated Symptoms Associated Symptoms: none Narrative Narrative: Intermittent symptoms for several weeks, was at his PCPs office today and noticed to be tachycardic and irregular and sent to the emergency department. He denies any chest discomfort, dyspnea, lightheadedness or syncope. No recent illness. No leg pain or swelling. No history of DVT or PE. No history of heart problems, but he had chest pain about 20 years ago and as a result had a heart catheterization, he states a 40% lesion was noted, but he did not receive any PCI and he was placed on medical management. Has had no stress test since then. States he had an echocardiogram in the process of all of that, and had no major valvular abnormalities. [facility] Medical History (Updated 04/11/21 @ 13:[address] David Quinones MD) High cholesterol History of coronary artery disease Home Medications ascorbic acid (vitamin C) 1,000 mg PO 4X/DAY 06/12/20 [History Last Taken 06/12/20] aspirin 81 mg PO DAILY@0800 06/12/20 [History Last Taken 06/10/20] atorvastatin 20 mg PO DAILY 06/12/20 [History Last Taken 06/17/20 20:22] cholecalciferol (vitamin D3) 1,000 unit PO DAILY 06/12/20 [History Last Taken 06/12/20] cyanocobalamin (vitamin B-12) 1,000 mcg PO DAILY 06/12/20 [History Last Taken 06/12/20] multivitamin with minerals 1 tab PO DAILY 06/12/20 [History Last Taken 06/12/20] vitamin A 8,000 unit PO DAILY 06/12/20 [History Last Taken 06/12/20] acetaminophen 1,000 mg PO Q6H PRN PRN tab 06/26/20 [Rx Last Taken Unknown] apixaban 2.5 mg PO BID #34 tab 06/26/20 [Rx Last Taken Unknown] ferrous sulfate 325 mg PO DAILY@1200 #30 tab 06/26/20 [Rx Last Taken Unknown] menthol-zinc oxide 1 applic TOPICAL 0600,2200 tube 06/26/20 [Rx Last Taken Unknown] nicotine 14 mg TD DAILY PRN #30 patch 06/26/20 [Rx Last Taken Unknown] tamsulosin 0.4 mg PO DAILY@1730 #30 cap 06/26/20 [Rx Last Taken Unknown] tramadol 50 mg PO Q6H PRN PRN #28 tab 06/26/20 [Rx Last Taken Unknown] apixaban [Eliquis] 5 mg PO BID 30 Days #60 tab 04/11/21 [Rx Last Taken Unknown] diltiazem HCl 120 mg PO DAILY #30 cap 04/11/21 [Rx Last Taken Unknown] metoprolol tartrate 25 mg PO BID #60 tab 04/11/21 [Rx Last Taken Unknown] Allergy/AdvReac Type Severity Reaction Status Date / Time No Known Allergies Allergy Verified 04/11/21 10:35 Social History Smoking Status: Current every day smoker tobacco type: cigarettes ROS ROS ED Constitutional Constitutional ED: Denies chills or fever(s) Eyes Eyes: Denies change in vision or diplopia ENT ENT ED: Denies rhinorrhea or sore throat Cardiovascular Cardiovascular: Reports irregular heart rhythm and palpitations; Denies chest pain, dyspnea on exertion or edema Respiratory/Chest Respiratory/Chest: Denies cough or dyspnea Gastrointestinal Gastrointestinal: Denies abdominal pain, diarrhea, nausea or vomiting Genitourinary Genitourinary ED: Denies dysuria or hematuria Musculoskeletal Musculoskeletal: Denies back pain or neck pain Integumentary Denies abscess or rash Neurologic Neurologic: Denies headache(s), paresthesias or weakness Psychiatric Psychiatric: Denies anxiety or suicidal thoughts EXAM Physical Exam Const Vital Signs: 04/11/21 10:37 04/11/21 11:38 04/11/21 11:43 Temperature 97.7 F L Temperature Source Temporal Pulse Rate 78 119 H 83 Respiratory Rate 16 Blood Pressure 143/98 H Blood Pressure Mean 113 Pulse Ox 97 Oxygen Delivery Method Room Air Positive well nourished and well developed General Appearance ED: well developed and NAD HEENT Reports moist mucous membranes normocephalic and atraumatic Eyes PERRL and EOMs intact bilaterally Neck full ROM and supple Resp normal respiratory effort and clear to auscultation bilaterally Cardio regular rhythm and no murmurs Rate: tachycardic Rhythm: abnormal rhythm irregularly irregular GI non-tender and non-distended Auscultation: normoactive bowel sounds Palpation: soft Back/Spine no CVA tenderness General Back: other FROM Extremity normal to inspection and no calf tenderness General Extremety ED: Negative for edema, pulses abnormal or tenderness General Extremity: Negative for edema or pulses abnormal Neuro oriented x3, CN's II-XII intact bilaterally and no sensory deficits noted Sensorium / Orientation: awake and alert Motor Exam: strength 5/5 throughout Skin no rashes or lesions noted and no wounds MDM MDM MDM Narrative Medical decision making narrative: Patient in A. fib with RVR, hemodynamically stable with it. He was given Cardizem 20 mg IV push, this rate controlled him well in the 70-80s, and he felt better with no palpitations present. Discussed with Dr. Garner, he agrees with outpatient follow-up and recommends prescribing metoprolol 25 mg twice daily, Cardizem CD 120 mg once daily, and Eliquis. Discussed with patient for follow-up. Lab Data Attestation: I reviewed the patient's lab results. Labs: Laboratory Results - last 24 hr 04/11/21 04/11/21 11:11 11:11 WBC 10.7 RBC 4.35 L Hgb 14.8 Hct 44.1 MCV 101.4 H MCH 34.0 H MCHC 33.6 RDW Std Deviation 49.8 H RDW Coeff of Ena 13.2 Plt Count 290 MPV 9.6 Immature Gran % (Auto) 0.300 Neut % (Auto) 63.7 Lymph % (Auto) 21.1 [place] % (Auto) 12.8 H Eos % (Auto) 1.4 Baso % (Auto) 0.7 Absolute Neuts (auto) 6.8 Absolute Lymphs (auto) 2.25 Nucleated RBC % 0 Sodium 140 Potassium 4.1 Chloride 107 Carbon Dioxide 31.0 Anion Gap 2 L BUN 18 Creatinine 0.86 Estim Creat Clear Calc 91.62 Est GFR (MDRD) Af Amer 113 Est GFR (MDRD) Non-Af 93 BUN/Creatinine Ratio 20.9 H Glucose 115 H Calcium 9.3 Troponin I High Sens 11 EKG Initial EKG: Attestation: I personally reviewed and interpreted this EKG as follows: Interpretation: No Acute Injury Pattern, Atrial Fibrillation (With RVR) and Non-Specific ST Changes Prior EKG tracings: available for review Prior: Changed (NSR w/ PAC in 2019) Discharge Plan Triage Chief Complaint: Palpitations ED Provider: David Quinones Dx/Rx/DC Orders Clinical Impression: Atrial fibrillation with RVR, History of coronary artery disease Instructions: ED AFIB Prescriptions: New diltiazem HCl 120 mg capsule,extended release 24 hr 120 mg PO DAILY Qty: 30 RF: 0 metoprolol tartrate 25 mg tablet 25 mg PO BID Qty: 60 RF: 0 Eliquis 5 mg tablet 5 mg PO BID 30 Days Qty: 60 RF: 0 No Action ascorbic acid (vitamin C) 1,000 MG tablet 1,000 mg PO 4X/DAY RF: 0 vitamin A 8,000 UNIT capsule 8,000 unit PO DAILY RF: 0 atorvastatin 20 MG tablet 20 mg PO DAILY RF: 0 aspirin 81 MG tablet 81 mg PO DAILY@0800 RF: 0 multivitamin with minerals 1 EACH tablet 1 tab PO DAILY RF: 0 cholecalciferol (vitamin D3) 25 MCG capsule 1,000 unit PO DAILY RF: 0 cyanocobalamin (vitamin B-12) 1,000 MCG capsule 1,000 mcg PO DAILY RF: 0 tramadol 50 MG tablet 50 mg PO Q6H PRN PRN (Reason: Pain Score 4-5) Qty: 28 RF: 0 acetaminophen 500 MG tablet 1,000 mg PO Q6H PRN PRN (Reason: Pain Score 1-3) RF: 0 menthol-zinc oxide 1 APPLIC ointment 1 applic TOPICAL 0600,2200 RF: 0 nicotine 14 MG patch 14 mg TD DAILY PRN (Reason: Nicotine Craving) Qty: 30 RF: 0 tamsulosin 0.4 MG capsule 0.4 mg PO DAILY@1730 Qty: 30 RF: 0 ferrous sulfate 325 MG tablet 325 mg PO DAILY@1200 Qty: 30 RF: 0 apixaban 2.5 MG tablet 2.5 mg PO BID Qty: 34 RF: 0 Primary Care Provider: Inocencio Black Referrals: Westley Garner MD [STAFF PHYSICIAN] - As soon as possible (call for appt) Inocencio Black MD [Primary Care Provider] - Disposition Disposition: Home, Self Care
[2021-04-11 11:20] LABS: Absolute Lymphocyte Count 2.25 X10^3/uL (0.83-4.51); Absolute Neutrophil Count 6.8 X10^3/uL (2.0-7.7); Basophil# 0.07 X10^3/uL; Basophil% 0.7 % (0-1); Eosinophil# 0.15 X10^3/uL; Eosinophils% 1.4 % (0-5); Hematocrit 44.1 % (40-54); Hemoglobin 14.8 g/dL (13.0-16.5); Lymphocyte # 2.25 X10^3/ul (0.83-4.51); Lymphocyte % 21.1 % (19-41); Mean Corp Hgb Conc 33.6 g/dL (32-36); Mean Corpuscular Volume 101.4 fL (80-94); Mean Platelet Vol. 9.6 fl (6.2-12.0); Monocyte# 1.37 X10^3/uL; Monocyte% 12.8 % (0-10); NRBC Flagged by Analyzer 0 % (0-5); Neutrophil # 6.81 X10^3/uL (2.7-7.7); Neutrophil % 63.7 % (47-70); Platelet Count 290 K/mm3 (150-450); RBC Distribution Width CV 13.2 % (11.6-14.6); RBC Distribution Width SD 49.8 fl (35.1-43.9); Red Blood Count 4.35 M/mm3 (4.6-6.2); White Blood Count 10.7 K/mm3 (4.4-11.0)
[2021-04-11 11:38] VITALS: PULSE 119
[2021-04-11] MEDS: dilTIAZem 25 MG/5 ML Vial 20 MG IV BOLUS (11:39)
[2021-04-11] MEDS: 0.9% Normal Saline 1,000 ML 150 ML IV (11:39)
[2021-04-11 11:42] LABS: Anion Gap 2 (5-15); BUN 18 mg/dL (7-18); BUN/Creat Ratio 20.9 RATIO (10-20); Calcium,Total 9.3 mg/dL (8.5-10.1); Chloride 107 mmol/L (98-107); Creatinine, Serum 0.86 mg/dL (0.70-1.30); EST Glomerular Filtration Rate 93 mL/min (>60); Est Glom Filt Rate - Afr Amer 113 mL/min (>60); Estimated Creatinine Clearance 91.62 ml/min; Glucose 115 mg/dL (74-106); Potassium 4.1 mmol/L (3.5-5.1); Sodium Level 140 mmol/L (136-145); Troponin-I HS 11 pg/mL (3.0-78.0)
[2021-04-11 11:43] VITALS: PULSE 83
[2021-04-11 13:26] VITALS: BP 126/76; PULSE 79; RESP 22; O2SAT 96
--- NOTE | 2021-04-11 13:38 | ED.RN ---
pt frustrated because i dont know what is going on. when this RN asked did the dr not go over things with you? pt states if he had, I wouldnt be asking you. this RN apologized, pt states that this RN was yelling at him, this RN states im not yelling, pt i know youre not. this RN attempted to explain that we are very busy, pt states I DONT CARE.
== END 2021-04-11 13:40 | disposition home or self-care (01) ==
PROVIDERS: Emergency Provider Emergency Medicine; PCP Family Medicine
DX: I48.20 Chronic atrial fibrillation, unspecified (principal); I25.10 Atherosclerotic heart disease of native coronary artery without angina pectoris; F17.210 Nicotine dependence, cigarettes, uncomplicated; E78.00 Pure hypercholesterolemia, unspecified; Z79.899 Other long term (current) drug therapy
CPT/HCPCS: 80048; 84484; 85025; 93005; 96361; 96374; 99284; J7030; A4216

== ENCOUNTER → 2021-04-21 06:40 | Outpatient (CLI) | payer MEDICARE, SELFPAY ==
--- NOTE | 2021-04-21 06:42 | ECHOD_ITS ---
Reason For Study: Afib Procedure This was a 2D Doppler, Color Flow transthoracic echocardiogram. Exam performed in department. Left Ventricle Normal LV size. Left ventricular systolic function is normal. The estimated ejection fraction is 55 %. Stage 1 diastolic dysfunction. No regional wall motion abnormalities noted. Right Ventricle Normal RV size. Normal systolic function. Atria Normal left atrium. Normal right atrium. Mitral Valve Normal mitral valve. Tricuspid Valve Normal tricuspid valve. Mild (1+) tricuspid valve insufficiency. Pulmonary artery systolic pressure is 35 mmHg. Aortic Valve Normal aortic valve. Trisinus/trileaflet aortic valve. Great Vessels Normal aortic root. The pulmonary artery is normal size. Normal inferior vena cava. Inferior vena cava collapse with sniff. Pericardium/Pleural No pericardial effusion. MMode/2D Measurements & Calculations LVIDd: 5.0 cm IVSd: 0.94 cm LA dimension: 3.8 cm LVIDs: 3.5 cm LVPWd: 0.97 cm RVDd: 3.3 cm FS: 29.2 % LAV(MOD-bp): 45.7 ml LA A4 area: 15.9 cm2 RA A4 area: 13.6 cm2 LAV(MOD-bp) Indexed: 22.0 ml/m2 LAV(MOD-sp2): 48.3 ml LAV(MOD-sp4): 39.6 ml Time Measurements MV dec time: 0.31 sec Doppler Measurements & Calculations MV E max antonio: 66.9 cm/sec Lat Peak E' Antonio: 7.7 cm/sec Med Peak E' Antonio: 6.3 cm/sec MV A max antonio: 87.6 cm/sec E/E' lat: 8.6 E/E' med: 10.6 MV E/A: 0.76 MV V2 max: 107.8 cm/sec MV P1/2t max antonio: 72.8 cm/sec Ao V2 max: 162.8 cm/sec MV max P.7 mmHg MV P1/2t: 92.5 msec Ao max P.6 mmHg MV V2 mean: 51.1 cm/sec MV mean P.3 mmHg MV dec slope: 230.4 cm/sec2 MV V2 VTI: 31.4 cm MVA(P1/2t): 2.4 cm2 LV V1 max: 122.8 cm/sec PA V2 max: 152.2 cm/sec TR max antonio: 277.8 cm/sec LV V1 max P.0 mmHg TR max P.9 mmHg ECHO/Echo Complete Interpretation Summary Normal LV size. Left ventricular systolic function is normal. The estimated ejection fraction is 55 %. Stage 1 diastolic dysfunction. Pulmonary artery systolic pressure is 35 mmHg. Ordering Physician: Oren Hall Referring Physician: Inocencio Black Performed By: Darion Elliott RCS
--- NOTE | 2021-04-21 17:58 | STRESSREP ---
Stress Test Report Pharmacologic myocardial perfusion stress test. 70-year-old man with a history of paroxysmal atrial fibrillation. Stress protocol: Resting EKG demonstrates normal sinus rhythm with a rate of 64 bpm normal intervals are noted resting blood pressure is 142/74 mmHg. 0.4 mg of regadenoson was infused per usual protocol followed by rapid intravenous saline flush injection from continuous EKG monitoring was performed. The maximum heart rate attained was noted to be 88 bpm which was 58% of max infected heart rate the maximum workload was 1 metabolic equivalent. Patient maintained sinus rhythm with occasional paroxysms of atrial fibrillation only noted. No ST or T wave changes were noted to suggest abnormal flow reserve. The peak blood pressure was 142/74 mmHg. Myocardial perfusion protocol. 14.5 mCi of technetium 99m sestamibi was injected at rest. 0.4 mg of regadenoson was infused per usual protocol. At peak infusion 43.1 mCi of technetium 99m sestamibi was injected stress images were obtained stress and rest images were reconstructed and compared in the short axis vertical long and horizontal long axis. Gated images were also obtained. Perfusion SPECT analysis: Review of the stress images demonstrate normal uptake of tracer noted in all areas of the myocardium, except for the basal to mid inferior wall. There is a defect noted on the stress images as well as the resting images. Significant GI diaphragmatic attenuation artifact or previous infarct cannot be completely excluded. No reversibility however is noted to suggest ischemia. The rest of the myocardial conn appear to be normally perfused. Gated SPECT analysis: The gated ejection fraction is 60%. Conclusion: Normal pharmacologic myocardial perfusion stress test. Paroxysmal atrial fibrillation noted.
== END ==
PROVIDERS: PCP Family Medicine; Referring Provider Internal Medicine Cardiovascular Disease; Visit Provider Internal Medicine Cardiovascular Disease
DX: I48.91 Unspecified atrial fibrillation (principal); I25.10 Atherosclerotic heart disease of native coronary artery without angina pectoris
CPT/HCPCS: 78452; 93017; 93306; A9500; A4216; J2785

== ENCOUNTER 2021-07-02 13:12 | Outpatient (CLI) | payer MEDICARE, SELFPAY ==
[2021-07-02 10:11] LABS: Anion Gap 4 (5-15); BUN 16 mg/dL (7-18); BUN/Creat Ratio 17.4 RATIO (10-20); Calcium,Total 9.4 mg/dL (8.5-10.1); Chloride 103 mmol/L (98-107); Cholesterol 131 mg/dL (200); Creatinine, Serum 0.92 mg/dL (0.70-1.30); EST Glomerular Filtration Rate 87 mL/min (>60); Est Glom Filt Rate - Afr Amer 105 mL/min (>60); Glucose 107 mg/dL (74-106); High Density Lipoprotein 48 mg/dL; Potassium 4.4 mmol/L (3.5-5.1); Sodium Level 140 mmol/L (136-145); Triglycerides 77 mg/dL; Very Low Density Lipoprotein 15 mg/dL (5-40)
== END 2021-07-02 23:59 | disposition short-term general hospital (02) ==
LOC: PSN 13:13
PROVIDERS: PCP Family Medicine; Referring Provider Internal Medicine Cardiovascular Disease; Visit Provider Internal Medicine Cardiovascular Disease
DX: I48.0 Paroxysmal atrial fibrillation (principal); E78.5 Hyperlipidemia, unspecified
CPT/HCPCS: 36415; 80048; 80061; 93225; 93226